=== PATIENT | female | born 1980 | race Caucasian/White ===

== ENCOUNTER 2020-11-20 11:30 | Outpatient (RCR) | payer OTHER, SELFPAY ==
[2020-09-23 09:41] VITALS: BMI 31.5
[2020-10-14 12:40] VITALS: BMI 31.3
[2020-11-20 11:38] VITALS: BMI 30.8
[2020-11-20 11:39] VITALS: BMI 30.8
== END 2020-12-09 15:52 | disposition home or self-care (01) ==
LOC: ANHDMC 11:30
PROVIDERS: Visit Provider Obstetrics & Gynecology
DX: R63.5 Abnormal weight gain (principal); Z71.3 Dietary counseling and surveillance
CPT/HCPCS: 97802; 97803

== ENCOUNTER 2022-12-20 17:42 | Outpatient (CLI) | payer OTHER, SELFPAY ==
[2022-12-24 06:07] LABS: FSH 11.2 mIU/mL (***)
[2022-12-27 10:20] LABS: Estradiol, Ultrasensitive 106 pg/mL
== END 2022-12-20 17:43 | disposition home or self-care (01) ==
LOC: ANHLAB 17:44
PROVIDERS: Visit Provider Student in an Organized Health Care Education/Training Program
DX: N95.1 Menopausal and female climacteric states (principal)
CPT/HCPCS: 36415; 82670; 83001; 84443

== ENCOUNTER 2023-11-28 16:14 | Outpatient (CLI) | payer OTHER, SELFPAY ==
--- NOTE | ~2023-11-28 | XR_ITS ---
XR chest 2V 11/28/2023 16:29 Indication: Acute bronchitis Procedure: 2 view chest Comparison: 03/01/2007 Findings: There is left basilar atelectasis/scarring. No focal pneumonia, edema, pleural effusion or pneumothorax. No acute osseous abnormality. Impression: 1: Left basilar atelectasis/scarring. Reviewed, dictated and finalized at location B. Impression: 1: Left basilar atelectasis/scarring.
== END 2023-11-28 16:15 | disposition home or self-care (01) ==
LOC: ANHIMG 16:16
PROVIDERS: Visit Provider Internal Medicine
DX: J20.9 Acute bronchitis, unspecified (principal); R91.8 Other nonspecific abnormal finding of lung field
CPT/HCPCS: 71046

== ENCOUNTER 2024-07-24 17:06 | Outpatient (CLI) | payer OTHER, SELFPAY ==
--- OUTSIDE RECORDS SUMMARY | 2024-07-24 17:13 | XMS_ITS | Data Portability ---
Author Organization [facility] Address [address] [place] [address] Care Team Providers Care Supercalender Operator Name Role Phone DUNG DAY Primary Care Provider [phone] Assessment Encounter Date Assessment Date Assessment LastModified by Organization Details LastModified Time 08/25/2023 08/25/2023 Migraines stable hypothyroid stable dyslipidemia continue with atorvastatin I will see her back in October we will hold off on any blood work just yet we can get some of that later she will follow-up with her breast [email or web address] Not available 09/18/2023 18:33:42 11/03/2023 11/03/2023 healthy lifestyle care instructions continue current therapy atorvastatin levothyroxine and sumatriptan as needed Zyrtec buol-flv-xwstydu they are discussing with oncology what next step is for therapy for breast cancer follow up with me in 4 months. [email or web address] Not available 11/13/2023 19:28:34 11/28/2023 11/28/2023 obtain chest x-ray doxycycline 100 b.i.d. for 7 days she can continue with the Mucinex and we will give her a few days off work [email or web address] Not available 12/03/2023 13:41:20 04/02/2024 04/02/2024 healthy lifestyle care instructions continue current therapy atorvastatin levothyroxine and sumatriptan as needed Zyrtec [id number] they are discussing with oncology what next step is for therapy for breast cancer follow up with me in 4 months. we will try to obtain her Pap smear results also recommended to stay up-to-date on immunizations follow up with me in 4 months we will continue current therapy all questions have been answered and Oncology note has been reviewed [email or web address] Not available 04/15/2024 12:45:14 05/25/2024 05/25/2024 swabs in the office today for flu and COVID are negative push fluids Tylenol for aches and pains doxycycline 100 b.i.d. 1 week call if not improved [email or web address] Not available 05/26/2024 13:28:12 Plan of Treatment Reminders Order Date Submit Date Provider Last Modified By Organization Details Last Modified Time Details Appointments ANY 15 2024 03:15P Quique Day MD Not available Not available Not available Lab influenza virus A + B + SARS-CoV- 2 (COVID19) Ag panel, rapid IA, upper respirato ry specimen 2024 025 In-Office Order, Internal Use Only DO Not Attach Compendium DO Not Attach Compendium, Do Not Delete/merge, [id number] 05/25/2024 16:27:38 Referral None recorded. Procedures None recorded. Surgeries None recorded. Imaging XR, chest 2023 024 [email or web address] Not available 11/30/2023 18:08:44 Medication Orders doxycycli ne hyclate 100 mg capsule 2024 025 [email or web address] [id number], [address] [place], [address], 05/25/2024 16:27:38 doxycycli ne hyclate 100 mg capsule 2023 024 CYNDI [facility] #[id number], [address] [place], [address], 04/02/2024 11:37:40 Patient TargetsNo targets recorded. Patient Instructions Encounter Date Encounter Id Patient Instructions Last Modified By Organization Details Last Modified Time 11/03/2023 [id number] A healthy lifestyle: care instructions [email or web address] Not available 11/13/2023 19:28:52 04/02/2024 [id number] A healthy lifestyle: care instructions [email or web address] Not available 04/02/2024 12:11:22 05/25/2024 [id number] A healthy lifestyle: care instructions [email or web address] Not available 05/25/2024 16:27:38 Reason for Referral None Reported. Results Created Date Observation Date Name Description Value Unit Range Abnormal Flag Note LastModifiedBy Organization Detail LastModifiedTime 05/25/19 25 05/25/2024 influ alesia virus A + B + SARS- CoV-2 (COVI D19) Ag panel , rapid IA, upper respi rator y speci men Flu A negati ve Not Available In-Office Order Internal Use Only DO Not Attach Compendium DO Not Attach Compendium, Do Not Delete/merge, [id number] 05/25/2024 16:02:46 05/25/19 25 05/25/2024 influ alesia virus A + B + SARS- CoV-2 (COVI D19) Ag panel , rapid IA, upper respi rator y speci men Flu B negati ve Not Available In-Office Order Internal Use Only DO Not Attach Compendium DO Not Attach Compendium, Do Not Delete/merge, [id number] 05/25/2024 16:02:46 05/25/19 25 05/25/2024 influ alesia virus A + B + SARS- CoV-2 (COVI D19) Ag panel , rapid IA, upper respi rator y speci men Rapid SARS CoV 2 Ag, QL IA, respiratory specimen negati ve Not Available In-Office Order Internal Use Only DO Not Attach Compendium DO Not Attach Compendium, Do Not Delete/merge, [id number] 05/25/2024 16:02:46 11/29/19 24 11/28/2023 XR, chest No observ ation record ed. [facility] [address], [place], [address], 12/04/2023 15:12:16 Result Notes None recorded. Problems Name Problem SNOMED Code Status Onset Date Resolution Date Notes Provider Name and Address Organization Details Recorded Time Acute bronchitis 80546172 Active 2023 Ramírez Rahman MA null, [place] - [facility] 4 16:43:37 Migraine 94161647 Active 2024 Dung Day MD Attn: Tom amin,[address] [facility], [place], [address], [facility] - [facility] 5 12:36:09 Hypothyroidism 72337587 Active 2024 Dung Day MD Attn: Tom amin,[address] [facility], [place], [address], [facility] - [facility] 5 12:36:10 Obesity 292182602 Active 2024 Dung Day MD Attn: Tom amin,[address] [facility], [place], [address], [facility] - [facility] 5 12:36:11 Hyperlipidemia 73434181 Active 2024 Dung Day MD Attn: Tom amin,[address] [facility], [place], [address], [facility] - [facility] 5 12:36:12 History of malignant neoplasm of breast 268440096 Active 2024 Dung Day MD Attn: Tom amin,[address] [facility], [place], [address], [facility] - [facility] 5 12:36:26 Problem Notes None recorded. Procedures Surgical History Date Name Laterality Status Provider Name and Address Organization Details Recorded Time Breast Surgery completed Kandi De Santiago MA [facility] 08/25/2023 12:24:47 Mastectomy completed Kandi De Santiago MA [facility] 08/25/2023 12:25:10 Imaging Results Imaging Date Name Status LastModified by Organiz ation Details LastModified Time 11/28/2023 XR, chest completed [facility] [address], [place], [address], 12/04/2023 15:12:16 Procedure Notes None recorded. Medical Equipment None Reported. Allergies Allergen ID Allergen Name Allergen Category Reaction Reaction Severity Criticality Documentation Date Start Date Code Code System Note Provider Name and Address Organization Details Recorded Time 815441 Substance with sulfonami de structure and antibacte rial mechanism of action (substanc e) medicatio n hives swelling Not available Not available Not available 08/25/2023 18031 8003 SNOMED Not Available Not Available Not Available 833751 Product containin g penicilli n (product) medicatio n hives swelling Not available Not available Not available 08/25/2023 55640 8001 SNOMED Not Available Not Available Not Available 526408 Macrobid medicatio n hives swelling Not available Not available Not available 08/25/2023 70237 1 RxNorm Not Available Not Available Not Available 792098 nitrofura ntoin medicatio n hives swelling Not available Not available high 05/25/2024 7454 RxNorm Throa t swell ing Not Available Not Available Not Available Medications Name Sig Start Date Stop Date Status Note LastModified by Organization Details LastModified Time anastrozole 1 mg tablet TAKE 1 TABLET (1 MG TOTAL) BY MOUTH DAILY START 11/30/23 active Not Available Not Available No t Available doxycycline hyclate 100 mg capsule TAKE 1 CAPSULE BY MOUTH TWICE A DAY FOR 10 DAYS active Not Available Not Available No t Available atorvastati n 10 mg tablet TAKE 1 TABLET BY MOUTH EVERY DAY active Not Available Not Available No t Available sumatriptan 50 mg tablet TAKE 1 TABLET BY MOUTH AT ONSET OF HEADACHE. MAY REPEAT IN 2 HOURS. MAX 2 TABS/12 HOURS 2024 active Not Available Not Available Not Avai lable levothyroxi ne 75 mcg tablet TAKE 1 TABLET BY MOUTH EVERY DAY active Not Available Not Available No t Available ferrous sulfate 325 mg (65 mg iron) tablet TAKE 1 TABLET BY MOUTH 3 TIMES A DAY WITH MEALS. 11/27 completed Not Available Not Available Not Available prednisone 50 mg tablet PLEASE SEE ATTACHED FOR DETAILED DIRECTION S 04/02 completed Not Available Not Available Not Available norethindro ne (contracept juany) 0.35 mg tablet 0.35 MG ORALLY DAILY 08/24 completed Not Available Not Available Not Available cefdinir 300 mg capsule TAKE 1 CAPSULE BY MOUTH EVERY 12 HOURS FOR 7 DAYS 08/24 completed Not Available Not Available Not Available oxycodone 5 mg tablet 08/24 completed Not Available Not Available Not Available Lupron Depot once a month active Not Available Not Available No t Available Vitals Date Recorded Body weight Body mass index (BMI) Body height Heart rate Oxygen saturation Oxygen saturation in Arterial blood by Pulse oximetry Systolic blood pressure Diastolic blood pressure Provider Name and Address Organization Details Last Updated DateTime 40281.9 2 g 31.3 kg/m2 167.64 cm 65 /min 99 % 99 % 124 mm[Hg] 80 mm[Hg] Kandi Anyi, MA [facility] 4 12:40:29 Date Recorded Body height Body mass index (BMI) Body weight Heart rate Oxygen saturation Oxygen saturation in Arterial blood by Pulse oximetry Systolic blood pressure Diastolic blood pressure Provider Name and Address Organization Details Last Updated DateTime 4 167.64 cm 33.2 kg/m2 44245.8 7 g 66 /min 99 % 99 % 140 mm[Hg] 80 mm[Hg] Roxana Wynn MA [facility] 4 16:29:29 Date Recorded Body height Body mass index (BMI) Body weight Heart rate Oxygen saturation Oxygen saturation in Arterial blood by Pulse oximetry Systolic blood pressure Diastolic blood pressure Provider Name and Address Organization Details Last Updated DateTime 4 167.64 cm 32.1 kg/m2 93137.1 7 g 76 /min 98 % 98 % 132 mm[Hg] 68 mm[Hg] Ely Locke MA [facility] 4 16:13:17 Date Recorded Body height Body mass index (BMI) Body weight Heart rate Oxygen saturation Oxygen saturation in Arterial blood by Pulse oximetry Systolic blood pressure Diastolic blood pressure Provider Name and Address Organization Details Last Updated DateTime 4 167.64 cm 32.8 kg/m2 77996.2 5 g 63 /min 98 % 98 % 130 mm[Hg] 76 mm[Hg] Lyric Abdi MA [facility] 4 11:36:58 Date Recorded Body height Body mass index (BMI) Body weight Heart rate Oxygen saturation Oxygen saturation in Arterial blood by Pulse oximetry Systolic blood pressure Diastolic blood pressure Provider Name and Address Organization Details Last Updated DateTime 5 167.64 cm 32.8 kg/m2 85719.2 5 g 99 /min 100 % 100 % 124 mm[Hg] 80 mm[Hg] Lyric Abdi MA [facility] 5 15:08:51 Social History Question Answer Notes LastModified by Organizat ion Details LastModified Time Tobacco Smoking Status Never Smoker Kandi De Santiago MA null, [facility] 08/25/2023 12:27:27 What Is Your Level Of Alcohol Consumption? Occasional Information not available 08/25/2023 Are You Blind Or Do You Have Difficulty Seeing? No Information n ot available 08/25/2023 In The 14 Days Before Symptom Onset, Have You Had Close Contact With A Laboratory-confirm ed COVID-19 While That Case Was Ill? No Information n ot available 11/03/2023 In The 14 Days Before Symptom Onset, Have You Had Close Contact With A Person Who Is Under Investigation For COVID-19 While That Person Was Ill? No Information not available 11/03/2023 Have You Been To An Area Known To Be High Risk For COVID-19? No Information not available 11/03/2023 Are You Currently Employed? Yes Information not available 11/03/2023 Are You Deaf Or Do You Have Serious Difficulty Hearing? No Information not available 08/25/2023 What Type Of Diet Are You Following? REGULAR Information n ot available 11/03/2023 Are There Any Guns Present In Your Home? No Information not available 11/03/2023 What Was The Date Of Your Most Recent Tobacco Screening? 05/25/2024 [email or web address] Information not available 05/25/2024 What Is Your Relationship Status? Information not available 08/25/2023 Do You Use Your Seat Belt Or Car Seat Routinely? Yes Information not available 08/25/2023 Do You Have Smoke And Carbon Monoxide Detectors In Your Home? Yes Information not available 11/03/2023 Do You Feel Stressed (tense, Restless, Nervous, Or Anxious, Or Unable To Sleep At Night)? [id number] Information not available 08/25/2023 Do You Use Any Illicit Or Recreational Drugs? No Information not available 11/03/2023 Do You Use Sunscreen Routinely? Yes Information not available 11/03/2023 Has Tobacco Cessation Counseling Been Provided? No Information not available 11/03/2023 Sex: Female Functional Status Question Answer Note LastModified by Organization D etails LastModified Time Are you able to care for yourself? Yes Information n ot available 08/25/2023 What is your exercise level? None Information not available 11/03/2023 Mental Status None recorded. Family History Relationship Description Onset Age of this Age Resolved Age Notes LastModified by Organization Details LastModified Time Mother Disorder of thyroid gland [email or web address] Not available 2023 12:26:02 Sister Disorder of thyroid gland [email or web address] Not available 2023 12:26:02 Sister Migraine [email or web address] Not availabl e 08/25/2023 12:27:06 Medical History Condition Response Cancer Y Headaches Y Thyroid Problems Y High Cholesterol Y Gynecological History Statement/Question Response If Post Menopausal, Age at Menopause 43 Obstetrics History GPAL:G 1 P 1 0 0 1 Type Value Full Term 1 Living 1 Total 1 Past Encounters Encounter ID Performer Location Encounter Start Date Encounter Closed Date Diagnosis/Indication Diagnosis SNOMED-CT Code Diagnosis ICD10 Code Diagnosis Note [id number] Dung Day MD [facility] [employer]: [facility] [employer] [facility] [facility] [place] [address] [place] [address] 08/25/2023 12:08:18 08/25/2023 13:04:56 Migraine 85041200 G43.909 Hypothyroidism 36282077 E03.9 Malignant tumor of breast 645575601 C50.165 [id number] Dung Day MD [facility] [employer]: [facility] [employer] [facility] [place] [address] [place] [address] 11/03/2023 16:06:16 11/03/2023 17:14:48 Obesity 668472321 E66.8 Hyperlipidemia 95968007 E78.5 Hypothyroidism 26559822 E03.9 Migraine 13704719 G43.90 9 [id number] Dung Day MD [facility] [employer] [facility] [place] [address] [place] [address] 11/28/2023 15:52:17 11/28/2023 16:47:06 Acute bronchitis 22616864 J20.9 [id number] Dung Day MD [facility] [employer]: [facility] [employer] [facility] [place] [address] [place] [address] 04/02/2024 11:19:22 04/02/2024 12:37:44 Body mass index 30+ - obesity 874750049 Z68.32 Overweight 921166846 E66 .3 Hyperlipidemia 61091236 E78.5 Obesity 199554584 E66.81 1 Hypothyroidism 59560694 E03.9 Migraine 31501466 G43.90 9 History of malignant neoplasm of breast 950757266 Z85.3 [id number] [facility] [address] [place] [address] 05/25/2024 14:47:42 05/25/2024 15:54:09 Body mass index 30+ - obesity 204001256 Z68.32 Obesity 894715212 E66.9 Bronchitis 04715887 J40 Upper resp iratory infection 99256193 J06.9 Health Concerns Section Related Observation LastModified by Organization Detai ls LastModified Time None Recorded Concern Status LastModified by Organization Details LastModified Time None Recorded Advance Directives Directive None Recorded Payers Encounter Date Sequence Insurance Name Policy Number Policy Ndiaye Covered Member ID Ndiaye Member ID Guarantor Name 08/25/2023 1 [facility] [id number] Beverly Allen [id number] Beverly Allen 08/25/2023 2 [facility] [id number] Dylon Allen [id number] Beverly Allen 11/03/2023 1 [facility] [id number] Beverly Allen [id number] Beverly Allen 11/03/2023 2 [employer] [id number] Dylon Allen [id number] Beverly Allen 11/28/2023 1 [facility] [id number] Beverly Allen [id number] Beverly Allen 11/28/2023 2 [facility] [id number] Dylon Allen [id number] Beverly Allen 04/02/2024 1 [facility] [id number] Beverly Allen [id number] Beverly Allen 04/02/2024 2 [facility] [id number] Dylon Allen [id number] Beverly Allen 05/25/2024 1 [facility] [id number] Beverly Allen [id number] Beverly Allen 05/25/2024 2 [facility] [id number] Dylon Allen [id number] Beverly Allen Notes Date Note Type Note Provider Name and Address Organization Details Recorded Time text/html 44 for follow-up of medical problems migraines have been doing fine hypothyroid she is a little bit tired and dyslipidemia does take her atorvastatinBiggest issue right now is invasive lobular carcinoma the right breast she underwent mastectomy with subsequent postop hematoma requiring evacuation and drainage. Slow steady improvement in today says that she is feeling pretty good Dung Day MD Attn: Accounting,[address] [facility], [place], [address], [place] [facility] 09/18/2023 18:35:23 4 text/html 1. Headache stable. 2. Hypothyroid no heat or cold intolerance. 3. Dyslipidemia takes her atorvastatin trying to watch diet. 4. Breast cancer working through issues with her specialists. 5. Zyrte for her allergies Dung Day MD Attn: Accounting,[address] [facility], [place], [address], [place] [facility] 11/13/2023 19:28:54 4 text/html 2 weeks of some cough and now getting a little bit yellow sputum no fever no chills she has tried some Mucinex she has had some fatigue but she has not been short of breath Dung Day MD Attn: Accounting,[address] [facility], [place], [address], [place] [facility] 12/03/2023 13:41:36 4 text/html follow up of medical problems hypothyroid no heat or cold intolerance dyslipidemia she was trying to follow a low-fat diet migraines have been stable she is following up with Oncology for her breath breast cancer Dung Day MD Attn: Accounting,[address] [facility], [place], [address], [place] [facility] 04/15/2024 12:45:33 5 text/html 2 days sinus congestion now that is turning a little bit yellow she is going to lot of drainage that is developed into a little bit of a cough no fever or chills but maybe low-grade temp has not had any myalgias. This morning she started coughing a fair amount of yellow sputum up Dung Day MD Attn: Accounting,[address] [facility], [place], [address], [place] [facility] 05/26/2024 13:28:43 OBGyn Episode No OBEpisode recorded.
--- OUTSIDE RECORDS SUMMARY | 2024-07-24 17:14 | XMS_ITS | Clinical Summary ---
Author Organization [facility] [address] [facility] nya Address [address] [facility] [place] [address] Care Team Providers Care Metal Fabricator Helper Name Role Phone Israel Day MD Primary Care Provider [phone] Alhaji Guerrero MD Unavailable [phone] Celi Rodríguez MD Unavailable [phone] Yony Iverson DO Unavailable [phone] Allergies Active Allergy Reactions Criticality Noted Date Comments Nitrofurantoin Hives,Swelling Medium Throat swelling Penicillins Other (See comments) Low Was informed of this in childhood, unsure of reaction Sulfa (Sulfonamide Antibiotics) Hives,Swelling Medium Throat swelling Medications atorvastatin (LIPITOR) 10 mg tablet Take 1 tablet (10 mg total) by mouth nightly 01/20/20 21 Active cetirizine (ZyrTEC) 10 mg tablet Take 1 tablet every day by oral route as needed. 05/08/19 21 Active levothyroxine (SYNTHROID) 75 mcg tablet Take 1 tablet (75 mcg total) by mouth daily Active SUMAtriptan (IMITREX) 50 mg tablet TAKE 1 TABLET BY MOUTH AT ONSET OF HEADACHE. MAY REPEAT IN 2 HOURS, ONLY 2 PILLS IN 12 HOUR SPAN Active acetaminophen-asp irin-caffeine (EXCEDRIN MIGRAINE) 250-250-65 mg per tablet Take 2 tablets by mouth every 6 (six) hours as needed for headaches Active BLACK COHOSH ORAL Take 1 tablet by mouth 2 (two) times a day Active evening primrose oil 500 mg capsule Take 2 capsules (1,000 mg total) by mouth daily Active predniSONE (DELTASONE) 50 mg tablet Take 1 tablet (50 mg) by mouth as needed (Prior to CT) TAKE 13 HRS, 7 HRS, AND [address] SCAN. TAKE WITH OTC BENADRYL 50 MG 1 HR PRIOR 3 tablet 03/12/20 24 Active anastrozole (ARIMIDEX) 1 mg tabletIndications :Early Breast Cancer HR Positive and Postmenopausal Take 1 tablet (1 mg total) by mouth daily 30 tablet 5 07/21/19 25 025 Active azithromycin (Zithromax Z-Dimitrios) 250 mg tablet Take 2 tablets (500 mg total) by mouth daily for 1 day, THEN 1 tablet (250 mg total) daily for 4 days. 6 tablet 07/25/19 25 025 Active anastrozole (ARIMIDEX) 1 mg tabletIndications :Early Breast Cancer HR Positive and Postmenopausal Take 1 tablet (1 mg total) by mouth daily Start 11/30/23 90 tablet 1 01/05/20 24 025 Discontinued Active Problems Problem Noted Date Diagnosed Date Personal history of radiation therapy 12/07/2023 Anxiety disorder 07/18/2023 Hyperlipidemia 07/18/2023 Invasive lobular carcinoma of breast, stage 1, r ight 06/28/2023 Cancer Staging:Pathologic stage from 09/27/2023:Stage IB(pT3, pN1(sn), cM0, G1, ER+, ND+, HER2-) - Signed by Celi Rodríguez MD on 09/27/2023 Breast mass 02/08/2021 Mastodynia 02/08/2021 Hypothyroidism 01/19/2021 Knee pain 10/08/2013 Resolved Problems Problem Noted Date Diagnosed Date Resolved Date Invasive ductal carcinoma of breast, female, right 06/28/2023 06/28/2023 Encounters Date Type Department Care Team Description 07/24/2024 Orders Only [facility] Oncology [address] [facility] [address] [place] [phone] Yony Iverson DO 07/19/2024 4:30 PM CDT Infusion [facility] at [address] [place] [address] Invasive lobular carcinoma of breast, stage 1, right (HCC) (Primary Dx) 07/18/2024 Orders Only [facility] [address] [place] [phone] Yony Iverson DO 06/21/2024 4:00 PM CDT Office Visit [facility] Medical Office Building 2 Radiation Oncology [address] [place] [phone] Melissa Flor PA Invasive lobular carcinoma of breast, stage 1, right (HCC) (Primary Dx); Personal history of radiation therapy 06/21/2024 1:45 PM CDT Infusion [facility] at [address] [phone] Invasive lobular carcinoma of breast, stage 1, right (HCC) (Primary Dx) 06/21/2024 1:15 PM CDT Office Visit [facility] [address] [place] [phone] Yony Iverson, Invasive lobular carcinoma of breast, stage 1, right (HCC) (Primary Dx); Malignant neoplasm of female breast, unspecified estrogen receptor status, unspecified laterality, unspecified site of breast (HCC) 06/21/2024 12:30 PM CDT Lab [address] [address] Invasive lobular carcinoma of breast, stage 1, right (HCC) 06/21/2024 Orders Only [facility] [address] [place] [phone] Yony Iverson DO 05/24/2024 3:45 PM PROJECT MANAGER SENIOR Infusion [facility] at [address] [phone] Invasive lobular carcinoma of breast, stage 1, right (HCC) (Primary Dx) 05/24/2024 Orders Only [facility] [address] [place] [phone] Yony Iverson DO 04/26/2024 3:45 PM PROJECT MANAGER SENIOR Infusion [facility] at [facility] [address] [place] [address] Invasive lobular carcinoma of breast, stage 1, right (HCC) (Primary Dx) 04/25/2024 Orders Only [facility] [address] [facility] [address] [place] [address] Yony Iverson DO from Last 3 Months Surgical History Surgery Date Site/Laterality Comments BREAST BIOPSY 06/21/2023 Right local in office MASTECTOMY Bilateral Medical History Medical History Date Comments Headache Overweight Hypercholesteremia Thyroid disease Anxiety Heart murmur informed of this as a child. Allergic rhinitis Asthma as a child Family History Medical History Relation Name Comments Bone cancer Father Ovarian cancer Father's Sister Heart attack Maternal Grandfather Colon cancer Maternal Grandmother Bone cancer Mother Liver cancer Mother Throat cancer Mother No Known Problems Paternal Grandfather Ovarian cancer Paternal Grandmother Relation Name Status Comments Father Father's Sister Maternal Grandfather Maternal Grandmother Mother Paternal Grandfather Paternal Grandmother Social History Tobacco Use Types Packs/Day Years Used Date Smoking Tobacco: Never Passive Smoke Exposure: Past Smokeless Tobacco: Never Tobacco Cessation:Counseling Given: Not Answered Passive Exposure Comments:as a child [facility] Utilities Answer Date Recorded In the past 12 months has th e electric, gas, oil, or water company threatened to shut off services in your home? No 08/12/2023 Social Connection and Isolat ion Panel [NHANES] Answer Date Recorded In a typical week, how many times do you talk on the phone with family, friends, or neighbors? More than three times a week 08/12/2023 How often do you get togethe r with friends or relatives? More than three times a week 08/12/2023 How often do you attend chur ch or pentecostal services? Never 08/12/2023 Do you belong to any clubs o r organizations such as yazidi groups, unions, fraternal or athletic groups, or school groups? No 08/12/2023 How often do you attend meet ings of the clubs or organizations you belong to? Never 08/12/2023 Are you , , di vorced, , never , or living with a partner? 08/12/2023 AUDIT-C Answer Date Recorded Q1: How often do you have a drink containing alc ohol? Monthly or less 08/10/2023 Q2: How many drinks containi ng alcohol do you have on a typical day when you are drinking? 1 or 2 08/10/2023 Q3: How often do you have si x or more drinks on one occasion? Never 08/10/2023 Overall Financial Resource Strain (CARDIA) Answe r Date Recorded How hard is it for you to pa y for the very basics like food, housing, medical care, and heating? Not very hard 08/12/2023 Hunger Vital Sign Answer Date Recorded Within the past 12 months, y ou worried that your food would run out before you got the money to buy more. Never true 08/12/19 24 Within the past 12 months, t he food you bought just didn't last and you didn't have money to get more. Never true 08/12/2023 PRAPARE - Transportation Answer Date Re corded In the past 12 months, has l ack of transportation kept you from medical appointments or from getting medications? No 06/2023 In the past 12 months, has l ack of transportation kept you from meetings, work, or from getting things needed for daily living? No 08/12/2023 Housing Stability Vital Sign Answer Corby e Recorded In the last 12 months, was t here a time when you were not able to pay the mortgage or rent on time? No 08/12/2023 In the last 12 months, how many places have you lived? 1 08/12/2023 In the last 12 months, was t here a time when you did not have a steady place to sleep or slept in a alf (including now)? No 08/12/2023 Personal Safety Answer Date Recorded Have you ever been in or are you currently in a harmful physical or emotional relationship or is someone making you feel afraid or unsafe? 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 Not on file Not on file Not on maría e Obstetrics History Para Term AB IAB SAB Ectopic Multiple Livin g Live Births 1 Date Outcome GA Total Labor Labor/2nd/3rd Weight Sex Type Anes PTL Iris A1 A5 Name Clin Last Filed Vital Signs Vital Sign Reading Time Taken Comments Blood Pressure 155/90 07/19/2024 3:50 PM CDT Pulse 69 07/19/2024 3:50 PM CDT Temperature 36.7 C (98 F) 07/19/2024 3:50 PM CDT Respiratory Rate 18 07/19/2024 3:50 PM CDT Oxygen Saturation 100% 07/19/2024 3:50 PM CDT Inhaled Oxygen Concentration - - Weight 93.6 kg (206 lb 6.4 oz) 07/19/2024 3:50 P M CDT Height 167.6 cm (5' 5.98 ) 08/10/2023 1:50 PM CD T Body Mass Index 33.33 08/10/2023 1:50 PM CDT Plan of Treatment Health Maintenance Due Date Last Done Comments Cervical Cancer Screening 1979 Colon Cancer Screening-Colonoscopy 1979 Depression Screening 1979 Hepatitis C Screening 1979 Regular Well Visit/Exam 18-64 1997 Pneumococcal vaccine <65 (1 of 2 - PCV) 1998 Zoster Vaccine (1 of 2) 1998 DTaP/Tdap/Td Vaccine (1 - Tdap) 12/03/2003 12/02/2003 Covid-19 Vaccine (2 - Vic risk series) 08/13/2020 07/16/2020, 07/10/2020 Breast Cancer Screening-Mammogram 06/07/2024 06/07/2023, 05/03/2022, 01/08/2021, Additional history exists Influenza Vaccine (Season Ended) 2024 Hepatitis B Screening Completed 12/27/2003, 004 HPV Vaccines Aged Out No longer eligi ble based on patient's age to complete this topic Medical Devices Implanted Type Area Dimension Mill Worker Device Identifier Shelf Expiration Date Model / Serial / Lot 480 Biomedical [facility] Eviva 13cm Identifier Biopsy Site [id number] - [id number] Implanted:Qty: 1 on 06/21/2023 by Alhaji Guerrero MD at [facility] [id number] 12/01/2023 SMARK-EVIV A-13 / / [id number] Procedures Procedure Name Priority Date/Time Associated Diagnosis Comments EGFR Routine 06/21/2024 12:30 PM CDT Invasive lobular carcinoma of breast, stage 1, right (HCC) DIFFERENTIAL AUTO Routine 06/21/2024 12: 30 PM CDT Invasive lobular carcinoma of breast, stage 1, right (HCC) CANCER ANTIGEN 15-3 Routine 06/21/2024 1 2:30 PM CDT Invasive lobular carcinoma of breast, stage 1, right (HCC) CBC WITH AUTO DIFFERENTIAL Routine 06/21/2024 12:30 PM CDT Invasive lobular carcinoma of breast, stage 1, right (HCC) COMPREHENSIVE METABOLIC PANEL Routine 06/21/2024 12:30 PM CDT Invasive lobular carcinoma of breast, stage 1, right (HCC) DIAGNOSTIC MAMMOGRAM BILATERAL W LOC Schedule Routine, Read Routine (OP Routine) 06/07/2023 10:49 AM PROJECT MANAGER SENIOR Mastodynia from Last 3 Months or Most Recently Relevant to Health Maintenance Results * eGFR (06/21/2024 12:30 PM CDT) eGFR >90 >=60 mL/min/1. 73 m2 Comment: Interpretive Data Reference Interval Normal >/= 90 mL/min/1.73m2 Mildly decreased* 60 - 89 mL/min/1.73m2 Mildly to moderately decreased 45 - 59 mL/min/1.73m2 Moderately to severely decreased 30 - 44 mL/min/1.73m2 Severely decreased 15 - 29 mL/min/1.73m2 Kidney Failure < 15 mL/min/1.73m2 *Relative to young adult level Estimated glomerular filtration rate is determined by the 2020 CKD-EPI equation recommended by the National Kidney Foundation (A Unifying Approach to GFR Estimation: Recommendations of the NKF-ASK Task Force on Reassessing the Inclusion of Race in Diagnosing Kidney Disease, JASN 2020). The CKD-EPI equation should not be used for patients with unstable renal function and has not been validated in children and those over 70. Current interpretive data was last reviewed 2021. Testing performed by: [address] [address] Blood 06/21/2024 12:3 0 PM CDT 06/21/2024 12:31 PM CDT us Yony Iverson DO LAB BLOOD ORDERABLES Final R esult [facility] [address] [facility] Department of Laboratories [place], [place] [id number] * Differential, auto (06/21/2024 12:30 PM CDT) Neutrophil abs 5.9 1.5 - 6.5 K/cumm Comment:Testing performed by : [address] [address] Imm gran abs 0.1 0.0 - 0.1 K/cumm RHINA Comment:Testing performed by : [address] [address] Lymphocyte abs 1.0 0.8 - 3.3 K/cumm RHINA Comment:Testing performed by : [address] [address] Monocyte abs 0.5 0.2 - 0.8 K/cumm RHINA Comment:Testing performed by : [address] [address] Eosinophil abs 0.2 0.0 - 0.5 K/cumm RHINA Comment:Testing performed by : [address] [address] Basophil abs 0.0 0.0 - 0.1 K/cumm RHINA Comment:Testing performed by : [address] [address] Neutrophil pct 76.3 % RHINA Comment: Interpretive Data Percent cell count reference ranges are not reported, since discordance with absolute values may lead to misinterpretation of CBC data. Current Interpretive Data was last revised on 2017. Testing performed by: [address] [address] Imm gran pct 0.8 % [facility] Comment: Interpretive Data Percent cell count reference ranges are not reported, since discordance with absolute values may lead to misinterpretation of CBC data. Current Interpretive Data was last revised on 2017. Testing performed by: [address] [address] Lymphocyte pct 13.2 % [facility] Comment: Interpretive Data Percent cell count reference ranges are not reported, since discordance with absolute values may lead to misinterpretation of CBC data. Current Interpretive Data was last revised on 2017. Testing performed by: [address] [address] Monocyte pct 6.6 % [facility] Comment: Interpretive Data Percent cell count reference ranges are not reported, since discordance with absolute values may lead to misinterpretation of CBC data. Current Interpretive Data was last revised on 2017. Testing performed by: [address] [address] Eosinophil pct 2.8 % [facility] Comment: Interpretive Data Percent cell count reference ranges are not reported, since discordance with absolute values may lead to misinterpretation of CBC data. Current Interpretive Data was last revised on 2017. Testing performed by: [address] [address] Basophil pct 0.3 % [facility] Comment: Interpretive Data Percent cell count reference ranges are not reported, since discordance with absolute values may lead to misinterpretation of CBC data. Current Interpretive Data was last revised on 2017. Testing performed by: [address] [address] Blood 06/21/2024 12:3 0 PM CDT 06/21/2024 12:31 PM CDT us Yony Iverson DO LAB BLOOD ORDERABLES Final R esult [facility] [address] [facility] [place] [address] * CBC with auto differential (06/21/2024 12:30 PM CDT) [facility] WBC 7.7 3.8 - 9.9 K/cumm Comment:Testing performed by : [address] [address] Hgb 12.7 11.9 - 15.5 g/dL RHINA Comment:Testing performed by : [address] [address] Hct 39.1 35.6 - 45.5 % RHINA Comment:Testing performed by : [address] [address] Plt 265 150 - 400 K/cumm RHINA Comment:Testing performed by : [address] [address] MPV 9.3 9.1 - 12.3 fL RHINA Comment:Testing performed by : [address] [address] RBC 4.64 3.90 - 5.20 M/cumm RHINA Comment:Testing performed by : [address] [address] MCV 84.3 81.3 - 96.4 fL RHINA Comment:Testing performed by : [address] [address] MCH 27.4 27.1 - 33.3 pg RHINA Comment:Testing performed by : [address] [address] MCHC 32.5 32.3 - 35.7 g/dL RHINA Comment:Testing performed by : [address] [address] RDW CV 13.9 11.1 - 14.9 % [facility] Comment:Testing performed by : [address] [address] RDW SD 42.9 35.7 - 48.1 fL [facility]INA Comment:Testing performed by : [address] [address] NRBC abs 0.00 0.00 - 0.01 K/cumm RHINA Comment:Testing performed by : [address] [address] Blood 06/21/2024 12:3 0 PM CDT 06/21/2024 12:31 PM CDT Yony DominguezFrandy Kishor [facility] BLOOD ORDERABLES Final R [facility] Performing Organization Address [facility] [address] [facility] de Phone Number [address] [address] * Cancer antigen 15-3 (06/21/2024 12:30 PM CDT) [facility] CA 15-3 ag 15.8 0.0 - 25.0 units/mL Comment: Interpretive Data The Annmarie CA 15-3 assay procedure was used. Results from different manufacturers or methods may not be comparable. Serial testing should be performed using the same method. Testing performed by: [address] [address] Blood 06/21/2024 12:3 0 PM CDT 06/21/2024 1:36 PM CDT Yony DominguezFrandy Kishor [facility] BLOOD ORDERABLES Final RUST Performing Organization Address [facility] [address]/[facility] de Phone Number [address] [address] * Comprehensive metabolic panel (06/21/2024 12:30 PM CDT) [facility] Sodium 142 135 - 145 mmol/L Comment:Testing performed by : [address] [address] Potassium, pl 4.3 3.3 - 4.9 mmol/L RHINA LEOS Comment:Testing performed by : [address] [address] Chloride 107 97 - 110 mmol/L RHINA Comment:Testing performed by : [address] [address] CO2 25 22 - 32 mmol/L RHINA Comment:Testing performed by : [address] [address] Anion gap 10 2 - 15 mmol/L RHINA Comment:Testing performed by : [address] [address] BUN 25 6 - 25 mg/dL RHINA Comment:Testing performed by : [address] [address] Creatinine 0.80 0.60 - 1.10 mg/dL RHINA Comment:Testing performed by : [address] [address] Glucose 88 70 - 199 mg/dL RHINA Comment: Interpretive Data Fasting glucose >/= 126 mg/dl is diagnostic for diabetes. Fasting is defined as no caloric intake for at least 8 hours. Fasting glucose between 100 mg/dl to 125 mg/dl is diagnostic of prediabetes. In a patient with classic symptoms of hyperglycemia or hyperglycemic crisis, a random glucose >/= 200 mg/dl is diagnostic for diabetes. In the absence of unequivocal hyperglycemia, results should be confirmed by repeat testing. The classification and Diagnosis of Diabetes Diabetes Care 2021; 46: S19-S40. Current interpretive data was last revised 2022. Testing performed by: [address] [address] Calcium 9.9 8.5 - 10.3 mg/dL RHINA Comment:Testing performed by : [address] [address] Bilirubin, total 0.2 0.1 - 1.2 mg/dL RHINA Comment:Testing performed by : [address] [address] Protein, pl 7.4 6.5 - 8.5 g/dL RHINA Comment:Testing performed by : [address] [address] Albumin 4.5 3.5 - 5.0 g/dL RHINA Comment:Testing performed by : [address] [address] Alk phos 104 40 - 130 Units/L RHINA Comment:Testing performed by : [facility], [address] [place] [address]., [address] ALT 25 7 - 45 Units/L RHINA LEOS Comment:Testing performed by : [address] [address] AST 23 10 - 45 Units/L RHINA LEOS Comment:Testing performed by : [address] [address] Blood 06/21/2024 12:3 0 PM CDT 06/21/2024 12:31 PM CDT us Yony Iverson DO LAB BLOOD ORDERABLES Final R esult [facility] LE[facility] [address] [facility] [place] [address] * (ABNORMAL) Diagnostic Mammogram Bilateral W Loc (06/07/2023 10:49 AM PROJECT MANAGER SENIOR) Anatomical Region Laterality Modality Breast Bilateral Mammography 06/07/2023 12:2 2 PM PROJECT MANAGER SENIOR Narrative 06/07/2023 12:30 PM PROJECT MANAGER SENIOR EXAM DESCRIPTION: US BREAST BILATERAL LIMITED; DIAGNOSTIC MAMMOGRAM BILATERAL W LOC REASON FOR STUDY: Pain and palpable concern of the right breast. COMPARISON: 05/03/2022, 01/08/2021, 12/05/2019, 11/19/2019 FINDINGS: Full field digital mammographic views with digital breast tomosynthesis of both breasts were performed. Targeted sonographic examination of the bilateral breast was also performed with real-time grayscale images and color Doppler. FINDINGS: MAMMOGRAPHIC FINDINGS: DENSITY: The breasts are heterogeneously dense, which may obscure small masses. BREASTS: There is a skin marker overlying the area of concern in the right breast. Subjacent to the marker in the upper-outer mid right breast are multiple masses with obscured margins. There is new architectural distortion in the central right breast 12 cm behind the nipple. There is a group of masses in the central left breast 10-13 cm behind the nipple with obscured margins. There are additional similar-appearing masses in the bilateral breasts with circumscribed margins. Findings are benign. No suspicious calcifications in either breast. ULTRASOUND FINDINGS: Right breast: Targeted sonogram was performed at the area of concern in the right breast at the 9:30 o'clock position 11 cm from the nipple. There is a 4.8 x 2.8 x 4.2 cm simple cyst. There is no sonographic correlate for the architectural distortion in the central right breast 12 cm behind the nipple. Left breast: There are multiple simple cysts at the 11-11:30 O'clock position 10 cm from the nipple corresponding to the group of masses in the central left breast 10-13 cm behind the nipple measuring 3.1 cm as a conglomerate. IMPRESSION: 1. Targeted sonogram was performed at the area of concern in the right breast at the 9:30 o'clock position 11 cm from the nipple. There is a 4.8 x 2.8 x 4.2 cm simple cyst. This finding is benign. 2. New architectural distortion in the central right breast 12 cm behind the nipple without sonographic correlate. Finding is at low suspicion for malignancy. Recommend stereotactic guided biopsy of the right breast. 3. Additional masses in the bilateral breasts are consistent with benign simple cysts. BIRADS: 4a - Suspicious. Low suspicion for malignancy. I discussed the findings and impression with the patient at the time of the examination. We will attempt to contact the referring clinician, and the patient will be notified of the date and time of her biopsy appointment. THIS IS AN ELECTRONICALLY VERIFIED FINAL REPORT 06/07/2023 12:30 PM - Electronically signed by Krystal Ho M.D. QX: QX Report ID: [id number] Reading Location: [facility] [place] Pierce Alvarez MD IMG MAMMO PROCEDURES Fin al Result from Last 3 Months or Most Recently Relevant to Health Maintenance Insurance [facility] CHOICE PLUS [facility] [id number] [facility] [place] [address] [facility] CHOICE PLUS Advance Directives For more information, please contact: [phone] * Full Code (Latest Code Status on File) Date Activated Date Inactivated Comments 08/10/2023 1:46 PM 08/13/2023 1:51 PM Care Teams Metal Fabricator Helper Relationship Specialty Start Date End Date Israel Day MD PCP - General 11/19/19 Alhaji Guerrero MD [address] [place] [address] [address] [place], [place] [id number] Surgeon Surgery 06/24/23 Celi Rodríguez MD [address] [place] [address] [address] [place], [place] [id number] Radiation Oncologist Radiation Oncology 06/24/23 Yony Iverson DO [address] [place] [address] MEDICAL ONCOLOGY, [facility] [address] [place], [place] [address] Medical Oncologist/Sales Outfitter Hematology and Oncology 09/12/23
--- OUTSIDE RECORDS SUMMARY | 2024-07-24 17:14 | XMS_ITS ---
Author Organization [facility] [address] [facility] nya Address [address] [facility] [place] [address] Care Team Providers Care Construction Manager Name Role Phone Israel Day MD Primary Care Provider [phone] Alhaji Guerrero MD Unavailable [phone] Celi Rodríguez MD Unavailable [phone] Yony Iverson DO Unavailable [phone] Active Problems Problem Noted Date Diagnosed Date Personal history of radiation therapy 12/07/2023 Anxiety disorder 07/18/2023 Hyperlipidemia 07/18/2023 Invasive lobular carcinoma of breast, stage 1, r ight 06/28/2023 Cancer Staging:Pathologic stage from 09/27/2023:Stage IB(pT3, pN1(sn), cM0, G1, ER+, MI+, HER2-) - Signed by Celi Rodríguez MD on 09/27/2023 Breast mass 02/08/2021 Mastodynia 02/08/2021 Hypothyroidism 01/19/2021 Knee pain 10/08/2013 Current Treatment and Therapy Plans Leuprolide 28 Day Cycles - Breast* Plan Start Date:07/18/2023 Plan Provider:Yony Iverson DO Linked Problems Invasive lobular carcinoma o f breast, stage 1, right (HCC) Treatment Medications Current Day (Day 1 , Cycle 15 - Planned for 08/16/2024) Next Day (Day 1, Cycle 16 - Planned for 09/13/2024) leuprolide (LUPRON)leuprolid e (monthly) (LUPRON) leuprolide (LUPRON) injection 7.5 mg leuprolide (LUPRON) injection 7.5 mg Past Treatment and Therapy Plans No past plan information found. Radiation Treatments * Course [id number]_CW_202310/11/2023 - 11/02/2023 Treatment Period Energy Fraction Dose Fractions Total Dose Plans Planned RT CW NOBOL 10/12/2023 - 11/02/2023 266 8 / 2,128 RT CW BOLUS 10/11/2023 - 11/01/2023 266 8 / 2,128 Reference Points Delivered PTV_R_CW_eval 10/11/2023 - 11/02/2023 4,256 Resolved Problems Problem Noted Date Diagnosed Date Resolved Date Invasive ductal carcinoma of breast, female, right 06/28/2023 06/28/2023
--- OUTSIDE RECORDS SUMMARY | 2024-07-24 17:14 | XMS_ITS | Encounter Summary ---
Author Organization [facility] Address [address] [place] [address] Phone Care Team Providers Care Process Tank Tender Name Role Phone Israel Day MD Primary Care Provider + [phone] Alhaji Guerrero MD Unavailable [phone] Celi Rodríguez MD Unavailable [phone] Yony Iverson DO Unavailable [phone] Encounter Details Date Type Department Care Team (Late st Contact Info) Description 07/24/2024 Orders Only [facility] Oncology [address] [facility] [address] [place] [address] Yony Iverson DO [address] [address] Social History Tobacco Use Types Packs/Day Years Used Date Smoking Tobacco: Never Passive Smoke Exposure: Past Smokeless Tobacco: Never Passive Exposure Comments:as a child [facility] Utilities Answer Date Recorded In the past 12 months has [employer] electric, gas, oil, or water company threatened [...] often do you attend chur ch or rastafari services? 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 6 tablet 07/24/2024 documented in this encounter Progress Notes * Roxana Ramires RN - 07/24/2024 10:52 AM CDT Z Pack order per MD request. documented in this encounter Plan of Treatment Not on file documented as of this encounter Visit Diagnoses Not on filedocumented in this encounter Care Teams Process Tank Tender Relationship Specialty Start Date End Date Israel Day MD PCP - General 11/19/19 Alhaji Guerrero MD [address] [place] [address] [address] [place], [place] [phone] Surgeon Surgery 06/24/23 Celi Rodríguez MD [address] [place] [address] [address] [place], [place] [phone] Radiation Oncologist Radiation Oncology 06/24/23 Yony Iverson DO [address] [place] [address] MEDICAL ONCOLOGY, PAPI [address] [place], [place] [phone] Medical Oncologist/[employer] Member Hematology and Oncology 09/12/23 documented as of this encounter
--- OUTSIDE RECORDS SUMMARY | 2024-07-24 17:14 | XMS_ITS | Referral Summary ---
Author Organization [facility] [address] [facility] nya Address [address] [facility] [place] [address] Care Team Providers Care Choir Accompanist Name Role Phone Israel Day MD Primary Care Provider + [phone] Alhaji Guerrero MD Unavailable [phone] Celi Rodríguez MD Unavailable [phone] Yony Iverson DO Unavailable [phone] Encounters Date Type Department Care Team Description 07/24/2024 Orders Only [facility] Oncology [address] [facility] [address] [place] [address] Yony Iverson, 07/19/2024 4:30 PM CDT Infusion [address] [place] [phone] Invasive lobular carcinoma of breast, stage 1, right (HCC) (Primary Dx) 07/18/2024 Orders Only [facility] Physicians [facility] Oncology [address] [place] [address] [address] [place] [phone] Yony Iverson, 06/21/2024 Orders Only [facility] Oncology [address] [place] [address] [address] [place] [phone] Yony Iverson, 06/21/2024 1:45 PM CDT Infusion [address] [place] [address] Invasive lobular carcinoma of breast, stage 1, right (HCC) (Primary Dx) 06/21/2024 12:30 PM CDT Lab [facility] at [address] [address] Invasive lobular carcinoma of breast, stage 1, right (HCC) 06/21/2024 1:15 PM CDT Office Visit [facility] Oncology [address] [place] [phone] Yony Iverson DO Invasive lobular carcinoma of breast, stage 1, right (HCC) (Primary Dx); Malignant neoplasm of female breast, unspecified estrogen receptor status, unspecified laterality, unspecified site of breast (HCC) 06/21/2024 4:00 PM CDT Office Visit [facility] Medical Office Building 2 Radiation Oncology [address] [place] [address] Melissa Flor PA Invasive lobular carcinoma of breast, stage 1, right (HCC) (Primary Dx); Personal history of radiation therapy 05/24/2024 Orders Only [facility] Oncology [address] [place] [phone] Yony Iverson DO 05/24/2024 3:45 PM BILL PEDDLER Infusion [address] [phone] Invasive lobular carcinoma of breast, stage 1, right (HCC) (Primary Dx) 04/26/2024 3:45 PM BILL PEDDLER Infusion [facility] at [address] [phone] Invasive lobular carcinoma of breast, stage 1, right (HCC) (Primary Dx) 04/25/2024 Orders Only [facility] Oncology [address] [place] [phone] Yony Iverson DO from Last 3 Months Allergies Active Allergy Reactions Criticality Noted Date Comments Nitrofurantoin Hives,Swelling Medium Throat swelling Penicillins Other (See comments) Low Was informed of this in childhood, unsure of reaction Sulfa (Sulfonamide Antibiotics) Hives,Swelling Medium Throat swelling Medications atorvastatin (LIPITOR) 10 mg tablet Take 1 tablet (10 mg total) by mouth nightly 01/20/20 Active cetirizine (ZyrTEC) 10 mg tablet Take [...] from 09/27/2023:Stage IB(pT3, pN1(sn), cM0, G1, ER+, LA+, HER2-) - Signed by Celi Rodríguez MD on 09/27/2023 Breast mass 02/08/2021 Mastodynia 02/08/2021 Hypothyroidism 01/19/2021 Knee pain 10/08/2013 Resolved Problems Problem Noted Date Diagnosed Date Resolved Date Invasive ductal carcinoma of breast, female, right 06/28/2023 06/28/2023 Social History Tobacco Use Types Packs/Day Years Used Date Smoking Tobacco: Never Passive Smoke Exposure: Past Smokeless Tobacco: Never Tobacco Cessation:Counseling Given: Not Answered Passive Exposure Comments:as a child [facility] Utilities Answer Date Recorded In the past 12 months has e electric, gas, oil, or water company [...] often do you attend chur ch or yazdanism services? Never 08/12/2023 Do you belong to any clubs o r organizations such as adventist groups, unions, fraternal or athletic groups, or [...] place to sleep or slept in a [place] (including now)? No 08/12/2023 Personal Safety Answer Date Recorded Have you ever been in or are you currently in a harmful physical or emotional relationship or is someone making you feel afraid or unsafe? 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.] Read Routine (OP Routine) 06/07/2023 10:49 AM BILL PEDDLER Mastodynia from Last 3 Months or Most [...] was last reviewed 2021. Testing performed by: [address] [address] Blood 06/21/2024 12:3 0 PM CDT 06/21/2024 12:31 PM CDT Yony Iverson DO LAB BLOOD ORDERABLES Final R esult RHINA [address] [facility] [place] [address] * Differential, auto (06/21/2024 12:30 PM CDT) Neutrophil abs 5.9 1.5 - 6.5 K/cumm Comment:Testing performed by : [address] [address] Imm gran abs 0.1 0.0 - 0.1 K/cumm RHINA Comment:Testing performed by : [address] [address] Lymphocyte abs 1.0 0.8 - 3.3 K/cumm RHINA Comment:Testing performed by : [address] [address] Monocyte abs 0.5 0.2 - 0.8 K/cumm RHINA Comment:Testing performed by : [address] [address] Eosinophil abs 0.2 0.0 - 0.5 K/cumm RHINA Comment:Testing performed by : [address] [address] Basophil abs 0.0 0.0 - 0.1 K/cumm RHINA Comment:Testing performed by : [address] [address] Neutrophil pct 76.3 % [facility] Comment: Interpretive Data Percent cell count reference ranges are not reported, since discordance with absolute values may lead to misinterpretation of CBC data. Current Interpretive Data was last revised on 2017. Testing performed by: [address] [address] Imm gran pct 0.8 % [facility] Comment: Interpretive Data Percent cell count reference ranges are not reported, since discordance with absolute values may lead to misinterpretation of CBC data. Current Interpretive Data was last revised on 2017. Testing performed by: [address] [address] Lymphocyte pct 13.2 % [facility] Comment: Interpretive Data Percent cell count reference ranges are not reported, since discordance with absolute values may lead to misinterpretation of CBC data. Current Interpretive Data was last revised on 2017. Testing performed by: [address] [address] Monocyte pct 6.6 % [facility] Comment: Interpretive Data Percent cell count reference ranges are not reported, since discordance with absolute values may lead to misinterpretation of CBC data. Current Interpretive Data was last revised on 2017. Testing performed by: [address] [address] Eosinophil pct 2.8 % [facility] Comment: Interpretive Data Percent cell count reference ranges are not reported, since discordance with absolute values may lead to misinterpretation of CBC data. Current Interpretive Data was last revised on 2017. Testing performed by: [address] [address] Basophil pct 0.3 % [facility] Comment: Interpretive Data Percent cell count reference ranges are not reported, since discordance with absolute values may lead to misinterpretation of CBC data. Current Interpretive Data was last revised on 2017. Testing performed by: [address] [address] Blood 06/21/2024 12:3 0 PM CDT 06/21/2024 12:31 PM CDT Yony Iverson DO LAB BLOOD ORDERABLES Final R esult [facility] [address] [facility] Department [place] [address] * CBC with auto differential (06/21/2024 12:30 PM CDT) WBC 7.7 3.8 - 9.9 K/cumm Comment:Testing performed by : [address] [address] Hgb 12.7 11.9 - 15.5 g/dL RHINA Comment:Testing performed by : [address] [address] Hct 39.1 35.6 - 45.5 % [facility] Comment:Testing performed by : [address] [address] Plt 265 150 - 400 K/cumm RHINA Comment:Testing performed by : [address] [address] MPV 9.3 9.1 - 12.3 fL [facility] Comment:Testing performed by : [address] [address] RBC 4.64 3.90 - 5.20 M/cumm RHINA Comment:Testing performed by : [address] [address] MCV 84.3 81.3 - 96.4 fL [facility] Comment:Testing performed by : [address] [address] MCH 27.4 27.1 - 33.3 pg [facility]INA LEOS Comment:Testing performed by : [address] [address] MCHC 32.5 32.3 - 35.7 g/dL RHINA Comment:Testing performed by : [address] [address] RDW CV 13.9 11.1 - 14.9 % [facility]INA LEOS Comment:Testing performed by : [address] [address] RDW SD 42.9 35.7 - 48.1 fL RHINA LEOS Comment:Testing performed by : [address] [address] NRBC abs 0.00 0.00 - 0.01 K/cumm RHINA LEOS Comment:Testing performed by : [address] [address] Blood 06/21/2024 12:3 0 PM CDT 06/21/2024 12:31 PM CDT Yony Iverson DO LAB BLOOD ORDERABLES Final R [facility] Performing Organization Address [facility] Co de Phone Number [address] [place] [place] [address] * Cancer antigen 15-3 (06/21/2024 12:30 PM CDT) CA 15-3 ag 15.8 0.0 - 25.0 units/mL Comment: Interpretive Data The Annmarie CA 15-3 assay procedure was used. Results from different manufacturers or methods may not be comparable. Serial testing should be performed using the same method. Testing performed by: [address] [address] Blood 06/21/2024 12:3 0 PM CDT 06/21/2024 1:36 PM CDT Yony Iverson DO LAB BLOOD ORDERABLES Final R [facility] Performing Organization Address City/[facility] Co de Phone Number [address] [place] [employer] [place] [address] * Comprehensive metabolic panel (06/21/2024 12:30 PM CDT) Sodium 142 135 - 145 mmol/L Comment:Testing performed by : [address] [address] Potassium, pl 4.3 3.3 - 4.9 mmol/L RHINA Comment:Testing performed by : [address] [address] Chloride 107 97 - 110 mmol/L [facility] Comment:Testing performed by : [address], [place]., [address] CO2 25 22 - 32 mmol/L [facility] Comment:Testing performed by : [address], [place]., [address] Anion gap 10 2 - 15 mmol/L [facility] Comment:Testing performed by : [address], [place]., [address] BUN 25 6 - 25 mg/dL [facility] Comment:Testing performed by : [address], [place]., [address] Creatinine 0.80 0.60 - 1.10 mg/dL [facility]INA Comment:Testing performed by : [address] [address] Glucose 88 70 - 199 mg/dL [facility] Comment: Interpretive Data Fasting glucose >/= 126 [...] was last revised 2022. Testing performed by: [address] [address] Calcium 9.9 8.5 - 10.3 mg/dL [facility] Comment:Testing performed by : [address] [address] Bilirubin, total 0.2 0.1 - 1.2 mg/dL [facility] Comment:Testing performed by : [address] [address] Protein, pl 7.4 6.5 - 8.5 g/dL [facility] Comment:Testing performed by : [address] [address] Albumin 4.5 3.5 - 5.0 g/dL [facility] Comment:Testing performed by : [address] [address] Alk phos 104 40 - 130 Units/L [facility] Comment:Testing performed by : [address] [address] ALT 25 7 - 45 Units/L [facility] Comment:Testing performed by : [address] [address] AST 23 10 - 45 Units/L [facility] Comment:Testing performed by : [address] [address] Blood 06/21/2024 12:3 0 PM CDT 06/21/2024 12:31 PM CDT us Yony Iverson DO LAB BLOOD ORDERABLES Final R esult [facility]3 [facility] [place] [address] * (ABNORMAL) Diagnostic Mammogram Bilateral W Loc (06/07/2023 10:49 AM BILL PEDDLER) Anatomical Region Laterality Modality Breast Bilateral Mammography 06/07/2023 12:2 2 PM BILL PEDDLER Narrative 06/07/2023 12:30 PM BILL PEDDLER EXAM DESCRIPTION: US BREAST BILATERAL LIMITED; DIAGNOSTIC [...] Krystal Ho M.D. QX: QX Report ID: [id number] Reading Location: [facility] Pierce Alvarez MD IM MAMMO PROCEDURES Fin al Result from Last 3 Months or Most Recently Relevant to Health Maintenance Insurance [facility] CHOICE PLUS [facility] CHOICE PLUS [facility] CHOICE PLUS Advance Directives For more information, please contact: [phone] * Full Code (Latest Code Status on File) Date Activated Date Inactivated Comments 08/10/2023 1:46 PM 08/13/2023 1:51 PM Care Teams Choir Accompanist Relationship Specialty Start Date End Date Israel Day MD PCP - General 11/19/19 Alhaji Guerrero MD [address] [place] [address] Surgeon Surgery 06/24/23 Celi Rodríguez MD 1418 [facility] [address] [place] [address] Radiation Oncologist Radiation Oncology 06/24/23 Yony Iverson DO 1418 [facility] MEDICAL ONCOLOGY, [facility] [address] [place] [address] Medical Oncologist/Counterintelligence Analyst Hematology and Oncology 09/12/23
--- OUTSIDE RECORDS SUMMARY | 2024-07-24 17:14 | XMS_ITS | Data Portability ---
Author Organization [facility] [employer], Main Office Address [address] [place] [address] Assessment Encounter Date Assessment Date Assessment LastModified by Organization Details LastModified Time 07/19/2022 07/19/2022 will try wegovy no personal or family history of cancer or anything to suggest any in side effects discussed in detail other medical problems have been discussed blood work ordered follow-up in 4 weeks if starts injectable 4 months if not [email or web address] Not available 07/19/2022 14:44:10 Plan of Treatment Reminders Order Date Submit Date Provider Last Modified By Organization Details Last Modified Time Details Appointments None recorded. Lab T3, free, serum or plasma 2022 023 [facility] (Lab), [address] [place], [address], 3 16:11:06 TSH, serum or plasma 2022 023 [facility] (Lab), [address] [place], [address], 3 16:22:07 T4, free, serum 2022 023 [facility] (Lab), [address] [place], [address], 3 16:11:07 lipid panel, serum 2022 023 [facility] (Lab), [address] [place], [address], 3 16:05:50 CBC w/ auto diff 04/10/ 2023 04/10/2 023 [id number] [facility] (Lab), [address] [place], [address], 3 16:05:50 CMP, serum or plasma [address] (Lab), [address] [place], [address], 3 16:05:50 Referral None recorded. Procedures None recorded. Surgeries None recorded. Imaging None recorded. Medication Orders Wegovy 0.25 mg/0.5 mL subcutaneou s pen injector [address]/[id number], [address] [place], [address], 3 16:05:50 Patient TargetsNo targets recorded. Patient InstructionsNo instructions recorded. Reason for Referral None Reported. Results Created Date Observation Date Name Description Value Unit Range Abnormal Flag Note LastModifiedBy Organization Detail LastModifiedTime 07/15/19 22 07/14/2021 TSH thyroid-stim ulating hormone 2.940 uIU/m L 0.465- 4.680 Not Available [facility] (Lab) [address] [place], [address], 07/14/2021 19:12:12 07/15/19 22 07/14/2021 T4 FREE free T4 1.02 NG/dL 0.78-2 .19 Not Available [facility] (Lab) [address] [place], [address], 07/14/2021 18:53:43 07/15/19 22 07/14/2021 T3 FREE free T3 3.0 pg/mL 2.77-5 .27 Not Available [facility] (Lab) [address] [place], [address], 07/14/2021 18:53:38 07/15/19 22 07/14/2021 COMPR EHENS DAYANA METAB OLIC PANEL carbon dioxide 21 mmol/ L 22-30 low Not Available [facility] (Lab) [address] [place], [address], 07/14/2021 18:42:32 07/15/19 22 07/14/2021 COMPR EHENS DAYANA METAB OLIC PANEL sodium 136 mmol/ L 137-14 5 low Not Available [facility] (Lab) [address] [place], [address], 07/14/2021 18:42:32 07/15/19 22 07/14/2021 COMPR EHENS DAYANA METAB OLIC PANEL potassium 4.7 mmol/ L 3.5-5. 1 Not Available [facility] (Lab) [address] [place], [address], 07/14/2021 18:42:32 07/15/19 22 07/14/2021 COMPR EHENS DAYANA METAB OLIC PANEL chloride 104 mmol/ L 98-107 Not Available [facility] (Lab) [address] [place], [address], 07/14/2021 18:42:32 07/15/19 22 07/14/2021 COMPR EHENS DAYANA METAB OLIC PANEL agap 15.7 mmol/ L 14-22 Not Available [facility] (Lab) [address] [place], [address], 07/14/2021 18:42:32 07/15/19 22 07/14/2021 COMPR EHENS DAYANA METAB OLIC PANEL glucose 88 mg/dL 70-99 Not Available [facility] (Lab) [address] [place], [address], 07/14/2021 18:42:32 07/15/19 22 07/14/2021 COMPR EHENS DAYANA METAB OLIC PANEL BUN 20 mg/dL 8-19 high Not Available [facility] (Lab) [address] [place], [address], 07/14/2021 18:42:32 07/15/19 22 07/14/2021 COMPR EHENS DAYANA METAB OLIC PANEL creatinine 0.76 mg/dL 0.66-1 .25 Not Available [facility] (Lab) [address] [place], [address], 07/14/2021 18:42:32 07/15/19 22 07/14/2021 COMPR EHENS DAYANA METAB OLIC PANEL GFR >60 Refer ence Range : [place] ge GFR Healt hy Adult : >60 mL/mi n/1.7 3 m2 Chron ic Kidne y Disea se: 15-60 mL/mi n/1.7 3 m2 Kidne y Failu re: <15/m L/min /1.73 m2 www.n iddk. nih.g ov The MDRD study equat ion has not been valid ated in child margo <18 years of age; pregn ant women ; the elder ly >85 years of age; or in some racia l or ethni c subgr oups, such as Hisjenny nics. Outsi de the valid ated angelo eters , estim ated GFR is less accur ate, requi ring clini gene judgm ent on a case- by-ca se basis . Clini gene inter preta tion for other races and ages must be made by the clini daniela. The MDRD study equat ion has not been valid ated for the evalu ation of serum creat inine relat ed to nutri stefanie l statu s or medic ation usage . For perso ns <18 years of age, a pedia tric GFR calcu lator is avail able on the F websi te: https ://angelica w.juice khan.o rg/pr ofess ional s/kdo qi/gf r_cal culat or Not Available [facility] (Lab) [address] [place], [address], 07/14/2021 18:42:32 07/15/19 22 07/14/2021 COMPR EHENS DAYANA METAB OLIC PANEL alkaline phosphatase 91 U/L 38-126 Not Available [facility] (Lab) [address] [place], [address], 07/14/2021 18:42:32 07/15/19 22 07/14/2021 COMPR EHENS DAYANA METAB OLIC PANEL alanine aminotransfe rase 20 U/L 0-[address] [facility] (Lab) [address] [place], [address], 07/14/2021 18:42:32 07/15/19 22 07/14/2021 COMPR EHENS DAYANA METAB OLIC PANEL aspartate aminotransfe rase 28 U/L 15-[address] [facility] (Lab) [address] [place], [address], 07/14/2021 18:42:32 07/15/19 22 07/14/2021 COMPR EHENS DAYANA METAB OLIC PANEL bilirubin, total 0.40 mg/dL 0.20-1 .30 Not Available [facility] (Lab) [address] [place], [address], 07/14/2021 18:42:32 07/15/19 22 07/14/2021 COMPR EHENS DAYANA METAB OLIC PANEL calcium 10.1 mg/dL 8.4-10 .2 Not Available [facility] (Lab) [address] [place], [address], 07/14/2021 18:42:32 07/15/19 22 07/14/2021 COMPR EHENS DAYANA METAB OLIC PANEL total protein 8.0 g/dL 6.3-8. 2 Not Available [facility] (Lab) [address] [place], [address], 07/14/2021 18:42:32 07/15/19 22 07/14/2021 COMPR EHENS DAYANA METAB OLIC PANEL albumin 4.8 g/dL 3.4-5. 0 Not Available [facility] (Lab) [address] [place], [address], 07/14/2021 18:42:32 07/15/19 22 07/14/2021 COMPR EHENS DAYANA METAB OLIC PANEL globulin 3.2 g/dL 2.6-4. 2 Not Available [facility] (Lab) [address] [place], [address], 07/14/2021 18:42:32 07/15/19 22 07/14/2021 COMPR EHENS DAYANA METAB OLIC PANEL A/G ratio 1.5 ratio 1.0-2. 0 Not Available [facility] (Lab) [address] [place], [address], 07/14/2021 18:42:32 07/15/19 22 07/14/2021 LIPID PANEL cholesterol 183 mg/dL 140-19 9 NIH ETHAN NSUS RECOM MENDA TION FOR RENETTA STERO L: ADULT CHILD LOW RISK: <200 <170 BORDE RLINE : <200- 239 ----- HIGH RISK: >240 >200 Not Available [facility] (Lab) [address] [place], [address], 07/14/2021 18:42:26 07/15/19 22 07/14/2021 LIPID PANEL triglyceride s 93 mg/dL 0-150 NIH ETHAN NSUS REPOR T RECOM MENDA TION FOR TRIGL YCERI COOKIE: ADULT CHILD LOW RISK: <150 ----- BODER LINE: 150-1 99 ----- HIGH RISK: >200 ----- Not Available [facility] (Lab) [address] [place], [address], 07/14/2021 18:42:26 07/15/19 22 07/14/2021 LIPID PANEL HDL cholesterol 71 mg/dL 40- Not Available [facility] (Lab) [address] [place], [address], 07/14/2021 18:42:26 07/15/19 22 07/14/2021 LIPID PANEL LDL cholesterol, calculated 93 mg/dL 0-130 NIH ETHAN NSUS REPOR T RECOM MENDA TIONS FOR LDL: ADULT CHILD LOW RISK <130 <110 (OPTI MAL LDL) <100 ----- SADIADE RLINE : 130-1 59 ----- HIGH RISK: >160 >130 A TRIGL YCERI DE RESUL T >400 INVAL IDATE S THE CALCU LATIO N FOR LDL FRACT IONAT ION - THE LDL RESUL T WILL NOT BE REPOR BLESSING. Not Available [facility] (Lab) [address] [place], [address], 07/14/2021 18:42:26 07/15/19 22 07/14/2021 CBC/C OMPLE TE BLD COUNT W/DIF F hematocrit 42.8 % 35.7-4 5.7 Not Available [facility] (Lab) [address] [place], [address], 07/14/2021 18:16:10 07/15/19 22 07/14/2021 CBC/C OMPLE TE BLD COUNT W/DIF F white blood cells 10.2 x10'3 /uL 4.2-10 .8 Not Available [facility] (Lab) [address] [place], [address], 07/14/2021 18:16:10 07/15/19 22 07/14/2021 CBC/C OMPLE TE BLD COUNT W/DIF F red blood cells 4.88 x10'6 /uL 3.80-5 .20 Not Available [facility] (Lab) [address] [place], [address], 07/14/2021 18:16:10 07/15/19 22 07/14/2021 CBC/C OMPLE TE BLD COUNT W/DIF F hemoglobin 13.8 g/dL 12.0-1 5.6 Not Available [facility] (Lab) [address] [place], [address], 07/14/2021 18:16:10 07/15/19 22 07/14/2021 CBC/C OMPLE TE BLD COUNT W/DIF F mean red cell volume 87.7 fL 82.0-9 9.0 Not Available [facility] (Lab) [address] [place], [address], 07/14/2021 18:16:10 07/15/19 22 07/14/2021 CBC/C OMPLE TE BLD COUNT W/DIF F mean red cell hemoglobin 28.3 pg 27.0-3 3.0 Not Available [facility] (Lab) [address] [place], [address], 07/14/2021 18:16:10 07/15/19 22 07/14/2021 CBC/C OMPLE TE BLD COUNT W/DIF F mean RBC HGB concentratio n 32.2 g/dL 31.0-3 6.0 Not Available [facility] (Lab) [address] [place], [address], 07/14/2021 18:16:10 07/15/19 22 07/14/2021 CBC/C OMPLE TE BLD COUNT W/DIF F red cell distribution width 14.2 % 11.8-1 5.5 Not Available [facility] (Lab) [address] [place], [address], 07/14/2021 18:16:10 07/15/19 22 07/14/2021 CBC/C OMPLE TE BLD COUNT W/DIF F platelets 248 x10'3 /uL 150-40 0 Not Available [facility] (Lab) [address] [place], [address], 07/14/2021 18:16:10 07/15/19 22 07/14/2021 CBC/C OMPLE TE BLD COUNT W/DIF F mean platelet volume 10.8 fL 9.0-12 .4 Not Available [facility] (Lab) [address] [place], [address], 07/14/2021 18:16:10 07/15/19 22 07/14/2021 CBC/C OMPLE TE BLD COUNT W/DIF F neutrophils 72.8 % 39.0-7 2.0 high Not Available [facility] (Lab) [address] [place], [address], 07/14/2021 18:16:10 07/15/19 22 07/14/2021 CBC/C OMPLE TE BLD COUNT W/DIF F lymphocytes 17.1 % 16.0-4 7.0 Not Available [facility] (Lab) [address] [place], [address], 07/14/2021 18:16:10 07/15/19 22 07/14/2021 CBC/C OMPLE TE BLD COUNT W/DIF F monocytes 7.8 % 5.0-12 .0 Not Available [facility] (Lab) [address] [place], [address], 07/14/2021 18:16:10 07/15/19 22 07/14/2021 CBC/C OMPLE TE BLD COUNT W/DIF F eosinophils 2.2 % 1.0-7. 0 Not Available [facility] (Lab) [address] [place], [address], 07/14/2021 18:16:10 07/15/19 22 07/14/2021 CBC/C OMPLE TE BLD COUNT W/DIF F basophils 0.1 % 0.0-2. 0 Not Available [facility] (Lab) [address] [place], [address], 07/14/2021 18:16:10 07/15/19 22 07/14/2021 CBC/C OMPLE TE BLD COUNT W/DIF F neutrophils, absolute count 7.45 x10'3 /uL 1.5-8. 0 Not Available [facility] (Lab) [address] [place], [address], 07/14/2021 18:16:10 07/15/19 22 07/14/2021 CBC/C OMPLE TE BLD COUNT W/DIF F basophils, absolute count 0.01 x10'3 /uL 0.01-0 .08 Not Available [facility] (Lab) [address] [place], [address], 07/14/2021 18:16:10 07/15/19 22 07/14/2021 CBC/C OMPLE TE BLD COUNT W/DIF F lymphocytes, absolute count 1.75 x10'3 /uL 1.07-3 .43 Not Available [facility] (Lab) [address] [place], [address], 07/14/2021 18:16:10 07/15/19 22 07/14/2021 CBC/C OMPLE TE BLD COUNT W/DIF F monocytes, absolute count 0.80 x10'3 /uL 0.29-0 .99 Not Available [facility] (Lab) [address] [place], [address], 07/14/2021 18:16:10 07/15/19 22 07/14/2021 CBC/C OMPLE TE BLD COUNT W/DIF F eosinophils, absolute count 0.22 x10'3 /uL 0.02-0 .53 Not Available [facility] (Lab) [address] [place], [address], 07/14/2021 18:16:10 07/20/19 23 07/19/2022 CBC/C OMPLE TE BLD COUNT W/DIF F white blood cells 6.8 x10'3 /uL 4.2-10 .8 Not Available [facility] (Lab) [address] [place], [address], 07/19/2022 15:35:59 07/20/19 23 07/19/2022 CBC/C OMPLE TE BLD COUNT W/DIF F red blood cells 4.79 x10'6 /uL 3.80-5 .20 Not Available [facility] (Lab) [address] [place], [address], 07/19/2022 15:35:59 07/20/19 23 07/19/2022 CBC/C OMPLE TE BLD COUNT W/DIF F hemoglobin 13.4 g/dL 12.0-1 5.6 Not Available [facility] (Lab) [address] [place], [address], 07/19/2022 15:35:59 07/20/19 23 07/19/2022 CBC/C OMPLE TE BLD COUNT W/DIF F hematocrit 41.9 % 35.7-4 5.7 Not Available [facility] (Lab) [address] [place], [address], 07/19/2022 15:35:59 07/20/19 23 07/19/2022 CBC/C OMPLE TE BLD COUNT W/DIF F mean red cell volume 87.5 fL 82.0-9 9.0 Not Available [facility] (Lab) [address] [place], [address], 07/19/2022 15:35:59 07/20/19 23 07/19/2022 CBC/C OMPLE TE BLD COUNT W/DIF F mean red cell hemoglobin 28.0 pg 27.0-3 3.0 Not Available [facility] (Lab) [address] [place], [address], 07/19/2022 15:35:59 07/20/19 23 07/19/2022 CBC/C OMPLE TE BLD COUNT W/DIF F mean RBC HGB concentratio n 32.0 g/dL 31.0-3 6.0 Not Available [facility] (Lab) [address] [place], [address], 07/19/2022 15:35:59 07/20/19 23 07/19/2022 CBC/C OMPLE TE BLD COUNT W/DIF F red cell distribution width 13.8 % 11.8-1 5.5 Not Available [facility] (Lab) [address] [place], [address], 07/19/2022 15:35:59 07/20/19 23 07/19/2022 CBC/C OMPLE TE BLD COUNT W/DIF F platelets 266 x10'3 /uL 150-40 0 Not Available [facility] (Lab) [address] [place], [address], 07/19/2022 15:35:59 07/20/19 23 07/19/2022 CBC/C OMPLE TE BLD COUNT W/DIF F mean platelet volume 10.5 fL 9.0-12 .4 Not Available [facility] (Lab) [address] [place], [address], 07/19/2022 15:35:59 07/20/19 23 07/19/2022 CBC/C OMPLE TE BLD COUNT W/DIF F neutrophils 70.1 % 39.0-7 2.0 Not Available [facility] (Lab) [address] [place], [address], 07/19/2022 15:35:59 07/20/19 23 07/19/2022 CBC/C OMPLE TE BLD COUNT W/DIF F lymphocytes 20.7 % 16.0-4 7.0 Not Available [facility] (Lab) [address] [place], [address], 07/19/2022 15:35:59 07/20/19 23 07/19/2022 CBC/C OMPLE TE BLD COUNT W/DIF F monocytes 6.5 % 5.0-12 .0 Not Available [facility] (Lab) [address] [place], [address], 07/19/2022 15:35:59 07/20/19 23 07/19/2022 CBC/C OMPLE TE BLD COUNT W/DIF F eosinophils 2.3 % 1.0-7. 0 Not Available [facility] (Lab) [address] [place], [address], 07/19/2022 15:35:59 07/20/19 23 07/19/2022 CBC/C OMPLE TE BLD COUNT W/DIF F basophils 0.3 % 0.0-2. 0 Not Available [facility] (Lab) [address] [place], [address], 07/19/2022 15:35:59 07/20/19 23 07/19/2022 CBC/C OMPLE TE BLD COUNT W/DIF F immature granulocytes 0.1 % 0.00-0 .50 Not Available [facility] (Lab) [address] [place], [address], 07/19/2022 15:35:59 07/20/19 23 07/19/2022 CBC/C OMPLE TE BLD COUNT W/DIF F neutrophils, absolute count 4.78 x10'3 /uL 1.5-8. 0 Not Available [facility] (Lab) [address] [place], [address], 07/19/2022 15:35:59 07/20/19 23 07/19/2022 CBC/C OMPLE TE BLD COUNT W/DIF F lymphocytes, absolute count 1.41 x10'3 /uL 1.07-3 .43 Not Available [facility] (Lab) [address] [place], [address], 07/19/2022 15:35:59 07/20/19 23 07/19/2022 CBC/C OMPLE TE BLD COUNT W/DIF F monocytes, absolute count 0.44 x10'3 /uL 0.29-0 .99 Not Available [facility] (Lab) [address] [place], [address], 07/19/2022 15:35:59 07/20/19 23 07/19/2022 CBC/C OMPLE TE BLD COUNT W/DIF F eosinophils, absolute count 0.16 x10'3 /uL 0.02-0 .53 Not Available [facility] (Lab) [address] [place], [address], 07/19/2022 15:35:59 07/20/19 23 07/19/2022 CBC/C OMPLE TE BLD COUNT W/DIF F basophils, absolute count 0.02 x10'3 /uL 0.01-0 .08 Not Available [facility] (Lab) [address] [place], [address], 07/19/2022 15:35:59 07/20/19 23 07/19/2022 CBC/C OMPLE TE BLD COUNT W/DIF F immature granulocytes ,absolute 0.01 x10'3 /uL 0.00-0 .05 Not Available [facility] (Lab) [address] [place], [address], 07/19/2022 15:35:59 07/20/19 23 07/19/2022 CBC/C OMPLE TE BLD COUNT W/DIF F nucleated red blood cells 0.0 % -[address] [facility] (Lab) [address] [place], [address], 07/19/2022 15:35:59 07/20/19 23 07/19/2022 CBC/C OMPLE TE BLD COUNT W/DIF F NRBC# 0.00 x10'3 /uL Not Available [facility] (Lab) [address] [place], [address], 07/19/2022 15:35:59 07/20/19 23 07/19/2022 LIPID PANEL cholesterol 165 mg/dL 140-19 9 NIH ETHAN NSUS RECOM MENDA TION FOR RENETTA STERO L: ADULT CHILD LOW RISK: <200 <170 BORDE RLINE : <200- 239 ----- HIGH RISK: >240 >200 Not Available [facility] (Lab) [address] [place], [address], 07/19/2022 15:55:18 07/20/19 23 07/19/2022 LIPID PANEL triglyceride s 127 mg/dL 0-150 NIH ETHAN NSUS REPOR T RECOM MENDA TION FOR TRIGL YCERI COOKIE: ADULT CHILD LOW RISK: <150 ----- BODER LINE: 150-1 99 ----- HIGH RISK: >200 ----- Not Available [facility] (Lab) [address] [place], [address], 07/19/2022 15:55:18 07/20/19 23 07/19/2022 LIPID PANEL HDL cholesterol 62 mg/dL 40- Not Available [facility] (Lab) [address] [place], [address], 07/19/2022 15:55:18 07/20/19 23 07/19/2022 LIPID PANEL LDL cholesterol, calculated 78 mg/dL 0-130 NIH ETHAN NSUS REPOR T RECOM MENDA TIONS FOR LDL: ADULT CHILD LOW RISK <130 <110 (OPTI MAL LDL) <100 ----- BORDE RLINE : 130-1 59 ----- HIGH RISK: >160 >130 A TRIGL YCERI DE RESUL T >400 INVAL IDATE S THE CALCU LATIO N FOR LDL FRACT IONAT ION - THE LDL RESUL T WILL NOT BE REPOR BLESSING. Not Available [facility] (Lab) [address] [place], [address], 07/19/2022 15:55:18 07/20/1907/19/2022 COMPR EHENS DAYANA METAB OLIC PANEL sodium 139 mmol/ L 137-14 5 Not Available [facility] (Lab) [address] [place], [address], 07/19/2022 15:55:22 07/20/19 23 07/19/2022 COMPR EHENS DAYANA METAB OLIC PANEL potassium 4.0 mmol/ L 3.5-5. 1 Not Available [facility] (Lab) [address] [place], [address], 07/19/2022 15:55:22 07/20/19 23 07/19/2022 COMPR EHENS DAYANA METAB OLIC PANEL chloride 105 mmol/ L 98-107 Not Available [facility] (Lab) [address] [place], [address], 07/19/2022 15:55:22 07/20/19 23 07/19/2022 COMPR EHENS DAYANA METAB OLIC PANEL carbon dioxide 27 mmol/ L 22-30 Not Available [facility] (Lab) [address] [place], [address], 07/19/2022 15:55:22 07/20/19 23 07/19/2022 COMPR EHENS DAYANA METAB OLIC PANEL anion gap 11.0 mmol/ L 14-22 low Not Available [facility] (Lab) [address] [place], [address], 07/19/2022 15:55:22 07/20/19 23 07/19/2022 COMPR EHENS DAYANA METAB OLIC PANEL glucose 85 mg/dL 70-99 Not Available [facility] (Lab) [address] [place], [address], 07/19/2022 15:55:22 07/20/19 23 07/19/2022 COMPR EHENS DAYANA METAB OLIC PANEL BUN 15 mg/dL 8-19 Not Available [facility] (Lab) [address] [place], [address], 07/19/2022 15:55:22 07/20/19 23 07/19/2022 COMPR EHENS DAYANA METAB OLIC PANEL creatinine 1.09 mg/dL 0.66-1 .25 Not Available [facility] (Lab) [address] [place], [address], 07/19/2022 15:55:22 07/20/19 23 07/19/2022 COMPR EHENS DAYANA METAB OLIC PANEL GFR 55 Refer ence Range : [place] ge GFR Healt hy Adult : >60 mL/mi n/1.7 3 m2 Chron ic Kidne y Disea se: 15-60 mL/mi n/1.7 3 m2 Kidne y Failu re: <15/m L/min /1.73 m2 www.n iddk. nih.g ov The MDRD study equat ion has not been valid ated in child margo <18 years of age; pregn ant women ; the elder ly >85 years of age; or in some racia l or ethni c subgr oups, such as Hispa nics. Outsi de the valid ated angelo eters , estim ated GFR is less accur ate, requi ring clini gene judgm ent on a case- by-ca se basis . Clini gene inter preta tion for other races and ages must be made by the clini daniela. The MDRD study equat ion has not been valid ated for the evalu ation of serum creat inine relat ed to nutri stefanie l statu s or medic ation usage . For perso ns <18 years of age, a pedia tric GFR calcu lator is avail able on the [facility] websi te: https ://angelica jones.juice khan.o rg/pr ofess ional s/kdo qi/gf r_cal culat or Not Available [facility] (Lab) [address] [place], [address], 07/19/2022 15:55:22 07/20/19 23 07/19/2022 COMPR EHENS DAYANA METAB OLIC PANEL alkaline phosphatase 74 U/L 38-126 Not Available [facility] (Lab) [address] [place], [address], 07/19/2022 15:55:22 07/20/19 23 07/19/2022 COMPR EHENS DAYANA METAB OLIC PANEL alanine aminotransfe rase 19 U/L 0-[address] [facility] (Lab) [address] [place], [address], 07/19/2022 15:55:22 07/20/19 23 07/19/2022 COMPR EHENS DAYANA METAB OLIC PANEL aspartate aminotransfe rase 24 U/L 15-[address] [facility] (Lab) [address] [place], [address], 07/19/2022 15:55:22 07/20/19 23 07/19/2022 COMPR EHENS DAYANA METAB OLIC PANEL bilirubin, total 0.50 mg/dL 0.20-1 .30 Not Available [facility] (Lab) [address] [place], [address], 07/19/2022 15:55:22 07/20/19 23 07/19/2022 COMPR EHENS DAYANA METAB OLIC PANEL calcium 9.8 mg/dL 8.4-10 .2 Not Available [facility] (Lab) [address] [place], [address], 07/19/2022 15:55:22 07/20/19 23 07/19/2022 COMPR EHENS DAYANA METAB OLIC PANEL total protein 7.6 g/dL 6.3-8. 2 Not Available [facility] (Lab) [address] [place], [address], 07/19/2022 15:55:22 07/20/19 23 07/19/2022 COMPR EHENS DAYANA METAB OLIC PANEL albumin 4.6 g/dL 3.4-5. 0 Not Available [facility] (Lab) [address] [place], [address], 07/19/2022 15:55:22 07/20/19 23 07/19/2022 COMPR EHENS DAYANA METAB OLIC PANEL globulin 3.0 g/dL 2.6-4. 2 Not Available [facility] (Lab) [address] [place], [address], 07/19/2022 15:55:22 07/20/19 23 07/19/2022 COMPR EHENS DAYANA METAB OLIC PANEL A/G ratio 1.5 ratio 1.0-2. 0 Not Available [facility] (Lab) [address] [place], [address], 07/19/2022 15:55:22 07/20/19 23 07/19/2022 T3 FREE free T3 2.6 pg/mL 2.77-5 .27 low Not Available [facility] (Lab) [address] [place], [address], 07/19/2022 16:11:06 07/20/19 23 07/19/2022 T4 FREE free T4 1.14 NG/dL 0.78-2 .19 Not Available [facility] (Lab) [address] [place], [address], 07/19/2022 16:11:07 07/20/19 23 07/19/2022 TSH thyroid-stim ulating hormone 3.480 uIU/m L 0.465- 4.680 Not Available [facility] (Lab) [address] [place], [address], 07/19/2022 16:22:07 01/27/20 23 01/26/2023 CBC/C OMPLE TE BLD COUNT W/DIF F white blood cells 9.2 x10'3 /uL 4.2-10 .8 Not Available [facility] (Lab) [address] [place], [address], 01/26/2023 18:01:43 01/27/20 23 01/26/2023 CBC/C OMPLE TE BLD COUNT W/DIF F red blood cells 4.22 x10'6 /uL 3.80-5 .20 Not Available [facility] (Lab) [address] [place], [address], 01/26/2023 18:01:43 01/27/20 23 01/26/2023 CBC/C OMPLE TE BLD COUNT W/DIF F hemoglobin 12.2 g/dL 12.0-1 5.6 Not Available [facility] (Lab) [address] [place], [address], 01/26/2023 18:01:43 01/27/2001/26/2023 CBC/C OMPLE TE BLD COUNT W/DIF F hematocrit 37.5 % 35.7-4 5.7 Not Available [facility] (Lab) [address] [place], [address], 01/26/2023 18:01:43 01/27/2001/26/2023 CBC/C OMPLE TE BLD COUNT W/DIF F mean red cell volume 88.9 fL 82.0-9 9.0 Not Available [facility] (Lab) [address] [place], [address], 01/26/2023 18:01:43 01/27/2001/26/2023 CBC/C OMPLE TE BLD COUNT W/DIF F mean red cell hemoglobin 28.9 pg 27.0-3 3.0 Not Available [facility] (Lab) [address] [place], [address], 01/26/2023 18:01:43 01/27/2001/26/2023 CBC/C OMPLE TE BLD COUNT W/DIF F mean RBC HGB concentratio n 32.5 g/dL 31.0-3 6.0 Not Available [facility] (Lab) [address] [place], [address], 01/26/2023 18:01:43 01/27/2001/26/2023 CBC/C OMPLE TE BLD COUNT W/DIF F red cell distribution width 13.8 % 11.8-1 5.5 Not Available [facility] (Lab) [address] [place], [address], 01/26/2023 18:01:43 01/27/2001/26/2023 CBC/C OMPLE TE BLD COUNT W/DIF F platelets 290 x10'3 /uL 150-40 0 Not Available [facility] (Lab) [address] [place], [address], 01/26/2023 18:01:43 01/27/2001/26/2023 CBC/C OMPLE TE BLD COUNT W/DIF F mean platelet volume 10.1 fL 9.0-12 .4 Not Available [facility] (Lab) [address] [place], [address], 01/26/2023 18:01:43 01/27/2001/26/2023 CBC/C OMPLE TE BLD COUNT W/DIF F neutrophils 67.2 % 39.0-7 2.0 Not Available [facility] (Lab) [address] [place], [address], 01/26/2023 18:01:43 01/27/2001/26/2023 CBC/C OMPLE TE BLD COUNT W/DIF F lymphocytes 22.0 % 16.0-4 7.0 Not Available [facility] (Lab) [address] [place], [address], 01/26/2023 18:01:43 01/27/2001/26/2023 CBC/C OMPLE TE BLD COUNT W/DIF F monocytes 7.3 % 5.0-12 .0 Not Available [facility] (Lab) [address] [place], [address], 01/26/2023 18:01:43 01/27/2001/26/2023 CBC/C OMPLE TE BLD COUNT W/DIF F eosinophils 2.9 % 1.0-7. 0 Not Available [facility] (Lab) [address] [facility] [place], [address], 01/26/2023 18:01:43 01/27/2001/26/2023 CBC/C OMPLE TE BLD COUNT W/DIF F basophils 0.3 % 0.0-2. 0 Not Available [facility] (Lab) [address] [place], [address], 01/26/2023 18:01:43 01/27/2001/26/2023 CBC/C OMPLE TE BLD COUNT W/DIF F immature granulocytes 0.3 % 0.00-0 .50 Not Available [facility] (Lab) [address] [place], [address], 01/26/2023 18:01:43 01/27/2001/26/2023 CBC/C OMPLE TE BLD COUNT W/DIF F neutrophils, absolute count 6.19 x10'3 /uL 1.5-8. 0 Not Available [facility] (Lab) [address] [place], [address], 01/26/2023 18:01:43 01/27/2001/26/2023 CBC/C OMPLE TE BLD COUNT W/DIF F lymphocytes, absolute count 2.03 x10'3 /uL 1.07-3 .43 Not Available [facility] (Lab) [address] [place], [address], 01/26/2023 18:01:43 01/27/2001/26/2023 CBC/C OMPLE TE BLD COUNT W/DIF F monocytes, absolute count 0.67 x10'3 /uL 0.29-0 .99 Not Available [facility] (Lab) [address] [place], [address], 01/26/2023 18:01:43 01/27/2001/26/2023 CBC/C OMPLE TE BLD COUNT W/DIF F eosinophils, absolute count 0.27 x10'3 /uL 0.02-0 .53 Not Available [facility] (Lab) [address] [place], [address], 01/26/2023 18:01:43 01/27/2001/26/2023 CBC/C OMPLE TE BLD COUNT W/DIF F basophils, absolute count 0.03 x10'3 /uL 0.01-0 .08 Not Available [facility] (Lab) [address] [place], [address], 01/26/2023 18:01:43 01/27/2001/26/2023 CBC/C OMPLE TE BLD COUNT W/DIF F immature granulocytes ,absolute 0.03 x10'3 /uL 0.00-0 .05 Not Available [facility] (Lab) [address] [place], [address], 01/26/2023 18:01:43 01/27/2001/26/2023 CBC/C OMPLE TE BLD COUNT W/DIF F nucleated red blood cells 0.0 % -[address] [facility] (Lab) [address] [place], [address], 01/26/2023 18:01:43 01/27/20 23 01/26/2023 CBC/C OMPLE TE BLD COUNT W/DIF F NRBC# 0.00 x10'3 /uL Not Available [facility] (Lab) [address] [place], [address], 01/26/2023 18:01:43 01/27/2001/26/2023 LIPID PANEL cholesterol 155 mg/dL 140-19 9 NIH ETHAN NSUS RECOM MENDA TION FOR RENETTA STERO L: ADULT CHILD LOW RISK: <200 <170 BORDE RLINE : <200- 239 ----- HIGH RISK: >240 >200 Not Available [facility] (Lab) [address] [place], [address], 01/26/2023 18:22:47 01/27/2001/26/2023 LIPID PANEL triglyceride s 123 mg/dL 0-150 NIH ETHAN NSUS REPOR T RECOM MENDA TION FOR TRIGL YCERI COOKIE: ADULT CHILD LOW RISK: <150 ----- BODER LINE: 150-1 99 ----- HIGH RISK: >200 ----- Not Available [facility] (Lab) [address] [place], [address], 01/26/2023 18:22:47 01/27/2001/26/2023 LIPID PANEL HDL cholesterol 52 mg/dL 40- Not Available [facility] (Lab) [address] [place], [address], 01/26/2023 18:22:47 01/27/2001/26/2023 LIPID PANEL LDL cholesterol, calculated 78 mg/dL 0-130 NIH ETHAN NSUS REPOR T RECOM MENDA TIONS FOR LDL: ADULT CHILD LOW RISK <130 <110 (OPTI MAL LDL) <100 ----- BORDE RLINE : 130-1 59 ----- HIGH RISK: >160 >130 A TRIGL YCERI DE RESUL T >400 INVAL IDATE S THE CALCU LATIO N FOR LDL FRACT IONAT ION - THE LDL RESUL T WILL NOT BE REPOR BLESSING. Not Available [facility] (Lab) [address] [place], [address], 01/26/2023 18:22:47 01/27/2001/26/2023 COMPR EHENS DAYANA METAB OLIC PANEL sodium 138 mmol/ L 137-14 5 Not Available [facility] (Lab) [address] [place], [address], 01/26/2023 18:22:53 01/27/2001/26/2023 COMPR EHENS DAYANA METAB OLIC PANEL potassium 4.1 mmol/ L 3.5-5. 1 Not Available [facility] (Lab) [address] [place], [address], 01/26/2023 18:22:53 01/27/2001/26/2023 COMPR EHENS DAYANA METAB OLIC PANEL chloride 103 mmol/ L 98-107 Not Available [facility] (Lab) [address] [place], [address], 01/26/2023 18:22:53 01/27/2001/26/2023 COMPR EHENS DAYANA METAB OLIC PANEL carbon dioxide 27 mmol/ L 22-30 Not Available [facility] (Lab) [address] [place], [address], 01/26/2023 18:22:53 01/27/2001/26/2023 COMPR EHENS DAYANA METAB OLIC PANEL anion gap 12.1 mmol/ L 14-22 low Not Available [facility] (Lab) [address] [place], [address], 01/26/2023 18:22:53 01/27/2001/26/2023 COMPR EHENS DAYANA METAB OLIC PANEL glucose 87 mg/dL 70-99 Not Available [facility] (Lab) [address] [place], [address], 01/26/2023 18:22:53 01/27/2001/26/2023 COMPR EHENS DAYANA METAB OLIC PANEL BUN 15 mg/dL 8-19 Not Available [facility] (Lab) [address] [place], [address], 01/26/2023 18:22:53 01/27/2001/26/2023 COMPR EHENS DAYANA METAB OLIC PANEL creatinine 0.86 mg/dL 0.66-1 .25 Not Available [facility] (Lab) [address] [place], [address], 01/26/2023 18:22:53 01/27/2001/26/2023 COMPR EHENS DAYANA METAB OLIC PANEL GFR >60 Refer ence Range : [place] ge GFR Healt hy Adult : >60 mL/mi n/1.7 3 m2 Chron ic Kidne y Disea se: 15-60 mL/mi n/1.7 3 m2 Kidne y Failu re: <15/m L/min /1.73 m2 www.n iddk. nih.g ov The MDRD study equat ion has not been valid ated in child margo <18 years of age; pregn ant women ; the elder ly >85 years of age; or in some racia l or ethni c subgr oups, such as Hispa nics. Outsi de the valid ated angelo eters , estim ated GFR is less accur ate, requi ring clini gene judgm ent on a case- by-ca se basis . Clini gene inter preta tion for other races and ages must be made by the clini daniela. The MDRD study equat ion has not been valid ated for the evalu ation of serum creat inine relat ed to nutri stefanie l statu s or medic ation usage . For perso ns <18 years of age, a pedia tric GFR calcu lator is avail able on the [facility] websi te: https ://angelica jones.juice khan.o rg/pr silvaess ional s/kdo qi/gf r_cal culat or Not Available [facility] (Lab) [address] [place], [address], 01/26/2023 18:22:53 01/27/2001/26/2023 COMPR EHENS DAYANA METAB OLIC PANEL alkaline phosphatase 76 U/L 38-126 Not Available [facility] (Lab) [address] [place], [address], 01/26/2023 18:22:53 01/27/2001/26/2023 COMPR EHENS DAYANA METAB OLIC PANEL alanine aminotransfe rase 15 U/L 0-[address] [facility] (Lab) [address] [place], [address], 01/26/2023 18:22:53 01/27/2001/26/2023 COMPR EHENS DAYANA METAB OLIC PANEL aspartate aminotransfe rase 20 U/L 15-[address] [facility] (Lab) [address] [facility] [place], [address], 01/26/2023 18:22:53 01/27/2001/26/2023 COMPR EHENS DAYANA METAB OLIC PANEL bilirubin, total 0.30 mg/dL 0.20-1 .30 Not Available [facility] (Lab) [address] [place], [address], 01/26/2023 18:22:53 01/27/2001/26/2023 COMPR EHENS DAYANA METAB OLIC PANEL calcium 9.6 mg/dL 8.4-10 .2 Not Available [facility] (Lab) [address] [place], [address], 01/26/2023 18:22:53 01/27/2001/26/2023 COMPR EHENS DAYANA METAB OLIC PANEL total protein 7.1 g/dL 6.3-8. 2 Not Available [facility] (Lab) [address] [place], [address], 01/26/2023 18:22:53 01/27/2001/26/2023 COMPR EHENS DAYANA METAB OLIC PANEL albumin 4.2 g/dL 3.4-5. 0 Not Available [facility] (Lab) [address] [place], [address], 01/26/2023 18:22:53 01/27/2001/26/2023 COMPR EHENS DAYANA METAB OLIC PANEL globulin 2.9 g/dL 2.6-4. 2 Not Available [facility] (Lab) [address] [place], [address], 01/26/2023 18:22:53 10/18/20 23 01/26/2023 COMPR EHENS DAYANA METAB OLIC PANEL A/G ratio 1.4 ratio 1.0-2. 0 Not Available [facility] (Lab) [address] [place], [address], 01/26/2023 18:22:53 01/27/20 23 01/26/2023 T4 FREE free T4 1.07 NG/dL 0.78-2 .19 Not Available [facility] (Lab) [address] [place], [address], 01/26/2023 20:46:11 01/27/20 23 01/26/2023 TSH thyroid-stim ulating hormone 2.070 uIU/m L 0.465- 4.680 Not Available [facility] (Lab) [address] [place], [address], 01/26/2023 20:46:13 01/27/20 23 01/26/2023 T3 FREE free T3 3.4 pg/mL 2.77-5 .27 Not Available [facility] (Lab) [address] [place], [address], 01/26/2023 20:46:17 Result Notes None recorded. Problems Name Problem SNOMED Code Status Onset Date Resolution Date Notes Provider Name and Address Organization Details Recorded Time Otalgia 80552378 Completed Not Available [facility] 3 02:51:10 Abnormal weight gain 460502119 Active Not Available [facility] 3 06:31:01 Anxiety disorder 865671072 Active Not Available [facility] 3 06:31:01 Headache 42756871 Active Not Available [facility] 3 06:31:01 Vertigo 790471012 Active Not Available [facility] 3 06:31:01 Pharyngiti s 654098351 Completed Not Available [facility] 3 02:51:11 Hypothyroi dism 19715098 Active 2020 Not Available [facility] 3 06:31:01 Perennial allergic rhinitis 994208522 Completed Not Available [facility] 3 02:51:11 Laryngitis 49772826 Completed Not Available [facility] 3 02:51:11 Anxiety 73806667 Active Not Available [facility] 3 06:31:01 Upper respirator y infection 32392706 Completed Not Available [facility] 3 02:51:11 Hyperlipid emia 20349781 Active Not Available [facility] 3 06:31:01 Premenstru al dysphoric disorder 646430 Active Not Available [facility] 3 06:31:01 Rhinitis 27235987 Completed Not Available [facility] 3 02:51:11 Fatigue 16889034 Active Not Available [facility] 3 06:31:01 Overweight 680292141 Active 2022 Not Available [facility] 3 06:31:01 Acute sinusitis 53462528 Active 2022 Not Available [facility] 3 06:31:01 Problem Notes None recorded. Procedures Surgical History Date Name Laterality Status Provider Name and Address Organization Details Recorded Time 1 Most Recent Mammogram completed Not Available [facility] 06/09/2022 02:44:50 0 Date of Last Pap Smear completed Not Available [facility] 06/09/2022 02:44:50 Imaging Results None recorded. Procedure Notes None recorded. Medical Equipment None Reported. Allergies Allergen ID Allergen Name Allergen Category Reaction Reaction Severity Criticality Documentation Date Start Date Code Code System Note Provider Name and Address Organization Details Recorded Time 4560 Substance with sulfonami de structure and antibacte rial mechanism of action (substanc e) medicatio n rash Not available Not available 06/09/2022 88743 8003 SNOMED Not Available [facility] 3 02:59:02 4561 Product containin g penicilli n (product) medicatio n anaphylax is Not available Not available 06/09/2022 97667 8001 SNOMED Not Available [facility] 3 02:59:03 4562 Macrobid medicatio n rash Not available Not available 06/09/2022 23665 1 RxNorm Not Available [facility] 3 02:59:03 Medications Name Sig Start Date Stop Date Status Note LastModified by Organization Details LastModified Time Singulair 10 mg tablet Take 1 tablet every day by oral route. 05/08 completed Not Available Not Available Not Available cetirizin e 10 mg tablet Take 1 tablet every day by oral route as needed. 2020 active AllerZyr Brand Not Available Not Available Not Available atorvasta tin 10 mg tablet TAKE 1 TABLET BY MOUTH EVERY DAY 2022 active Not Available Not Available Not Avai lable azithromy lei 250 mg tablet TK 2 TS PO TODAY THEN 1 T D FOR 4 MORE DAYS 07/16 completed Not Available Not Available Not Available ibuprofen 800 mg tablet 01/06 completed Not Available Not Available Not Available fluconazo le 150 mg tablet Take 1 tablet every day by oral route for 1 day. 12/07 completed Not Available Not Available Not Available hydrocodo ne 5 mg-acetam inophen 325 mg tablet 01/06 completed Not Available Not Available Not Available meloxicam 15 mg tablet Take 1 tablet every day by oral route. 05/14 completed Not Available Not Available Not Available prednison e 20 mg tablet TK 2 TS PO QD FOR 7 DAYS active Not Available Not Available No t Available sumatript an 50 mg tablet TAKE 1 TABLET BY MOUTH AT ONSET OF HEADACHE . MAY REPEAT IN 2 HOURS, ONLY 2 PILLS IN 12 HOUR SPAN active Not Available Not Available No t Available phentermi ne 37.5 mg tablet TK 1 T PO 2 H AFTER IVIS active Not Available Not Available No t Available ciproflox acin 250 mg tablet TAKE 1 TABLET BY MOUTH TWICE DAILY FOR 7 DAYS 09/22 completed Not Available Not Available Not Available ciproflox acin 500 mg tablet Take 1 tablet every 12 hours by oral route for 7 days. 11/13 completed Not Available Not Available Not Available levothyro xine 25 mcg tablet TAKE 1 TABLET BY MOUTH EVERY DAY 01/15 completed Not Available Not Available Not Available levothyro xine 75 mcg tablet TAKE 1 TABLET BY MOUTH EVERY DAY 2022 active Not Available Not Available Not Avai lable meclizine 25 mg tablet take 1 tablet TID PRN vertigo active Not Available Not Available No t Available levothyro xine 50 mcg tablet TAKE 1 TABLET BY MOUTH EVERY DAY active Not Available Not Available No t Available Pepcid 20 mg tablet Take 1 tablet twice a day by oral route for 14 days. active Not Available Not Available No t Available norethind nadya (contrace ptive) 0.35 mg tablet 0.35 MG ORALLY DAILY active Not Available Not Available No t Available cefdinir 300 mg capsule TAKE 1 CAPSULE BY MOUTH EVERY 12 HOURS FOR 7 DAYS active Not Available Not Available No t Available fluticaso ne propionat e 50 mcg/actua tion nasal spray,christine pension Take 2 sprays every day by nasal route. active Not Available Not Available No t Available sertralin e 50 mg tablet TAKE 1 TABLET BY MOUTH EVERY DAY 10/28 completed Not Available Not Available Not Available Sprintec (28) 0.25 mg-0.035 mg tablet TAKE ONE TABLET BY MOUTH ONCE DAILY 01/06 completed Not Available Not Available Not Available Sprintec (28) qd 05/31 completed Not Available Not Available Not Available drospiren one 3 mg-ethiny l estradiol 0.02 mg tablet TAKE 1 TABLET BY MOUTH EVERY DAY 01/19 completed Not Available Not Available Not Available vitamin E (dl, acetate) 180 mg (400 unit) capsule Take 1 capsule every day by oral route. 2020 active Not Available Not Available Not Avai lable Viibryd 10 mg tablet Take 1 tablet by oral route. 05/11 completed Not Available Not Available Not Available Viibryd one tablet daily 2012 active Not Available Not Available Not Avai lable Wegovy 0.25 mg/0.5 mL subcutane ous pen injector Inject by subcutan eous route for 28 days. active Not Available Not Available No t Available Vitals Date Recorded Body height Body mass index (BMI) Body weight Body temperature Heart rate Systolic blood pressure Diastolic blood pressure Provider Name and Address Organization Details Last Updated DateTime 3 165.1 cm 34.3 kg/m2 80466.0 3 g 97.8 [degF] 77 /min 118 mm[Hg] 74 mm[Hg] Dolores kauffman RN [place] - [place] [employer] [facility] 3 14:08:27 Date Recorded Body mass index (BMI) Body height Heart rate Body temperature Body weight Systolic blood pressure Diastolic blood pressure Provider Name and Address Organization Details Last Updated DateTime 1 33.1 kg/m2 165.1 cm 84 /min 96.6 [degF] 75700.8 8 g 122 mm[Hg] 70 mm[Hg] Not Available [facility] 3 02:47:44 Date Recorded Body mass index (BMI) Body height Heart rate Body temperature Body weight Systolic blood pressure Diastolic blood pressure Provider Name and Address Organization Details Last Updated DateTime 2 33.6 kg/m2 165.1 cm 72 /min 98.3 [degF] 83146.6 6 g 124 mm[Hg] 70 mm[Hg] Not Available [facility] 3 02:47:44 Date Recorded Body mass index (BMI) Body height Heart rate Body temperature Body weight Systolic blood pressure Diastolic blood pressure Provider Name and Address Organization Details Last Updated DateTime 2 33.8 kg/m2 165.1 cm 64 /min 97.4 [degF] 51858.2 5 g 120 mm[Hg] 84 mm[Hg] Not Available [facility] 3 02:47:44 Date Recorded Body height Provider Name an d Address Organization Details Last Updated DateTime 04/27/2021 165.1 cm Not Available [facility] 3 02:47:45 Social History Question Answer Notes LastModified by Organization Details LastModified Time Tobacco Smoking Status Never Smoker Not Available [facility] 06/09/2022 02:36:51 Do You Have An Advance Directive? No MIGRATION.0301 [id number] Information not available 06/09/2022 What Is Your Level Of Alcohol Consumption? Occasional MIGRATION.0301 [id number] Information not available 06/09/2022 What Is Your Level Of Caffeine Consumption? Heavy MIGRATION.0301 [id number] Information not available 06/09/2022 How Much Tobacco Do You Chew? None MIGRATION.0301 [id number] Information not available 06/09/2022 In The 14 Days Before Symptom Onset, Have You Had Close Contact With A Laboratory-confi rmed COVID-19 While That Case Was Ill? Yes MIGRATION.0301 [id number] Information not available 06/09/2022 In The 14 Days Before Symptom Onset, Have You Had Close Contact With A Person Who Is Under Investigation For COVID-19 While That Person Was Ill? Yes MIGRATION.0301 [id number] Information not available 06/09/2022 What Type Of Diet Are You Following? REGULAR MIGRATION.0301 107486 Information not available 06/09/2022 Which Illicit Or Recreational Drugs Have You Used? No MIGRATION.0301 [id number] Information not available 06/09/2022 Do You Or Have You Ever Used E-cigarettes Or Vape? Never Used Electronic Cigarettes MIGRATION.030 696147 Information not available 06/09/2022 What Is The Highest Grade Or Level Of School You Have Completed Or The Highest Degree You Have Received? 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 No MIGRATION.0301 757199 Information not available 06/09/2022 What Is The Fluoride Status Of Your Home? Fluoridated MIGRATION.030 253195 Information not available 06/09/2022 Are There Any Guns Present In Your Home? Yes Kept Secured MIGRATION.0301 [id number] Information not available 06/09/2022 Where Do You Live? [place]LevelHouse MIGRATION.0301 [id number] Information not available 06/09/2022 Do You Have A Medical Power Of Blood Bank Attendant? No MIGRATION.0301 773963 Information not available 06/09/2022 What Was The Date Of Your Most Recent Tobacco Screening? 02/16/2022 MIGRATION.0301 621990 Information not available 06/09/2022 Have You Ever Been Counseled For Unhealthy Alcohol Use? No MIGRATION.0301 348379 Information not available 06/09/2022 Do You Have Any Pets? Yes 4 Dogs MIGRATION.0301 737984 Information not available 06/09/2022 What Is Your Relationship Status? MIGRATION.0301 [id number] Information not available 06/09/2022 Do You Use Your Seat Belt Or Car Seat Routinely? Yes MIGRATION.0301 [id number] Information not available 06/09/2022 Do You Have Smoke And Carbon Monoxide Detectors In Your Home? Yes MIGRATION.0301 941146 Information not available 06/09/2022 Are You Passively Exposed To Smoke? No MIGRATION.0301 114194 Information not available 06/09/2022 Do You Or Have You Ever Used Smokeless Tobacco? Never Used Smokeless Tobacco MIGRATION.0301 462361 Information not available 06/09/2022 How Much Tobacco Do You Smoke? No MIGRATION.0301 228722 Information not available 06/09/2022 What Types Of Sporting Activities Do You Participate In? None MIGRATION.0301 898786 Information not available 06/09/2022 Do You Feel Stressed (tense, Restless, Nervous, Or Anxious, Or Unable To Sleep At Night)? [id number] MIGRATION.0301 824849 Information not available 06/09/2022 Do You Use Any Illicit Or Recreational Drugs? No MIGRATION.0301 816039 Information not available 06/09/2022 Do You Use Sunscreen Routinely? Yes MIGRATION.0301 882804 Information not available 06/09/2022 Has Tobacco Cessation Counseling Been Provided? No MIGRATION.0301 846754 Information not available 06/09/2022 Have You Recently Traveled Abroad? No MIGRATION.0301 547862 Information not available 06/09/2022 Do You Have Any Dietary Restrictions? No MIGRATION.0301 609248 Information not available 06/09/2022 Do You Or Have You Ever Used Any Other Forms Of Tobacco Or Nicotine? No MIGRATION.0301 727084 Information not available 06/09/2022 Sex: Female Functional Status Question Answer Note LastModified by Organizat ion Details LastModified Time What is your exercise level? Occasional [id number] 26 Information not available 06/09/2022 Mental Status None recorded. Family History Relationship Description Onset Age of this Age Resolved Age Notes LastModified by Organization Details LastModified Time Father Family history of malignant neoplasm deceas ed MIGRATION.372 [id number] Not available 06/09/2022 02:44:58 Mother Family history of malignant neoplasm deceas ed MIGRATION.423 [id number] Not available 06/09/2022 02:44:58 Sister Hyperlipidem ia MIGRATION.137 [id number] Not available 06/09/2022 02:44:58 Maternal Uncle Diabetes mellitus MIGRATION.806 [id number] Not available 06/09/2022 02:44:58 Paternal Grandmother Family history of malignant neoplasm MIGRATION.342 [id number] Not available 06/09/2022 02:44:58 Medical History Condition Response HYPOTHYROIDISM Y HIGH CHOLESTEROL / HYPERLIPIDEMIA Y Gynecological History Statement/Question Response Abnormal Pap N Date of LMP 10/07/2020 Date of Last Pap Smear 09/27/2019 Current Control Method Partner Vas ectomy Age at Menarche 11 Most Recent Mammogram 01/08/2021 Breast Problems no Obstetrics History GPAL:G 1 P 1 0 0 1 Type Value Full Term 1 Living 1 Total 1 Immunizations Vaccine Type Date Status Note Provider Nam e and Address Organization Details Recorded Time COVID-19 vaccine, vector-nr, rS-Ad26, PF, 0.5 mL 07/16/2020 completed Not Available [facility] 3 06:31:01 Past Encounters Encounter ID Performer Location Encounter Start Date Encounter Closed Date Diagnosis/Indication Diagnosis SNOMED-CT Code Diagnosis ICD10 Code Diagnosis Note [id number] _ATHENA_M IGRATION_ DEFAULT_1 _1 , 06/23/2020 00:00:00 06/23/2020 19:14:29 [id number] _ATHENA_M IGRATION_ DEFAULT_1 _1 , 09/22/2020 00:00:00 09/22/2020 14:34:23 [id number] _ATHENA_M IGRATION_ DEFAULT_1 _1 , 10/20/2020 00:00:00 10/20/2020 17:03:12 [id number] [facility] [address] [address] 01/19/2021 00:00:00 01/19/2021 22:46:08 [id number] [facility] [address] [place] [address] [address] [address] 02/23/2021 00:00:00 03/07/2021 17:13:15 [id number] [facility] [address] [place] [address] Ave[address] [address] 04/27/2021 00:00:00 05/02/2021 18:10:06 [id number] [facility] [address] [place] [address] [address] [address] 07/14/2021 00:00:00 07/14/2021 22:42:00 [id number] [facility] [address] [address] [place] [address] 02/16/2022 00:00:00 02/16/2022 22:03:57 [id number] Israel Day MD [facility] Internal Med [place] [address], [address] [place] [address] 07/19/2022 13:48:10 07/19/2022 14:39:36 Hyperlipidemia 08741872 E78.5 Hypothyroidism 93617035 E03.9 Overweight 532099077 E66 .3 Headache 10187024 R51.9 Anxiety 43800904 F41.9 Health Concerns Section Related Observation LastModified by Organization Detai ls LastModified Time None Recorded Concern Status LastModified by Organization Details LastModified Time None Recorded Advance Directives Directive N: Payers Encounter Date Sequence Insurance Name Policy Number Policy Ndiaye Covered Member ID Ndiaye Member ID Guarantor Name 07/19/2022 1 [facility] [id number] Beverly Allen [id number] Beverly Allen 07/19/2022 2 Fund Recs - OPEN ACCESS Dylon Allen [id number] Beverly Allen Notes Date Note Type Note Provider Name and Address Organization Details Recorded Time 3 text/html migraines seem to be doing fineoverweight nothing helpinghyperlipidemia nothing helping his weightanxiety doing fine Israel Day MD [address] [facility] [address], [address], [place], [address], [place] [facility] 07/19/2022 14:44:28 OBGyn Episode No OBEpisode recorded.
--- OUTSIDE RECORDS SUMMARY | 2024-07-24 17:14 | XMS_ITS | Continuity of Care Document ---
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 Name Role Phone Constantin Gibson Unavailable Unavailable Procedures Procedure Date THERAPEUTIC EXERCISES NEUROMUSCULAR RE-ED MANUAL THERAPY FUNC ACTIVITY HOT/COLD PACK ELECTRIC STIMULATION UNATT THERAPEUTIC EXERCISES NEUROMUSCULAR RE-ED MANUAL THERAPY FUNC ACTIVITY HOT/COLD PACK ELECTRIC STIMULATION UNATT PT EVALUATION THERAPEUTIC EXERCISES FUNC ACTIVITY HOT/COLD PACK ELECTRIC STIMULATION UNATT Advance Directives Directive Yes / No Effective Date File Name No Information Encounters Encounter Description Practice Location Reason(s) For Visit Diagnoses Date Provider Providers Copied on Encounter [facility], [address] [place] [address], [id number], tel:[phone] Frost No Information 3201 4 Mariluz Killian. [address] [facility], [address], [facility], [place]. tel: [phone] [facility], [address] [place] [address], [id number], tel:[phone] [place] No Information 8-201 4 Mariluz Killian. [address] [facility], [facility] [address] [place], [facility], [place]. tel: [phone] Referring Provider: Will Cohen, [address] [facility] Office [facility] [address], [address]. tel:[phone], [id number], [phone] [place] No Information 4 Mariluz Constantin. [address] [facility], [address], [facility], . tel:[phone] Referring Provider: Will Cohen, [address] [facility] [address], [address]. tel:[phone], [id number], tel:[phone] [place] Pain in joint involving lower leg 4 Mariluz Constantin. [address] [facility], [address], [facility], . tel:[phone] Referring Provider: Will Cohen, [address] [facility] [address], [address]. tel:[phone] Family History Family Member Type Diagnosis Age At Onset No Information Payers Payer name Insurance type Covered libertarian ID Authoriza tion(s) No Information Social History Type Description Quantity Date Captured Comments Sex Female Smoking Status No Information Chief Complaint And Reason For Visit No Information Reason For Referral Reason For Referral No Information History Of Present Illness Encounter Date Complaint History Of Prese nt Illness No Information Functional Status Date Functional Assessmen t No Information Instructions Date Instruction Additional Infor mation No Information Assessments Type Assessment Date No Information Patient Care Teams Name Effective Dates (start - stop) Status Members No Information
[2024-07-24 17:31] LABS: Basophils Percent Auto 0.3 % (0.2-1.2); Eosinophils Absolute Auto 0.2 K/mm3 (0-0.3); Eosinophils Percent Auto 2.8 % (0-4.4); Hematocrit 38.7 % (37.0-47.0); Hemoglobin 12.4 g/dL (12.0-15.0); Immature Granulocyte Absolute 0.01 K/mm3 (0.00-0.031); Immature Granulocyte Percent A 0.2 % (0-0.5); Lymphocytes Absolute Auto 1.01 K/mm3 (0.9-3.2); Lymphocytes Percent Auto 15.9 % (18.3-44.2); Mean Corpuscular Hemoglobin 28.1 pg (26-34); Mean Corpuscular Volume 87.8 fl (80-100); Mean Platelet Volume 9.3 fl (7.4-10.4); Monocytes Absolute Auto 0.5 K/mm3 (0.1-0.6); Monocytes Percent Auto 7.1 % (2.6-8.5); Neutrophils Absolute Auto 4.7 K/mm3 (1.3-6.7); Neutrophils Percent Auto 73.7 % (45.5-73.1); Platelet Count Result 259 k/mm3 (150-375); Red Blood Count 4.41 M/mm3 (4.2-5.4); Red Cell Distribution Width 14.2 % (11.5-14.5); White Blood Count 6.4 K/mm3 (4.5-10.0)
[2024-07-24 17:39] LABS: Alanine Aminotransferase 31 U/L (6-35); Albumin Level 4.6 g/dL (3.5-5.1); Alkaline Phosphatase 101 U/L (38-126); Anion Gap 9 mmol/L (4-12); Aspartate Amino Transferase 30 U/L (14-36); Bilirubin,Total 0.3 mg/dL (0.2-1.3); Blood Urea Nitrogen 22 mg/dL (7-17); Calcium 9.4 mg/dL (8.4-10.2); Carbon Dioxide 25 mmol/L (22-30); Chloride 104 mmol/L (98-107); Cholesterol 157 mg/dL (0-200); Estimated Glomerular Filt Rate > 60; Glucose 87 mg/dL (65-110); HDL Direct 57 mg/dL; Sodium 138 mmol/L (137-145); Triglycerides 152 mg/dL (<150)
[2024-07-24 17:50] LABS: LDL Cholesterol Direct 68 mg/dL
[2024-07-24 18:10] LABS: Total Triiodothyronine (T3) 1.12 NG/ML (0.97-1.69)
== END 2024-07-24 17:07 | disposition home or self-care (01) ==
LOC: ANHLAB 17:11
PROVIDERS: PCP Internal Medicine; Visit Provider Internal Medicine
DX: E78.5 Hyperlipidemia, unspecified (principal); E03.9 Hypothyroidism, unspecified
CPT/HCPCS: 36415; 80053; 80061; 84443; 84480; 85025

== ENCOUNTER 2024-10-30 09:06 | Outpatient (CLI) | payer OTHER, SELFPAY ==
--- OUTSIDE RECORDS SUMMARY | 2024-10-30 09:12 | XMS_ITS | Referral Summary ---
Author Organization [facility] [address] [facility] [address] Address [address] [place] [address] Care Team Providers Care Hair Boiler Name Role Phone Israel Day MD Primary Care Provider [phone] Alhaji Guerrero MD Unavailable [phone] Celi Rodríguez MD Unavailable [phone] Yony Iverson DO Unavailable [phone] Encounters Date Type Department Care Team Description 10/11/[address] [facility] Oncology [address] [facility] [address] [place] [phone] Yony Iverson DO 10/11/2024 9:00 AM CDT Infusion [address] [place] [phone] Invasive lobular carcinoma of breast, stage 1, right (HCC) (Primary Dx) 10/02/2024 2:30 PM CDT Office Visit [facility] Surgery [address] [facility] 6th [place] [address] Deshaun Franco MD Invasive lobular carcinoma of breast, stage 1, right (HCC) 09/13/2024 4:30 PM CDT Infusion [facility] at [address] [place] [phone] Invasive lobular carcinoma of breast, stage 1, right (HCC) (Primary Dx) 09/13/2024 3:30 PM CDT Lab [facility] Cancer [place] at [address] [address] Invasive lobular carcinoma of breast, stage 1, right (HCC) 09/13/2024 4:00 PM CDT Office Visit [facility] Oncology [address] [place] [address] [address] [place] [address] Yony Iverson DO Invasive lobular carcinoma of breast, stage 1, right (HCC) (Primary Dx) 09/06/2024 7:43 AM CDT - 09/06/2024 11:59 PM CDT Hospital Encounter [facility] Medical Office Building [address] [place] [address] Invasive lobular carcinoma of breast, stage 1, right (HCC) Discharge Disposition: Discharge to home or self care 08/16/2024 8:15 AM CDT Infusion [facility] at [address] [phone] Invasive lobular carcinoma of breast, stage 1, right (HCC) (Primary Dx) 08/16/2024 Orders Only [facility] Oncology [address] [place] [phone] Yony Iverson DO from Last 3 Months Allergies Active Allergy Reactions Criticality Noted Date Comments Nitrofurantoin Hives,Swelling Medium Throat swelling Penicillins Other (See comments) Low Was informed of this in childhood, unsure of reaction Sulfa (Sulfonamide Antibiotics) Hives,Swelling Medium Throat swelling Medications atorvastatin (LIPITOR) 10 mg tablet Take 1 tablet (10 mg total) by mouth nightly 1 Active cetirizine (ZyrTEC) 10 mg tablet Take 1 tablet every day by oral route as needed. 1 Active SUMAtriptan (IMITREX) 50 mg tablet TAKE 1 TABLET BY MOUTH AT ONSET OF HEADACHE. MAY REPEAT IN 2 HOURS, ONLY 2 PILLS IN 12 HOUR SPAN Active acetaminophen-aspi rin-caffeine (EXCEDRIN MIGRAINE) 250-250-65 mg per tablet Take 2 tablets by mouth every 6 (six) hours as needed for headaches Active levothyroxine (SYNTHROID) 88 mcg tablet Take 1 tablet (88 mcg total) by mouth daily Active anastrozole (ARIMIDEX) 1 mg tabletIndications: Early Breast Cancer HR Positive and Postmenopausal Take 1 tablet (1 mg total) by mouth every other day 45 tablet 1 Active Active Problems Problem Noted Date Diagnosed Date Abnormal weight gain 10/02/2024 Fatigue 10/02/2024 Otalgia 10/02/2024 Perennial allergic rhinitis 10/02/2024 Rhinitis 10/02/2024 Premenstrual dysphoric disorder 10/02/2024 Upper respiratory infection 10/02/2024 Vertigo 10/02/2024 Personal history of radiation therapy 12/07/2023 Anxiety disorder 07/18/2023 Hyperlipidemia 07/18/2023 Invasive lobular carcinoma of breast, stage 1, r ight 06/28/2023 Cancer Staging:Pathologic stage from 09/27/2023:Stage IB(pT3, pN1(sn), cM0, G1, ER+, MD+, HER2-) - Signed by Celi Rodríguez MD on 09/27/2023 Acute sinusitis 12/06/2022 Overweight 07/19/2022 Breast mass 02/08/2021 Mastodynia 02/08/2021 Hypothyroidism 01/19/2021 Knee pain 10/08/2013 Resolved Problems Problem Noted Date Diagnosed Date Resolved Date Invasive ductal carcinoma of breast, female, right 06/28/2023 06/28/2023 Social History Tobacco Use Types Packs/Day Years Used Date Smoking Tobacco: Never Passive Smoke Exposure: Past Smokeless Tobacco: Never Tobacco Cessation:Counseling Given: Not Answered Passive Exposure Comments:as a child [facility] Utilities Answer Date Recorded In the past 12 months has [employer], gas, oil, or water [employer] threatened to shut off services in your [...] often do you attend chur ch or judaism services? Never 08/12/2023 Do you belong to any clubs o r organizations such as mandaeism groups, unions, fraternal or athletic groups, or [...] place to sleep or slept in a correction (including now)? No 08/12/2023 Personal Safety Answer Date Recorded Have you ever been in or are you currently in a harmful physical or emotional relationship or is someone making you feel afraid or unsafe? 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 Not on file Not on file Not on maría e Last Filed Vital Signs Vital Sign Reading Time Taken Comments Blood Pressure 144/91 10/11/2024 9:24 AM CDT Pulse 61 10/11/2024 9:24 AM CDT Temperature 36.8 C (98.2 F) 10/11/2024 9:24 AM CDT Respiratory Rate 18 10/11/2024 9:24 AM CDT Oxygen Saturation 99% 10/11/2024 9:24 AM CDT Inhaled Oxygen Concentration - - Weight 93 kg (205 lb) 10/11/2024 9:24 AM CDT Height 166 cm (5' 5.35) 09/13/2024 4:00 PM CDT no shoes Body Mass Index 33.75 09/13/2024 4:00 PM CDT Plan of Treatment Not on file Medical Devices Implanted Type Area Dive Master Device Identifier Shelf Expiration Date Model / Serial / Lot I [employer] Eviva 13cm Identifier Biopsy Site [id number] - [id number] Implanted:Qty: 1 on 06/21/2023 by Alhaji Guerrero MD at [facility] [employer] [id number] 12/01/2023 [employer]EVIV A-13 / / [id number] Procedures Procedure Name Priority Date/Time Associated Diagnosis Comments EGFR Routine 09/13/2024 3:29 PM CDT Invasive lobular carcinoma of breast, stage 1, right (HCC) DIFFERENTIAL AUTO Routine 09/13/2024 3:2 9 PM CDT Invasive lobular carcinoma of breast, stage 1, right (HCC) CBC WITH AUTO DIFFERENTIAL Routine 09/13/2024 3:29 PM CDT Invasive lobular carcinoma of breast, stage 1, right (HCC) COMPREHENSIVE METABOLIC PANEL Routine 09/13/2024 3:29 PM CDT Invasive lobular carcinoma of breast, stage 1, right (HCC) CANCER ANTIGEN 15-3 Routine 09/13/2024 3 :29 PM CDT Invasive lobular carcinoma of breast, stage 1, right (HCC) CT CHEST ABDOMEN PELVIS W CONTRAST Schedule Routine, Read Routine (OP Routine) 09/06/2024 8:15 AM CDT Invasive lobular carcinoma of breast, stage 1, right (HCC) POCT CREATININE FOR CONTRAST EVALUATION Routine 09/06/2024 8:09 AM CDT DIAGNOSTIC MAMMOGRAM BILATERAL W LOC Schedule Routine, Read Routine (OP Routine) 06/07/2023 10:49 AM AUTOMATION CLERK Mastodynia from Last 3 Months or Most Recently Relevant to Health Maintenance Results * eGFR (09/13/2024 3:29 PM CDT) eGFR 80 >=60 mL/min/1. 73 m2 Comment: Interpretive Data [...] was last reviewed 2021. Testing performed by: [facility], [address] [place] [address]., [id number] Blood 09/13/2024 3:29 PM CDT 09/13/2024 3:31 PM CDT us Yony Iverson DO LAB BLOOD ORDERABLES Final R esult RHINA LEOS [address] [facility] [place] [address] * Differential, auto (09/13/2024 3:29 PM CDT) Neutrophil abs 3.93 1.50 - 6.50 K/cumm Comment:Testing performed by : [address] [address] Imm gran abs 0.02 0.00 - 0.10 K/cumm RHINA Comment:Testing performed by : [address] [address] Lymphocyte abs 1.05 0.80 - 3.30 K/cumm RHINA Comment:Testing performed by : [address] [address] Monocyte abs 0.45 0.20 - 0.80 K/cumm RHINA Comment:Testing performed by : [address] [address] Eosinophil abs 0.17 0.00 - 0.50 K/cumm RHINA Comment:Testing performed by : [address] [address] Basophil abs 0.02 0.00 - 0.10 K/cumm RHINA Comment:Testing performed by : [address] [address] Neutrophil pct 69.6 % RHINA Comment: Interpretive Data Percent cell count reference ranges are not reported, since discordance with absolute values may lead to misinterpretation of CBC data. Current Interpretive Data was last revised on 2017. Testing performed by: [address] [address] Imm gran pct 0.4 % RHINA Comment: Interpretive Data Percent cell count reference ranges are not reported, since discordance with absolute values may lead to misinterpretation of CBC data. Current Interpretive Data was last revised on 2017. Testing performed by: [address] [address] Lymphocyte pct 18.6 % [facility] Comment: Interpretive Data Percent cell count reference ranges are not reported, since discordance with absolute values may lead to misinterpretation of CBC data. Current Interpretive Data was last revised on 2017. Testing performed by: [address] [address] Monocyte pct 8.0 % [facility] Comment: Interpretive Data Percent cell count reference ranges are not reported, since discordance with absolute values may lead to misinterpretation of CBC data. Current Interpretive Data was last revised on 2017. Testing performed by: [address] [address] Eosinophil pct 3.0 % [facility] Comment: Interpretive Data Percent cell count reference ranges are not reported, since discordance with absolute values may lead to misinterpretation of CBC data. Current Interpretive Data was last revised on 2017. Testing performed by: [address] [address] Basophil pct 0.4 % [facility] Comment: Interpretive Data Percent cell count reference ranges are not reported, since discordance with absolute values may lead to misinterpretation of CBC data. Current Interpretive Data was last revised on 2017. Testing performed by: [address] [address] Blood 09/13/2024 3:29 PM CDT 09/13/2024 3:31 PM CDT Yony Iverson DO LAB BLOOD ORDERABLES Final R esult [facility] [address] [facility] [place] [address] * CBC with auto differential (09/13/2024 3:29 PM CDT) WBC 5.64 3.80 - 9.90 K/cumm Comment:Testing performed by : [address] [address] Hgb 13.0 11.9 - 15.5 g/dL RHINA Comment:Testing performed by : [address], [address] Hct 39.1 35.6 - 45.5 % RHINA Comment:Testing performed by : [address] [address] Plt 244 150 - 400 K/cumm RHINA Comment:Testing performed by : [address], [address] MPV 9.6 9.1 - 12.3 fL RHINA Comment:Testing performed by : [address], [address] RBC 4.74 3.90 - 5.20 M/cumm RHINA Comment:Testing performed by : [address], [address] MCV 82.5 81.3 - 96.4 fL RHINA Comment:Testing performed by : [address], [address] MCH 27.4 27.1 - 33.3 pg RHINA Comment:Testing performed by : [address] [address] MCHC 33.2 32.3 - 35.7 g/dL RHINA Comment:Testing performed by : [address], [address] RDW CV 14.0 11.1 - 14.9 % RHINA Comment:Testing performed by : [address], [address] RDW SD 41.7 35.7 - 48.1 fL RHINA Comment:Testing performed by : [address] [address] NRBC abs 0.00 0.00 - 0.01 K/cumm RHINA Comment:Testing performed by : [address] [address] ANC Prelim 3.93 1.50 - 6.50 K/cumm RHINA Comment: Interpretive Data The rapid ANC is a preliminary automated count and may vary from the final ANC (Neut Abs) reported in the WBC differential that follows. Current interpretive data was last revised 2024. Testing performed by: [address] [address] Blood 09/13/2024 3:29 PM CDT 09/13/2024 3:31 PM CDT Yony DominguezFrandy Kishor [facility] BLOOD ORDERABLES Final R [facility] Performing Organization Address [facility] de Phone Number [address] [address] * Cancer antigen 15-3 (09/13/2024 3:29 PM CDT) Pathologist [facility] CA 15-3 ag 14.5 0.0 - 25.0 units/mL Comment: Interpretive Data The Annmarie CA 15-3 assay procedure was used. Results from different manufacturers or methods may not be comparable. Serial testing should be performed using the same method. Testing performed by: [address] [address] Blood 09/13/2024 3:29 PM CDT 09/13/2024 4:26 PM CDT Yony DominguezFrandy Kishor [facility] BLOOD ORDERABLES Final [facility] Performing Organization Address [facility] de Phone Number [address] [address] * Comprehensive metabolic panel (09/13/2024 3:29 PM CDT) Pathologist [facility] Sodium 143 135 - 145 mmol/L Comment:Testing performed by : [address] [address] Potassium, pl 3.9 3.3 - 4.9 mmol/L RHINA Comment:Testing performed by : [address] [address] Chloride 106 97 - 110 mmol/L RHINA Comment:Testing performed by : [address] [address] CO2 25 22 - 32 mmol/L RHINA Comment:Testing performed by : [address] [address] Anion gap 12 2 - 15 mmol/L RHINA Comment:Testing performed by : [address] [address] BUN 16 6 - 25 mg/dL RHINA Comment:Testing performed by : [address] [address] Creatinine 0.90 0.60 - 1.10 mg/dL RHINA Comment:Testing performed by : [address] [address] Glucose 82 70 - 199 mg/dL RHINA Comment: Interpretive [...] classification and Diagnosis of Diabetes Diabetes Care 202; 46: S19-S40. Current interpretive data was last revised 2022. Testing performed by: [address] [address] Calcium 9.8 8.5 - 10.3 mg/dL RHINA Comment:Testing performed by : [address] [address] Bilirubin, total 0.2 0.1 - 1.2 mg/dL RIHNA Comment:Testing performed by : [address] [address] Protein, pl 7.6 6.5 - 8.5 g/dL RHINA Comment:Testing performed by : [address] [address] Albumin 4.7 3.5 - 5.0 g/dL RHINA Comment:Testing performed by : [address] [address] Alk phos 110 40 - 130 Units/L RHINA Comment:Testing performed by : [address] [address] ALT 19 7 - 45 Units/L RHINA LEOS Comment:Testing performed by : [facility], [address] [place] [address]., [address] AST 20 10 - 45 Units/L RHINA LEOS Comment:Testing performed by : [facility], [address] [place] [address]., [address] Blood 09/13/2024 3:29 PM CDT 09/13/2024 3:31 PM CDT us Yony Iverson DO LAB BLOOD ORDERABLES Final R esult [facility]INA LEOS [address] [facility] [place] [address] * CT Chest Abdomen Pelvis W Contrast (09/06/2024 8:15 AM CDT) Anatomical Region Laterality Modality Body N/A Computed Tomogra phy 09/07/2024 1:22 PM CDT Narrative 09/07/2024 1:43 PM CDT EXAM DESCRIPTION: CT CHEST ABDOMEN PELVIS W CONTRAST REASON FOR STUDY: restaging breast cancer 6 month breast cancer f/u. No complaints. Hx of double mastectomy. TECHNIQUE: CT scan of the chest, abdomen, and pelvis performed with intravenous and without oral contrast using helical scanning technique with dynamic intravenous contrast injection. Reconstructed coronal and sagittal MPR images reviewed. All images stored on PACS. Automated exposure control was used as a dose optimization technique for this examination. CONTRAST TYPE/DOSE: 100mL of IOVERSOL 350 MG IODINE/ML INTRAVENOUS SYRINGE injected via intravenous COMPARISON: 03/23/2024, 10/06/2023. FINDINGS: CHEST LUNGS: No consolidation. Mild subsegmental scarring and atelectasis. Mild reticular opacity in the right upper lobe and right middle lobe, consistent with post treatment change. 3 mm nodule at the left apex may be faintly calcified, stable. No new suspicious pulmonary nodule. The central airways are patent. PLEURA: No effusion. No pneumothorax. MEDIASTINUM/RAMIRO: No identified masses or abnormal nodes. HEART: The heart is normal in size, without pericardial effusion. VASCULATURE CHEST: Thoracic aorta is normal in caliber without dissection. Main pulmonary trunk is normal in caliber. 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 AXILLA: No adenopathy. CHEST WALL: Bilateral mastectomy changes are noted. Skin thickening on the right, and mild edema within the subcutaneous tissues, presumably post treatment change, similar to the previous examination. HARDWARE/LINES/TUBES: None. MUSCULOSKELETAL CHEST: Spondylosis and degenerative disc disease greatest in the lower cervical spine. No destructive osseous lesion within the chest. ABDOMEN/PELVIS LIVER: There is a hypodense lesion within the posterior left hepatic lobe measuring 6 mm in size, grossly stable compared to the prior examination. This lesion is too small to characterize. Continued attention on surveillance imaging necessary. No new suspicious hepatic lesion. GALLBLADDER: No stones identified. No wall thickening or inflammatory changes. BILE DUCTS: No intrahepatic or extrahepatic ductal dilatation. SPLEEN: 1.5 cm periphery calcified lesion within the spleen superiorly, stable. No new suspicious lesion. PANCREAS: No identified cystic or solid masses. No significant calcifications. No adjacent inflammation or peripancreatic fluid collections. Pancreatic duct not dilated. ADRENALS: Normal. KIDNEYS/URINARY TRACT: No identified significant cystic or solid masses. No visualized stones. No hydronephrosis or hydroureter. Symmetric enhancement. The urinary bladder is decompressed, limiting evaluation. GI: The stomach is partially decompressed, similar to prior studies. Small bowel loops are within normal limits in caliber. There is no obstruction. There is diverticulosis of the colon. The transverse colon is decompressed. A component of wall thickening is difficult to exclude. Descending and sigmoid colon are also decompressed, limiting evaluation. Diverticulosis, without diverticulitis. PERITONEUM: There is no free intraperitoneal air. There is no free fluid. No mesenteric lymphadenopathy. RETROPERITONEUM: No retroperitoneal mass or adenopathy. REPRODUCTIVE: The uterus is within normal limits in size. No adnexal mass. Ovaries grossly symmetric, not well evaluated by CT. VASCULATURE ABDOMEN: The abdominal aorta is normal in caliber without dissection. MUSCULOSKELETAL ABDOMEN PELVIS: There is no acute osseous abnormality. 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 No destructive osseous lesion. OTHER: No significant abnormality. IMPRESSION: No evidence of metastatic disease within the chest, abdomen or pelvis. Stable post treatment changes within the right chest wall. Stable 6 mm hypodense lesion within the left hepatic lobe, too small to characterize. Continued attention on surveillance imaging recommended. Portions of the colon decompressed. A component of true wall thickening is difficult to entirely exclude. Correlate clinically with regards to infectious or inflammatory colitis. Additional findings as above THIS IS AN ELECTRONICALLY VERIFIED FINAL REPORT 09/07/2024 1:43 PM - Electronically signed by Lin Lock M.D. TW: [facility] Report ID: [id number] Reading Location: [id number] Procedure Note Lin Lock MD - 09/07/2024 EXAM DESCRIPTION: CT CHEST ABDOMEN PELVIS W CONTRAST REASON FOR STUDY: restaging breast cancer 6 month breast cancer f/u. No complaints. Hx of double mastectomy. TECHNIQUE: CT scan of the chest, abdomen, and pelvis performed with intravenous and without oral contrast using helical scanning techniquewith dynamic intravenous contrast injection. Reconstructed coronal and sagittalMPR images reviewed. All images stored on PACS. Automated exposure control was used as a dose optimization technique for this examination. CONTRAST TYPE/DOSE: 100mL of IOVERSOL 350 MG IODINE/ML INTRAVENOUS SYRINGE injected via intravenous COMPARISON: 03/23/2024, 10/06/2023. FINDINGS: CHEST LUNGS: No consolidation. Mild subsegmental scarring and atelectasis.Mild reticular opacity in the right upper lobe and right middle lobe,consistent with post treatment change. 3 mm nodule at the left apex may be faintly calcified, stable. No new suspicious pulmonary nodule. The centralairways are patent. PLEURA: No effusion. No pneumothorax. MEDIASTINUM/RAMIRO: No identified masses or abnormal nodes. HEART: The heart is normal in size, without pericardial effusion. VASCULATURE CHEST: Thoracic aorta is normal in caliber withoutdissection. Main pulmonary trunk is normal in caliber. 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 AXILLA: No adenopathy. CHEST WALL: Bilateral mastectomy changes are noted. Skin thickening onthe right, and mild edema within the subcutaneous tissues, presumably post treatment change, similar to the previous examination. HARDWARE/LINES/TUBES: None. MUSCULOSKELETAL CHEST: Spondylosis and degenerative disc diseasegreatest in the lower cervical spine. No destructive osseous lesion within the chest. ABDOMEN/PELVIS LIVER: There is a hypodense lesion within the posterior left hepaticlobe measuring 6 mm in size, grossly stable compared to the prior examination. This lesion is too small to characterize. Continued attention onsurveillance imaging necessary. No new suspicious hepatic lesion. GALLBLADDER: No stones identified. No wall thickening or inflammatory changes. BILE DUCTS: No intrahepatic or extrahepatic ductal dilatation. SPLEEN: 1.5 cm periphery calcified lesion within the spleen superiorly, stable. No new suspicious lesion. PANCREAS: No identified cystic or solid masses. No significant calcifications. No adjacent inflammation or peripancreatic fluidcollections. Pancreatic duct not dilated. ADRENALS: Normal. KIDNEYS/URINARY TRACT: No identified significant cystic or solid masses.No visualized stones. No hydronephrosis or hydroureter. Symmetricenhancement. The urinary bladder is decompressed, limiting evaluation. GI: The stomach is partially decompressed, similar to prior studies.Small bowel loops are within normal limits in caliber. There is no obstruction. There is diverticulosis of the colon. The transverse colon isdecompressed. A component of wall thickening is difficult to exclude. Descending and sigmoid colon are also decompressed, limiting evaluation. Diverticulosis, without diverticulitis. PERITONEUM: There is no free intraperitoneal air. There is no freefluid. No mesenteric lymphadenopathy. RETROPERITONEUM: No retroperitoneal mass or adenopathy. REPRODUCTIVE: The uterus is within normal limits in size. No adnexalmass. Ovaries grossly symmetric, not well evaluated by CT. VASCULATURE ABDOMEN: The abdominal aorta is normal in caliber without dissection. MUSCULOSKELETAL ABDOMEN PELVIS: There is no acute osseous abnormality. 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 No destructive osseous lesion. OTHER: No significant abnormality. IMPRESSION: No evidence of metastatic disease within the chest, abdomen or pelvis. Stable post treatment changes within the right chest wall. Stable 6 mm hypodense lesion within the left hepatic lobe, too small to characterize. Continued attention on surveillance imaging recommended. Portions of the colon decompressed. A component of true wall thickeningis difficult to entirely exclude. Correlate clinically with regards to infectious or inflammatory colitis. Additional findings as above THIS IS AN ELECTRONICALLY VERIFIED FINAL REPORT 09/07/2024 1:43 PM - Electronically signed by Lin Lock M.D. TW: [facility] Report ID: [id number] Reading Location: [id number] Yony Iverson DO IMG CT PROCEDURES Final Resu lt * POCT creatinine for contrast evaluation (09/06/2024 8:09 AM CDT) Creatinine POC 1.00 0.60 - 1.10 mg/dL Comment:Testing performed by : [facility], [address] [place] [address], [place]., [address] Blood 09/06/2024 8:09 AM CDT 09/06/2024 8:09 AM CDT Yony Iverson DO POINT OF CARE TEST ORDERABLE S Final Result [facility]INA [address] [facility] [place] [address] * (ABNORMAL) Diagnostic Mammogram Bilateral W Loc (06/07/2023 10:49 AM AUTOMATION CLERK) Anatomical Region Laterality Modality Breast Bilateral Mammography 06/07/2023 12:2 2 PM AUTOMATION CLERK Narrative 06/07/2023 12:30 PM AUTOMATION CLERK EXAM DESCRIPTION: US BREAST BILATERAL LIMITED; DIAGNOSTIC [...] Krystal Ho M.D. QX: QX Report ID: [id number] Reading Location: [facility] Pierce Alvarez MD IMG MAMMO PROCEDURES Fin al Result from Last 3 Months or Most Recently Relevant to Health Maintenance Insurance [facility]US [facility] [id number] [facility] [place] [id number] [facility] CHO[facility] PLUS Advance Directives For more information, please contact: [phone] * Full Code (Latest Code Status on File) Date Activated Date Inactivated Comments 08/10/2023 1:46 PM 08/13/2023 1:51 PM Care Teams Hair Boiler Relationship Specialty Start Date End Date Israel Day MD PCP - General 11/19/19 Alhaji Guerrero MD [address] [place] [address] [address] [place] [address] Surgeon Surgery 06/24/23 Celi Rodríguez MD [address] [place] [address] [address] [place], [place] [address] Radiation Oncologist Radiation Oncology 06/24/23 Yony Iverson DO [address] [place] [address] MEDICAL ONCOLOGY, [facility] [address] [place] [address] Medical Oncologist/International Freight Forwarder Hematology and Oncology 09/12/23
--- OUTSIDE RECORDS SUMMARY | 2024-10-30 09:12 | XMS_ITS ---
Author Organization [facility] [address] [facility] nya Address [address] [facility] [address] Care Team Providers Care Cement Loader Name Role Phone Israel Day MD Primary Care Provider Alhaji Guerrero MD Unavailable [phone] Celi Rodríguez MD Unavailable [phone] Yony Iverson DO Unavailable [phone] Active Problems Problem Noted Date Diagnosed Date Abnormal weight gain 10/02/2024 Fatigue 10/02/2024 Otalgia 10/02/2024 Perennial allergic rhinitis 10/02/2024 Rhinitis 10/02/2024 Premenstrual dysphoric disorder 10/02/2024 Upper respiratory infection 10/02/2024 Vertigo 10/02/2024 Personal history of radiation therapy 12/07/2023 Anxiety disorder 07/18/2023 Hyperlipidemia 07/18/2023 Invasive lobular carcinoma of breast, stage 1, r ight 06/28/2023 Cancer Staging:Pathologic stage from 09/27/2023:Stage IB(pT3, pN1(sn), cM0, G1, ER+, AZ+, HER2-) - Signed by Celi Rodríguez MD on 09/27/2023 Acute sinusitis 12/06/2022 Overweight 07/19/2022 Breast mass 02/08/2021 Mastodynia 02/08/2021 Hypothyroidism 01/19/2021 Knee pain 10/08/2013 Current Treatment and Therapy Plans Leuprolide 28 Day Cycles - Breast* Plan Start Date:07/18/2023 Plan Provider:Yony Iverson, DO Linked Problems Invasive lobular carcinoma o f breast, stage 1, right (HCC) Treatment Medications Current Day (Day 1 , Cycle 18 - Planned for 11/08/2024) Next Day (Day 1, Cycle 19 - Planned for 12/06/2024) leuprolide (LUPRON)leuprolid e (monthly) (LUPRON) leuprolide (LUPRON) [...]
--- OUTSIDE RECORDS SUMMARY | 2024-10-30 09:13 | XMS_ITS | Clinical Summary ---
Author Organization [facility] [address] [facility] nya Address [address] [facility] [place] [address] Care Team Providers Care Book Canvasser Name Role Phone Israel Day MD Primary Care Provider [phone] Alhaji Guerrero MD Unavailable [phone] Celi Rodríguez MD Unavailable [phone] Yony Iverson DO Unavailable [phone] Allergies Active Allergy Reactions Criticality Noted Date [...] tablet (88 mcg total) by mouth daily 5 Active anastrozole (ARIMIDEX) 1 mg tabletIndications: Early [...] from 09/27/2023:Stage IB(pT3, pN1(sn), cM0, G1, ER+, IA+, HER2-) - Signed by Celi Rodríguez MD on 09/27/2023 Acute sinusitis 12/06/2022 Overweight 07/19/2022 Breast mass 02/08/2021 Mastodynia 02/08/2021 Hypothyroidism 01/19/2021 Knee pain 10/08/2013 Resolved Problems Problem Noted Date Diagnosed Date Resolved Date Invasive ductal carcinoma of breast, female, right 06/28/2023 06/28/2023 Encounters Date Type Department Care Team Description 10/11/2024 9:00 AM CDT Infusion [address] [phone] Invasive lobular carcinoma of breast, stage 1, right (HCC) (Primary Dx) 10/11/2024 Orders Only [facility] Physicians [facility] [address] [place] [address] [place] [phone] Yony Iverson DO 10/02/2024 2:30 PM CDT Office Visit [facility] Surgery [facility] 6th [place] [address] Deshaun Franco MD Invasive lobular carcinoma of breast, stage 1, right (HCC) 09/13/2024 4:30 PM CDT Infusion [address] [place] [phone] Invasive lobular carcinoma of breast, stage 1, right (HCC) (Primary Dx) 09/13/2024 4:00 PM CDT Office Visit [facility] [address] [place] [phone] Yony Iverson DO Invasive lobular carcinoma of breast, stage 1, right (HCC) (Primary Dx) 09/13/2024 3:30 PM CDT Lab [facility] at [address] [address] Invasive lobular carcinoma of breast, stage 1, right (HCC) 09/06/2024 7:43 AM CDT - 09/06/2024 11:59 PM CDT Hospital Encounter [facility] Medical Office Building [address] [place] [address] Invasive lobular carcinoma of breast, stage 1, right (HCC) Discharge Disposition: Discharge to home or self care 08/16/2024 8:15 AM CDT Infusion [facility] at [address] [phone] Invasive lobular carcinoma of breast, stage 1, right (HCC) (Primary Dx) 08/16/2024 Orders Only [facility]icians [facility] [address] [place] [phone] Yony Iverson DO from Last 3 Months Surgical History Surgery Date Site/Laterality Comments BREAST BIOPSY 06/21/2023 Right local in office MASTECTOMY Bilateral Medical History Medical History Date Comments Headache Overweight Hypercholesteremia Thyroid disease Anxiety Heart murmur informed of this as a child. Allergic rhinitis Asthma as a child Cancer (HCC) Family History Medical History Relation Name Comments [...] Not Answered Passive Exposure Comments:as a child [facility] Utilities Answer Date Recorded In the [...] often do you attend chur ch or scientologist services? 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 Gender Identity Not on file Sexual [...] 09/13/2024 4:00 PM CDT Plan of Treatment Health Maintenance [...] 05/03/2022, 01/08/2021, Additional history exists Influenza Vaccine (#1) 2024 Hepatitis B Screening Completed 12/27/2003, 004 HPV Vaccines Aged Out No longer eligi ble based on patient's age to complete this topic Medical Devices Implanted Type Area Oil Plant Operator Device Identifier Shelf Expiration Date Model / Serial / Lot [employer] Eviva 13cm Identifier Biopsy Site [id number] - [id number] Implanted:Qty: 1 on 06/21/2023 by Alhaji Guerrero MD at [facility] [employer] [id number] 12/01/2023 [facility] / / [id number] Procedures Procedure Name Priority Date/Time Associated Diagnosis [...] Read Routine (OP Routine) 06/07/2023 10:49 AM STAMP PRESS OPERATOR Mastodynia from Last 3 Months or Most [...] was last reviewed 2021. Testing performed by: [facility], [address] [place] [address]., [address] Blood 09/13/2024 3:29 PM CDT 09/13/2024 3:31 PM CDT us Yony Iverson DO LAB BLOOD ORDERABLES Final R esult [facility] [address] [facility] Department [place] [address] * Differential, auto (09/13/2024 3:29 PM CDT) Neutrophil abs 3.93 1.50 - 6.50 K/cumm Comment:Testing performed by : [address] [address] Imm gran abs 0.02 0.00 - 0.10 K/cumm [facility] Comment:Testing performed by : [address], [place]., [address] Lymphocyte abs 1.05 0.80 - 3.30 K/cumm [facility] Comment:Testing performed by : [address], [place]., [address] Monocyte abs 0.45 0.20 - 0.80 K/cumm [facility] Comment:Testing performed by : [address] [address] Eosinophil abs 0.17 0.00 - 0.50 K/cumm [facility] Comment:Testing performed by : [address] [address] Basophil abs 0.02 0.00 - 0.10 K/cumm [facility] Comment:Testing performed by : [address] [address] Neutrophil pct 69.6 % [facility] Comment: Interpretive Data Percent cell count reference ranges are not reported, since discordance with absolute values may lead to misinterpretation of CBC data. Current Interpretive Data was last revised on 2017. Testing performed by: [address] [address] Imm gran pct 0.4 % [facility] Comment: Interpretive Data Percent cell count reference ranges are not reported, since discordance with absolute values may lead to misinterpretation of CBC data. Current Interpretive Data was last revised on 2017. Testing performed by: [address] [address] Lymphocyte pct 18.6 % [facility] Comment: Interpretive Data Percent cell count reference ranges are not reported, since discordance with absolute values may lead to misinterpretation of CBC data. Current Interpretive Data was last revised on 2017. Testing performed by: [address] [address] Monocyte pct 8.0 % [facility] Comment: Interpretive Data Percent cell count reference ranges are not reported, since discordance with absolute values may lead to misinterpretation of CBC data. Current Interpretive Data was last revised on 2017. Testing performed by: [address] [address] Eosinophil pct 3.0 % [facility] Comment: Interpretive Data Percent cell count reference ranges are not reported, since discordance with absolute values may lead to misinterpretation of CBC data. Current Interpretive Data was last revised on 2017. Testing performed by: [address] [address] Basophil pct 0.4 % [facility] Comment: Interpretive Data Percent cell count reference ranges are not reported, since discordance with absolute values may lead to misinterpretation of CBC data. Current Interpretive Data was last revised on 2017. Testing performed by: [address] [address] Blood 09/13/2024 3:29 PM CDT 09/13/2024 3:31 PM CDT us Yony Iverson DO LAB BLOOD ORDERABLES Final R esult [facility] [address] [facility] Department [place] [address] * CBC with auto differential (09/13/2024 3:29 PM CDT) WBC 5.64 3.80 - 9.90 K/cumm Comment:Testing performed by : [address] [address] Hgb 13.0 11.9 - 15.5 g/dL [facility] Comment:Testing performed by : [address] [address] Hct 39.1 35.6 - 45.5 % [facility] Comment:Testing performed by : [address] [address] Plt 244 150 - 400 K/cumm [facility] Comment:Testing performed by : [address] [address] MPV 9.6 9.1 - 12.3 fL [facility] Comment:Testing performed by : [address] [address] RBC 4.74 3.90 - 5.20 M/cumm [facility] Comment:Testing performed by : [address] [address] MCV 82.5 81.3 - 96.4 fL [facility] Comment:Testing performed by : [address] [address] MCH 27.4 27.1 - 33.3 pg [facility] Comment:Testing performed by : [address] [address] MCHC 33.2 32.3 - 35.7 g/dL [facility] Comment:Testing performed by : [address] [address] RDW CV 14.0 11.1 - 14.9 % [facility] Comment:Testing performed by : [address], [address] RDW SD 41.7 35.7 - 48.1 fL [facility] Comment:Testing performed by : [address] [address] NRBC abs 0.00 0.00 - 0.01 K/cumm [facility] Comment:Testing performed by : [address] [address] ANC Prelim 3.93 1.50 - 6.50 K/cumm [facility] Comment: Interpretive Data The rapid ANC is a preliminary automated count and may vary from the final ANC (Neut Abs) reported in the WBC differential that follows. Current interpretive data was last revised 2024. Testing performed by: [address] [address] Blood 09/13/2024 3:29 PM CDT 09/13/2024 3:31 PM CDT Yony Iverson DO LAB BLOOD ORDERABLES Final R esult Performing Organization Address City/State/[facility] de Phone Number [facility] [address] [place] [address] * Cancer antigen 15-3 (09/13/2024 3:29 PM CDT) Pathologist [facility] CA 15-3 ag 14.5 0.0 - 25.0 units/mL Comment: Interpretive Data The Annmarie CA 15-3 assay procedure was used. Results from different manufacturers or methods may not be comparable. Serial testing should be performed using the same method. Testing performed by: [address] [address] Blood 09/13/2024 3:29 PM CDT 09/13/2024 4:26 PM CDT Yony Iverson DO LAB BLOOD ORDERABLES Final R esult Performing Organization Address [facility] de Phone Number RHINA [address] [place] [address] * Comprehensive metabolic panel (09/13/2024 3:29 PM CDT) [facility] Sodium 143 135 - 145 mmol/L Comment:Testing performed by : [address] [address] Potassium, pl 3.9 3.3 - 4.9 mmol/L [facility] Comment:Testing performed by : [address] [address] Chloride 106 97 - 110 mmol/L [facility] Comment:Testing performed by : [address] [address] CO2 25 22 - 32 mmol/L [facility] Comment:Testing performed by : [address] [address] Anion gap 12 2 - 15 mmol/L [facility] Comment:Testing performed by : [address] [address] BUN 16 6 - 25 mg/dL [facility] Comment:Testing performed by : [address] [address] Creatinine 0.90 0.60 - 1.10 mg/dL [facility] Comment:Testing performed by : [address] [address] Glucose 82 70 - 199 mg/dL RHINA [...] was last revised 2022. Testing performed by: [address] [address] Calcium 9.8 8.5 - 10.3 mg/dL [facility] Comment:Testing performed by : [address] [address] Bilirubin, total 0.2 0.1 - 1.2 mg/dL [facility] Comment:Testing performed by : [address] [address] Protein, pl 7.6 6.5 - 8.5 g/dL [facility] Comment:Testing performed by : [address] [address] Albumin 4.7 3.5 - 5.0 g/dL [facility] Comment:Testing performed by : [address] [address] Alk phos 110 40 - 130 Units/L [facility] Comment:Testing performed by : [address] [address] ALT 19 7 - 45 Units/L [facility] Comment:Testing performed by : [address] [address] AST 20 10 - 45 Units/L [facility] Comment:Testing performed by : [address] [address] Blood 09/13/2024 3:29 PM CDT 09/13/2024 3:31 PM CDT us Yony Iverson DO LAB BLOOD ORDERABLES Final R esult [facility] [address] [facility] Department [place] [address] * CT Chest Abdomen Pelvis W Contrast [...] Electronically signed by Lin Lock M.D. TW: TW Report ID: [id number] Reading Location: [id number] Procedure Note Lock, Lin Zarate MD - 09/07/2024 EXAM DESCRIPTION: CT CHEST [...] Lin Lock M.D. TW: [facility] Report ID: [id number] Reading Location: [id number] us Yony Iverson DO IMG CT PROCEDURES Final Resu lt * POCT creatinine for contrast evaluation (09/06/2024 8:09 AM CDT) Creatinine POC 1.00 0.60 - 1.10 mg/dL Comment:Testing performed by : [facility], [address] [place] [address]., [address] Blood 09/06/2024 8:09 AM CDT 09/06/2024 8:09 AM CDT us Yony Iverson DO POINT OF CARE TEST ORDERABLE S Final Result [facility] [address] [facility] [place] [address] * (ABNORMAL) Diagnostic Mammogram Bilateral W Loc (06/07/2023 10:49 AM STAMP PRESS OPERATOR) Anatomical Region Laterality Modality Breast Bilateral Mammography 06/07/2023 12:2 2 PM STAMP PRESS OPERATOR Narrative 06/07/2023 12:30 PM STAMP PRESS OPERATOR EXAM DESCRIPTION: US BREAST BILATERAL LIMITED; DIAGNOSTIC [...] Krystal Ho M.D. QX: QX Report ID: [id number] Reading Location: [facility] Pierce Alvarez MD IMG MAMMO PROCEDURES Fin al Result from Last 3 Months or Most Recently Relevant to Health Maintenance Insurance [facility] CHO[facility] PLUS [place] [id number] [facility] [id number] [facility] PL[facility] Advance Directives For more information, please contact: [phone] * Full Code (Latest Code Status on File) Date Activated Date Inactivated Comments 08/10/2023 1:46 PM 08/13/2023 1:51 PM Care Teams Book Canvasser Relationship Specialty Start Date End Date Israel Day MD PCP - General 11/19/19 Alhaji Guerrero MD [facility] [address] [place] [address] Surgeon Surgery 06/24/23 Celi Rodríguez MD [address] [place] [address] [address] [place], [place] [address] Radiation Oncologist Radiation Oncology 06/24/23 Yony Iverson DO [facility], [place] [address] [place] [address] Medical Oncologist/Animal Shelter Worker Hematology and Oncology 09/12/23
--- OUTSIDE RECORDS SUMMARY | 2024-10-30 09:13 | XMS_ITS | Data Portability ---
Author Organization [facility] [email or web address], Main Office Address [address] [place] [address] Assessment Encounter Date Assessment Date Assessment LastModified by Organization Details LastModified Time 07/19/2022 07/19/2022 will try wegovy no personal or family history of cancer or anything to suggest any in side effects discussed in detail other medical problems have been discussed blood work ordered follow-up in 4 weeks if starts injectable 4 months if not [id number] Not available 07/19/2022 14:44:10 Plan of Treatment Reminders Order Date Submit Date Provider Last Modified By Organization Details Last Modified Time Details Appointments None recorded. Lab T3, free, serum or plasma 2022 023 [facility] (Lab), [address] [place], [address], 3 16:11:06 TSH, serum or plasma 2022 023 [facility] (Lab), [address] [place], [address], 3 16:22:07 T4, free, serum 2022 023 [facility] (Lab), [address] [place], [address], 3 16:11:07 lipid panel, serum 2022 023 [facility] (Lab), [address] [place], [address], 3 16:05:50 CBC w/ auto diff 2022 023 [email or web address] [facility] (Lab), [address] [place], [address], 3 16:05:50 CMP, serum or plasma 2022 023 [facility] (Lab), [address] [place], [address], 3 16:05:50 Referral None recorded. Procedures None recorded. Surgeries None recorded. Imaging None recorded. Medication Orders Wegovy 0.25 mg/0.5 mL subcutaneou s pen injector 2022 023 [email or web address] [id number], [address] [place], [address], 3 16:05:50 Patient TargetsNo targets recorded. Patient InstructionsNo instructions recorded. Reason for Referral None Reported. Results Created Date Observation Date Name Description Value Unit Range Abnormal Flag Note LastModifiedBy Organization Detail LastModifiedTime 07/15/1907/14/2021 TSH thyroid-stim ulating hormone 2.940 uIU/m L 0.465- 4.680 Not Available [facility] (Lab) [address] [place], [address], 07/14/2021 19:12:12 07/15/19 22 07/14/2021 T4 FREE free T4 1.02 NG/dL 0.78-2 .19 Not Available [facility] (Lab) [address] [place], [address], 07/14/2021 18:53:43 07/15/19 22 07/14/2021 T3 FREE free T3 3.0 pg/mL 2.77-5 .27 Not Available [facility] (Lab) [address] [place], [address], 07/14/2021 18:53:38 07/15/19 22 07/14/2021 COMPR EHENS DAYANA METAB OLIC PANEL carbon dioxide 21 mmol/ L 22-30 low Not Available [facility] (Lab) [address] [place], [address], 07/14/2021 18:42:32 07/15/19 22 07/14/2021 COMPR EHENS DAYANA METAB OLIC PANEL sodium 136 mmol/ L 137-14 5 low Not Available [facility] (Lab) [address] [place], [address], 07/14/2021 18:42:32 07/15/19 22 07/14/2021 COMPR EHENS DAYANA METAB OLIC PANEL potassium 4.7 mmol/ L 3.5-5. 1 Not Available [facility] (Lab) [address] [place], [address], 07/14/2021 18:42:32 07/15/19 22 07/14/2021 COMPR EHENS DAYANA METAB OLIC PANEL chloride 104 mmol/ L 98-107 Not Available [facility] (Lab) [address] [place], [address], 07/14/2021 18:42:32 07/15/19 22 07/14/2021 COMPR EHENS DAYANA METAB OLIC PANEL agap 15.7 mmol/ L 14-22 Not Available [facility] (Lab) [address] [place], [address], 07/14/2021 18:42:32 07/15/19 22 07/14/2021 COMPR EHENS DAYANA METAB OLIC PANEL glucose 88 mg/dL 70-99 Not Available [facility] (Lab) [address] [place], [address], 07/14/2021 18:42:32 07/15/19 22 07/14/2021 COMPR EHENS DAYANA METAB OLIC PANEL BUN 20 mg/dL 8-19 high Not Available [facility] (Lab) [address] [place], [address], 07/14/2021 18:42:32 07/15/1907/14/2021 COMPR EHENS DAYANA METAB OLIC PANEL creatinine 0.76 mg/dL 0.66-1 .25 Not Available [facility] (Lab) [address] [place], [address], 07/14/2021 18:42:32 07/15/19 22 07/14/2021 COMPR EHENS DAYANA METAB OLIC PANEL GFR >60 Refer ence Range : Phelps ge GFR Healt hy Adult : >60 [...] or ethni c subgr oups, such as [facility] nics. Outsi de the valid ated angelo [...] on the F websi te: https :[email or web address] [email or web address].juice [email or web address] ailyn/pr silvaess ional s/kdo qi/gf r_cal culat or Not Available [facility] (Lab) [address] [place], [address], 07/14/2021 18:42:32 07/15/19 22 07/14/2021 COMPR EHENS DAYANA METAB OLIC PANEL alkaline phosphatase 91 U/L 38-126 Not Available [facility] (Lab) [address] [place], [address], 07/14/2021 18:42:32 07/15/19 22 07/14/2021 COMPR EHENS DAYANA METAB OLIC PANEL alanine aminotransfe rase 20 U/L 0-35 Not Available [facility] (Lab) [address] [place], [address], 07/14/2021 18:42:32 07/15/19 22 07/14/2021 COMPR EHENS DAYANA METAB OLIC PANEL aspartate aminotransfe rase 28 U/L 15-37 Not Available [facility] (Lab) [address] [place], [address], 07/14/2021 18:42:32 07/15/19 22 07/14/2021 COMPR EHENS DAYANA METAB OLIC PANEL bilirubin, total 0.40 mg/dL 0.20-1 .30 Not Available [facility] (Lab) [address] [place], [address], 07/14/2021 18:42:32 07/15/19 22 07/14/2021 COMPR EHENS DAYANA METAB OLIC PANEL calcium 10.1 mg/dL 8.4-10 .2 Not Available [facility] (Lab) [address] [place], [address], 07/14/2021 18:42:32 07/15/19 22 07/14/2021 COMPR EHENS DAYANA METAB OLIC PANEL total protein 8.0 g/dL 6.3-8. 2 Not Available [facility] (Lab) [address] [place], [address], 07/14/2021 18:42:32 07/15/19 22 07/14/2021 COMPR EHENS DAYANA METAB OLIC PANEL albumin 4.8 g/dL 3.4-5. 0 Not Available [facility] (Lab) [address] [place], [address], 07/14/2021 18:42:32 07/15/19 22 07/14/2021 COMPR EHENS DAYANA METAB OLIC PANEL globulin 3.2 g/dL 2.6-4. 2 Not Available [facility] (Lab) [address] [place], [address], 07/14/2021 18:42:32 07/15/19 22 07/14/2021 COMPR EHENS DAYANA METAB OLIC PANEL A/G ratio 1.5 ratio 1.0-2. 0 Not Available [facility] (Lab) [address] [place], [address], 07/14/2021 18:42:32 07/15/19 22 07/14/2021 LIPID PANEL cholesterol 183 mg/dL 140-19 9 NIH ETHAN NSUS RECOM MENDA TION FOR RENETTA STERO L: ADULT CHILD LOW RISK: <200 <170 BORDE RLINE : <200- 239 ----- HIGH RISK: >240 >200 Not Available [facility] (Lab) [address] [place], [address], 07/14/2021 18:42:26 07/15/19 22 07/14/2021 LIPID PANEL triglyceride s 93 mg/dL 0-150 NIH ETHAN NSUS REPOR T RECOM MENDA TION FOR TRIGL YCERI COOKIE: ADULT CHILD LOW RISK: <150 ----- BODER LINE: 150-1 99 ----- HIGH RISK: >200 ----- Not Available [facility] (Lab) [address] [place], [address], 07/14/2021 18:42:26 07/15/19 22 07/14/2021 LIPID PANEL HDL cholesterol 71 mg/dL 40- Not Available [facility] (Lab) [address] [place], [address], 07/14/2021 18:42:26 07/15/19 22 07/14/2021 LIPID PANEL [...] WILL NOT BE REPOR BLESSING. Not Available [facility] (Lab) [address] [place], [address], 07/14/2021 18:42:26 07/15/19 22 07/14/2021 CBC/C OMPLE TE BLD COUNT W/DIF F hematocrit 42.8 % 35.7-4 5.7 Not Available [facility] (Lab) [address] [place], [address], 07/14/2021 18:16:10 07/15/19 22 07/14/2021 CBC/C OMPLE TE BLD COUNT W/DIF F white blood cells 10.2 x10'3 /uL 4.2-10 .8 Not Available [facility] (Lab) [address] [place], [address], 07/14/2021 18:16:10 07/15/19 22 07/14/2021 CBC/C OMPLE TE BLD COUNT W/DIF F red blood cells 4.88 x10'6 /uL 3.80-5 .20 Not Available [facility] (Lab) [address] [place], [address], 07/14/2021 18:16:10 07/15/19 22 07/14/2021 CBC/C OMPLE TE BLD COUNT W/DIF F hemoglobin 13.8 g/dL 12.0-1 5.6 Not Available [facility] (Lab) [address] [place], [address], 07/14/2021 18:16:10 07/15/19 22 07/14/2021 CBC/C OMPLE TE BLD COUNT W/DIF F mean red cell volume 87.7 fL 82.0-9 9.0 Not Available [facility] (Lab) [address] [place], [address], 07/14/2021 18:16:10 07/15/19 22 07/14/2021 CBC/C OMPLE TE BLD COUNT W/DIF F mean red cell hemoglobin 28.3 pg 27.0-3 3.0 Not Available [facility] (Lab) [address] [place], [address], 07/14/2021 18:16:10 07/15/19 22 07/14/2021 CBC/C OMPLE TE BLD COUNT W/DIF F mean RBC HGB concentratio n 32.2 g/dL 31.0-3 6.0 Not Available [facility] (Lab) [address] [place], [address], 07/14/2021 18:16:10 07/15/19 22 07/14/2021 CBC/C OMPLE TE BLD COUNT W/DIF F red cell distribution width 14.2 % 11.8-1 5.5 Not Available [facility] (Lab) [address] [place], [address], 07/14/2021 18:16:10 07/15/19 22 07/14/2021 CBC/C OMPLE TE BLD COUNT W/DIF F platelets 248 x10'3 /uL 150-40 0 Not Available [facility] (Lab) [address] [place], [address], 07/14/2021 18:16:10 07/15/19 22 07/14/2021 CBC/C OMPLE TE BLD COUNT W/DIF F mean platelet volume 10.8 fL 9.0-12 .4 Not Available [facility] (Lab) [address] [place], [address], 07/14/2021 18:16:10 07/15/19 22 07/14/2021 CBC/C OMPLE TE BLD COUNT W/DIF F neutrophils 72.8 % 39.0-7 2.0 high Not Available [facility] (Lab) [address] [place], [address], 07/14/2021 18:16:10 07/15/19 22 07/14/2021 CBC/C OMPLE TE BLD COUNT W/DIF F lymphocytes 17.1 % 16.0-4 7.0 Not Available [facility] (Lab) [address] [place], [address], 07/14/2021 18:16:10 07/15/19 22 07/14/2021 CBC/C OMPLE TE BLD COUNT W/DIF F monocytes 7.8 % 5.0-12 .0 Not Available [facility] (Lab) [address] [place], [address], 07/14/2021 18:16:10 07/15/19 22 07/14/2021 CBC/C OMPLE TE BLD COUNT W/DIF F eosinophils 2.2 % 1.0-7. 0 Not Available [facility] (Lab) [address] [place], [address], 07/14/2021 18:16:10 07/15/19 22 07/14/2021 CBC/C OMPLE TE BLD COUNT W/DIF F basophils 0.1 % 0.0-2. 0 Not Available [facility] (Lab) [address] [place], [address], 07/14/2021 18:16:10 07/15/19 22 07/14/2021 CBC/C OMPLE TE BLD COUNT W/DIF F neutrophils, absolute count 7.45 x10'3 /uL 1.5-8. 0 Not Available [facility] (Lab) [address] [place], [address], 07/14/2021 18:16:10 07/15/19 22 07/14/2021 CBC/C OMPLE TE BLD COUNT W/DIF F basophils, absolute count 0.01 x10'3 /uL 0.01-0 .08 Not Available [facility] (Lab) [address] [place], [address], 07/14/2021 18:16:10 07/15/19 22 07/14/2021 CBC/C OMPLE TE BLD COUNT W/DIF F lymphocytes, absolute count 1.75 x10'3 /uL 1.07-3 .43 Not Available [facility] (Lab) [address] [place], [address], 07/14/2021 18:16:10 07/15/19 22 07/14/2021 CBC/C OMPLE TE BLD COUNT W/DIF F monocytes, absolute count 0.80 x10'3 /uL 0.29-0 .99 Not Available [facility] (Lab) [address] [place], [address], 07/14/2021 18:16:10 07/15/19 22 07/14/2021 CBC/C OMPLE TE BLD COUNT W/DIF F eosinophils, absolute count 0.22 x10'3 /uL 0.02-0 .53 Not Available [facility] (Lab) [address] [place], [address], 07/14/2021 18:16:10 07/20/19 23 07/19/2022 CBC/C OMPLE TE BLD COUNT W/DIF F white blood cells 6.8 x10'3 /uL 4.2-10 .8 Not Available [facility] (Lab) [address] [place], [address], 07/19/2022 15:35:59 07/20/19 23 07/19/2022 CBC/C OMPLE TE BLD COUNT W/DIF F red blood cells 4.79 x10'6 /uL 3.80-5 .20 Not Available [facility] (Lab) [address] [place], [address], 07/19/2022 15:35:59 07/20/19 23 07/19/2022 CBC/C OMPLE TE BLD COUNT W/DIF F hemoglobin 13.4 g/dL 12.0-1 5.6 Not Available [facility] (Lab) [address] [place], [address], 07/19/2022 15:35:59 07/20/19 23 07/19/2022 CBC/C OMPLE TE BLD COUNT W/DIF F hematocrit 41.9 % 35.7-4 5.7 Not Available [facility] (Lab) [address] [place], [address], 07/19/2022 15:35:59 07/20/19 23 07/19/2022 CBC/C OMPLE TE BLD COUNT W/DIF F mean red cell volume 87.5 fL 82.0-9 9.0 Not Available [facility] (Lab) [address] [place], [address], 07/19/2022 15:35:59 07/20/19 23 07/19/2022 CBC/C OMPLE TE BLD COUNT W/DIF F mean red cell hemoglobin 28.0 pg 27.0-3 3.0 Not Available [facility] (Lab) [address] [place], [address], 07/19/2022 15:35:59 07/20/19 23 07/19/2022 CBC/C OMPLE TE BLD COUNT W/DIF F mean RBC HGB concentratio n 32.0 g/dL 31.0-3 6.0 Not Available [facility] (Lab) [address] [place], [address], 07/19/2022 15:35:59 07/20/19 23 07/19/2022 CBC/C OMPLE TE BLD COUNT W/DIF F red cell distribution width 13.8 % 11.8-1 5.5 Not Available [facility] (Lab) [address] [place], [address], 07/19/2022 15:35:59 07/20/19 23 07/19/2022 CBC/C OMPLE TE BLD COUNT W/DIF F platelets 266 x10'3 /uL 150-40 0 Not Available [facility] (Lab) [address] [place], [address], 07/19/2022 15:35:59 07/20/19 23 07/19/2022 CBC/C OMPLE TE BLD COUNT W/DIF F mean platelet volume 10.5 fL 9.0-12 .4 Not Available [facility] (Lab) [address] [place], [address], 07/19/2022 15:35:59 07/20/19 23 07/19/2022 CBC/C OMPLE TE BLD COUNT W/DIF F neutrophils 70.1 % 39.0-7 2.0 Not Available [facility] (Lab) [address] [place], [address], 07/19/2022 15:35:59 07/20/19 23 07/19/2022 CBC/C OMPLE TE BLD COUNT W/DIF F lymphocytes 20.7 % 16.0-4 7.0 Not Available [facility] (Lab) [address] [place], [address], 07/19/2022 15:35:59 07/20/19 23 07/19/2022 CBC/C OMPLE TE BLD COUNT W/DIF F monocytes 6.5 % 5.0-12 .0 Not Available [facility] (Lab) [address] [place], [address], 07/19/2022 15:35:59 07/20/19 23 07/19/2022 CBC/C OMPLE TE BLD COUNT W/DIF F eosinophils 2.3 % 1.0-7. 0 Not Available [facility] (Lab) [address] [place], [address], 07/19/2022 15:35:59 07/20/19 23 07/19/2022 CBC/C OMPLE TE BLD COUNT W/DIF F basophils 0.3 % 0.0-2. 0 Not Available [facility] (Lab) [address] [place], [address], 07/19/2022 15:35:59 07/20/19 23 07/19/2022 CBC/C OMPLE TE BLD COUNT W/DIF F immature granulocytes 0.1 % 0.00-0 .50 Not Available [facility] (Lab) [address] [place], [address], 07/19/2022 15:35:59 07/20/19 23 07/19/2022 CBC/C OMPLE TE BLD COUNT W/DIF F neutrophils, absolute count 4.78 x10'3 /uL 1.5-8. 0 Not Available [facility] (Lab) [address] [place], [address], 07/19/2022 15:35:59 07/20/19 23 07/19/2022 CBC/C OMPLE TE BLD COUNT W/DIF F lymphocytes, absolute count 1.41 x10'3 /uL 1.07-3 .43 Not Available [facility] (Lab) [address] [place], [address], 07/19/2022 15:35:59 07/20/19 23 07/19/2022 CBC/C OMPLE TE BLD COUNT W/DIF F monocytes, absolute count 0.44 x10'3 /uL 0.29-0 .99 Not Available [facility] (Lab) [address] [place], [address], 07/19/2022 15:35:59 07/20/19 23 07/19/2022 CBC/C OMPLE TE BLD COUNT W/DIF F eosinophils, absolute count 0.16 x10'3 /uL 0.02-0 .53 Not Available [facility] (Lab) [address] [place], [address], 07/19/2022 15:35:59 07/20/19 23 07/19/2022 CBC/C OMPLE TE BLD COUNT W/DIF F basophils, absolute count 0.02 x10'3 /uL 0.01-0 .08 Not Available [facility] (Lab) [address] [place], [address], 07/19/2022 15:35:59 07/20/19 23 07/19/2022 CBC/C OMPLE TE BLD COUNT W/DIF F immature granulocytes ,absolute 0.01 x10'3 /uL 0.00-0 .05 Not Available [facility] (Lab) [address] [place], [address], 07/19/2022 15:35:59 07/20/19 23 07/19/2022 CBC/C OMPLE TE BLD COUNT W/DIF F nucleated red blood cells 0.0 % -0 Not Available [facility] (Lab) [address] [place], [address], 07/19/2022 15:35:59 07/20/19 23 07/19/2022 CBC/C OMPLE TE BLD COUNT W/DIF F NRBC# 0.00 x10'3 /uL Not Available [facility] (Lab) [address] [place], [address], 07/19/2022 15:35:59 07/20/19 23 07/19/2022 LIPID PANEL cholesterol 165 mg/dL 140-19 9 NIH ETHAN NSUS RECOM MENDA TION FOR RENETTA STERO L: ADULT CHILD LOW RISK: <200 <170 BORDE RLINE : <200- 239 ----- HIGH RISK: >240 >200 Not Available [facility] (Lab) [address] [place], [address], 07/19/2022 15:55:18 07/20/19 23 07/19/2022 LIPID PANEL triglyceride s 127 mg/dL 0-150 NIH ETHAN NSUS REPOR T RECOM MENDA TION FOR TRIGL YCERI COOKIE: ADULT CHILD LOW RISK: <150 ----- BODER LINE: 150-1 99 ----- HIGH RISK: >200 ----- Not Available [facility] (Lab) [address] [place], [address], 07/19/2022 15:55:18 07/20/19 23 07/19/2022 LIPID PANEL HDL cholesterol 62 mg/dL 40- Not Available [facility] (Lab) [address] [place], [address], 07/19/2022 15:55:18 07/20/19 23 07/19/2022 LIPID PANEL [...] WILL NOT BE REPOR BLESSING. Not Available [facility] (Lab) [address] [place], [address], 07/19/2022 15:55:18 07/20/1907/19/2022 COMPR EHENS DAYANA METAB OLIC PANEL sodium 139 mmol/ L 137-14 5 Not Available [facility] (Lab) [address] [place], [address], 07/19/2022 15:55:22 07/20/19 23 07/19/2022 COMPR EHENS DAYANA METAB OLIC PANEL potassium 4.0 mmol/ L 3.5-5. 1 Not Available [facility] (Lab) [address] [place], [address], 07/19/2022 15:55:22 07/20/19 23 07/19/2022 COMPR EHENS DAYANA METAB OLIC PANEL chloride 105 mmol/ L 98-107 Not Available [facility] (Lab) [address] [place], [address], 07/19/2022 15:55:22 07/20/19 23 07/19/2022 COMPR EHENS DAYANA METAB OLIC PANEL carbon dioxide 27 mmol/ L 22-30 Not Available [facility] (Lab) [address] [place], [address], 07/19/2022 15:55:22 07/20/19 23 07/19/2022 COMPR EHENS DAYANA METAB OLIC PANEL anion gap 11.0 mmol/ L 14-22 low Not Available [facility] (Lab) [address] [place], [address], 07/19/2022 15:55:22 07/20/19 23 07/19/2022 COMPR EHENS DAYANA METAB OLIC PANEL glucose 85 mg/dL 70-99 Not Available [facility] (Lab) [address] [place], [address], 07/19/2022 15:55:22 07/20/19 23 07/19/2022 COMPR EHENS DAYANA METAB OLIC PANEL BUN 15 mg/dL 8-19 Not Available [facility] (Lab) [address] [place], [address], 07/19/2022 15:55:22 07/20/19 23 07/19/2022 COMPR EHENS DAYANA METAB OLIC PANEL creatinine 1.09 mg/dL 0.66-1 .25 Not Available [facility] (Lab) [address] [place], [address], 07/19/2022 15:55:22 07/20/19 23 07/19/2022 COMPR EHENS DAYANA METAB OLIC PANEL GFR 55 Refer ence Range : Phelps ge GFR Healt hy Adult : >60 mL/mi n/1.7 3 m2 Chron ic Kidne y Disea se: 15-60 mL/mi n/1.7 3 m2 Kidne y Failu re: <15/m L/min /1.73 m2 www.n iddk. [facility].g ov The MDRD study equat ion has [...] calcu lator is avail able on the [facility] websi te: https :[email or web address] [email or web address] [email or web address] rg/pr ofess ional s/kdo qi/gf r_cal culat or Not Available [facility] (Lab) [address] [place], [address], 07/19/2022 15:55:22 07/20/19 23 07/19/2022 COMPR EHENS DAYANA METAB OLIC PANEL alkaline phosphatase 74 U/L 38-126 Not Available [facility] (Lab) [address] [place], [address], 07/19/2022 15:55:22 07/20/19 23 07/19/2022 COMPR EHENS DAYANA METAB OLIC PANEL alanine aminotransfe rase 19 U/L 0-35 Not Available [facility] (Lab) [address] [place], [address], 07/19/2022 15:55:22 07/20/19 23 07/19/2022 COMPR EHENS DAYANA METAB OLIC PANEL aspartate aminotransfe rase 24 U/L 15-37 Not Available [facility] (Lab) [address] [place], [address], 07/19/2022 15:55:22 07/20/19 23 07/19/2022 COMPR EHENS DAYANA METAB OLIC PANEL bilirubin, total 0.50 mg/dL 0.20-1 .30 Not Available [facility] (Lab) [address] [place], [address], 07/19/2022 15:55:22 07/20/19 23 07/19/2022 COMPR EHENS DAYANA METAB OLIC PANEL calcium 9.8 mg/dL 8.4-10 .2 Not Available [facility] (Lab) [address] [place], [address], 07/19/2022 15:55:22 07/20/19 23 07/19/2022 COMPR EHENS DAYANA METAB OLIC PANEL total protein 7.6 g/dL 6.3-8. 2 Not Available [facility] (Lab) [address] [place], [address], 07/19/2022 15:55:22 07/20/19 23 07/19/2022 COMPR EHENS DAYANA METAB OLIC PANEL albumin 4.6 g/dL 3.4-5. 0 Not Available [facility] (Lab) [address] [facility] [place], [address], 07/19/2022 15:55:22 07/20/19 23 07/19/2022 COMPR EHENS DAYANA METAB OLIC PANEL globulin 3.0 g/dL 2.6-4. 2 Not Available [facility] (Lab) [address] [place], [address], 07/19/2022 15:55:22 07/20/19 23 07/19/2022 COMPR EHENS DAYANA METAB OLIC PANEL A/G ratio 1.5 ratio 1.0-2. 0 Not Available [facility] (Lab) [address] [place], [address], 07/19/2022 15:55:22 07/20/19 23 07/19/2022 T3 FREE free T3 2.6 pg/mL 2.77-5 .27 low Not Available [facility] (Lab) [address] [place], [address], 07/19/2022 16:11:06 07/20/19 23 07/19/2022 T4 FREE free T4 1.14 NG/dL 0.78-2 .19 Not Available [facility] (Lab) [address] [place], [address], 07/19/2022 16:11:07 07/20/19 23 07/19/2022 TSH thyroid-stim ulating hormone 3.480 uIU/m L 0.465- 4.680 Not Available [facility] (Lab) [address] [place], [address], 07/19/2022 16:22:07 01/27/20 23 01/26/2023 CBC/C OMPLE TE BLD COUNT W/DIF F white blood cells 9.2 x10'3 /uL 4.2-10 .8 Not Available [facility] (Lab) [address] [place], [address], 01/26/2023 18:01:43 01/27/20 23 01/26/2023 CBC/C OMPLE TE BLD COUNT W/DIF F red blood cells 4.22 x10'6 /uL 3.80-5 .20 Not Available [facility] (Lab) [address] [place], [address], 01/26/2023 18:01:43 01/27/2001/26/2023 CBC/C OMPLE TE BLD COUNT W/DIF F hemoglobin 12.2 g/dL 12.0-1 5.6 Not Available [facility] (Lab) [address] [place], [address], 01/26/2023 18:01:43 01/27/2001/26/2023 CBC/C OMPLE TE BLD COUNT W/DIF F hematocrit 37.5 % 35.7-4 5.7 Not Available [facility] (Lab) [address] [place], [address], 01/26/2023 18:01:43 01/27/2001/26/2023 CBC/C OMPLE TE BLD COUNT W/DIF F mean red cell volume 88.9 fL 82.0-9 9.0 Not Available [facility] (Lab) [address] [place], [address], 01/26/2023 18:01:43 01/27/2001/26/2023 CBC/C OMPLE TE BLD COUNT W/DIF F mean red cell hemoglobin 28.9 pg 27.0-3 3.0 Not Available [facility] (Lab) [address] [place], [address], 01/26/2023 18:01:43 01/27/2001/26/2023 CBC/C OMPLE TE BLD COUNT W/DIF F mean RBC HGB concentratio n 32.5 g/dL 31.0-3 6.0 Not Available [facility] (Lab) [address] [place], [address], 01/26/2023 18:01:43 01/27/2001/26/2023 CBC/C OMPLE TE BLD COUNT W/DIF F red cell distribution width 13.8 % 11.8-1 5.5 Not Available [facility] (Lab) [address] [place], [address], 01/26/2023 18:01:43 01/27/2001/26/2023 CBC/C OMPLE TE BLD COUNT W/DIF F platelets 290 x10'3 /uL 150-40 0 Not Available [facility] (Lab) [address] [facility] [place], [address], 01/26/2023 18:01:43 01/27/2001/26/2023 CBC/C OMPLE TE BLD COUNT W/DIF F mean platelet volume 10.1 fL 9.0-12 .4 Not Available [facility] (Lab) [address] [place], [address], 01/26/2023 18:01:43 01/27/2001/26/2023 CBC/C OMPLE TE BLD COUNT W/DIF F neutrophils 67.2 % 39.0-7 2.0 Not Available [facility] (Lab) [address] [place], [address], 01/26/2023 18:01:43 01/27/2001/26/2023 CBC/C OMPLE TE BLD COUNT W/DIF F lymphocytes 22.0 % 16.0-4 7.0 Not Available [facility] (Lab) [address] [place], [address], 01/26/2023 18:01:43 01/27/2001/26/2023 CBC/C OMPLE TE BLD COUNT W/DIF F monocytes 7.3 % 5.0-12 .0 Not Available [facility] (Lab) [address] [place], [address], 01/26/2023 18:01:43 01/27/20 23 01/26/2023 CBC/C OMPLE TE BLD COUNT W/DIF F eosinophils 2.9 % 1.0-7. 0 Not Available [facility] (Lab) [address] [place], [address], 01/26/2023 18:01:43 01/27/2001/26/2023 CBC/C OMPLE TE BLD COUNT W/DIF F basophils 0.3 % 0.0-2. 0 Not Available [facility] (Lab) [address] [place], [address], 01/26/2023 18:01:43 01/27/2001/26/2023 CBC/C OMPLE TE BLD COUNT W/DIF F immature granulocytes 0.3 % 0.00-0 .50 Not Available [facility] (Lab) [address] [place], [address], 01/26/2023 18:01:43 01/27/2001/26/2023 CBC/C OMPLE TE BLD COUNT W/DIF F neutrophils, absolute count 6.19 x10'3 /uL 1.5-8. 0 Not Available [facility] (Lab) [address] [place], [address], 01/26/2023 18:01:43 01/27/2001/26/2023 CBC/C OMPLE TE BLD COUNT W/DIF F lymphocytes, absolute count 2.03 x10'3 /uL 1.07-3 .43 Not Available [facility] (Lab) [address] [place], [address], 01/26/2023 18:01:43 01/27/2001/26/2023 CBC/C OMPLE TE BLD COUNT W/DIF F monocytes, absolute count 0.67 x10'3 /uL 0.29-0 .99 Not Available [facility] (Lab) [address] [place], [address], 01/26/2023 18:01:43 01/27/2001/26/2023 CBC/C OMPLE TE BLD COUNT W/DIF F eosinophils, absolute count 0.27 x10'3 /uL 0.02-0 .53 Not Available [facility] (Lab) [address] [place], [address], 01/26/2023 18:01:43 01/27/2001/26/2023 CBC/C OMPLE TE BLD COUNT W/DIF F basophils, absolute count 0.03 x10'3 /uL 0.01-0 .08 Not Available [facility] (Lab) [address] [place], [address], 01/26/2023 18:01:43 01/27/2001/26/2023 CBC/C OMPLE TE BLD COUNT W/DIF F immature granulocytes ,absolute 0.03 x10'3 /uL 0.00-0 .05 Not Available [facility] (Lab) [address] [place], [address], 01/26/2023 18:01:43 01/27/2001/26/2023 CBC/C OMPLE TE BLD COUNT W/DIF F nucleated red blood cells 0.0 % -0 Not Available [facility] (Lab) [address] [place], [address], 01/26/2023 18:01:43 01/27/20 23 01/26/2023 CBC/C OMPLE TE BLD COUNT W/DIF F NRBC# 0.00 x10'3 /uL Not Available [facility] (Lab) [address] [place], [address], 01/26/2023 18:01:43 01/27/2001/26/2023 LIPID PANEL cholesterol 155 mg/dL 140-19 9 NIH ETHAN NSUS RECOM MENDA TION FOR RENETTA STERO L: ADULT CHILD LOW RISK: <200 <170 BORDE RLINE : <200- 239 ----- HIGH RISK: >240 >200 Not Available [facility] (Lab) [address] [place], [address], 01/26/2023 18:22:47 01/27/2001/26/2023 LIPID PANEL triglyceride s 123 mg/dL 0-150 NIH ETHAN NSUS REPOR T RECOM MENDA TION FOR TRIGL YCERI COOKIE: ADULT CHILD LOW RISK: <150 ----- BODER LINE: 150-1 99 ----- HIGH RISK: >200 ----- Not Available [facility] (Lab) [address] [place], [address], 01/26/2023 18:22:47 01/27/2001/26/2023 LIPID PANEL HDL cholesterol 52 mg/dL 40- Not Available [facility] (Lab) [address] [place], [address], 01/26/2023 18:22:47 01/27/2001/26/2023 LIPID PANEL LDL cholesterol, [...] WILL NOT BE REPOR BLESSING. Not Available [facility] (Lab) [address] [place], [address], 01/26/2023 18:22:47 01/27/2001/26/2023 COMPR EHENS DAYANA METAB OLIC PANEL sodium 138 mmol/ L 137-14 5 Not Available [facility] (Lab) [address] [place], [address], 01/26/2023 18:22:53 01/27/2001/26/2023 COMPR EHENS DAYANA METAB OLIC PANEL potassium 4.1 mmol/ L 3.5-5. 1 Not Available [facility] (Lab) [address] [place], [address], 01/26/2023 18:22:53 01/27/2001/26/2023 COMPR EHENS DAYANA METAB OLIC PANEL chloride 103 mmol/ L 98-107 Not Available [facility] (Lab) [address] [facility] [place], [address], 01/26/2023 18:22:53 01/27/2001/26/2023 COMPR EHENS DAYANA METAB OLIC PANEL carbon dioxide 27 mmol/ L 22-30 Not Available [facility] (Lab) [address] [place], [address], 01/26/2023 18:22:53 01/27/2001/26/2023 COMPR EHENS DAYANA METAB OLIC PANEL anion gap 12.1 mmol/ L 14-22 low Not Available [facility] (Lab) [address] [place], [address], 01/26/2023 18:22:53 01/27/2001/26/2023 COMPR EHENS DAYANA METAB OLIC PANEL glucose 87 mg/dL 70-99 Not Available [facility] (Lab) [address] [place], [address], 01/26/2023 18:22:53 01/27/2001/26/2023 COMPR EHENS DAYANA METAB OLIC PANEL BUN 15 mg/dL 8-19 Not Available [facility] (Lab) [address] [place], [address], 01/26/2023 18:22:53 01/27/2001/26/2023 COMPR EHENS DAYANA METAB OLIC PANEL creatinine 0.86 mg/dL 0.66-1 .25 Not Available [facility] (Lab) [address] [place], [address], 01/26/2023 18:22:53 01/27/2001/26/2023 COMPR EHENS DAYANA METAB OLIC PANEL GFR >60 Refer ence Range : Phelps ge GFR Healt hy Adult : >60 [...] calcu lator is avail able on the [facility] websi te: [email or web address] :[email or web address] culat or Not Available [facility] (Lab) [address] [place], [address], 01/26/2023 18:22:53 01/27/2001/26/2023 COMPR EHENS DAYANA METAB OLIC PANEL alkaline phosphatase 76 U/L 38-126 Not Available [facility] (Lab) [address] [place], [address], 01/26/2023 18:22:53 01/27/2001/26/2023 COMPR EHENS DAYANA METAB OLIC PANEL alanine aminotransfe rase 15 U/L 0-35 Not Available [facility] (Lab) [address] [place], [address], 01/26/2023 18:22:53 01/27/2001/26/2023 COMPR EHENS DAYANA METAB OLIC PANEL aspartate aminotransfe rase 20 U/L 15-37 Not Available [facility] (Lab) [address] [place], [address], 01/26/2023 18:22:53 01/27/2001/26/2023 COMPR EHENS DAYANA METAB OLIC PANEL bilirubin, total 0.30 mg/dL 0.20-1 .30 Not Available [facility] (Lab) [address] [place], [address], 01/26/2023 18:22:53 01/27/2001/26/2023 COMPR EHENS DAYANA METAB OLIC PANEL calcium 9.6 mg/dL 8.4-10 .2 Not Available [facility] (Lab) [address] [place], [address], 01/26/2023 18:22:53 01/27/2001/26/2023 COMPR EHENS DAYANA METAB OLIC PANEL total protein 7.1 g/dL 6.3-8. 2 Not Available [facility] (Lab) [address] [place], [address], 01/26/2023 18:22:53 01/27/2001/26/2023 COMPR EHENS DAYANA METAB OLIC PANEL albumin 4.2 g/dL 3.4-5. 0 Not Available [facility] (Lab) [address] [place], [address], 01/26/2023 18:22:53 01/27/2001/26/2023 COMPR EHENS DAYANA METAB OLIC PANEL globulin 2.9 g/dL 2.6-4. 2 Not Available [facility] (Lab) [address] [place], [address], 01/26/2023 18:22:53 01/27/2001/26/2023 COMPR EHENS DAYANA METAB OLIC PANEL A/G ratio 1.4 ratio 1.0-2. 0 Not Available [facility] (Lab) [address] [place], [address], 01/26/2023 18:22:53 01/27/20 23 01/26/2023 T4 FREE free T4 1.07 NG/dL 0.78-2 .19 Not Available [facility] (Lab) [address] [place], [address], 01/26/2023 20:46:11 01/27/20 23 01/26/2023 TSH thyroid-stim ulating hormone 2.070 uIU/m L 0.465- 4.680 Not Available [facility] (Lab) [address] [place], [address], 01/26/2023 20:46:13 01/27/2001/26/2023 T3 FREE free T3 3.4 pg/mL 2.77-5 .27 Not Available [facility] (Lab) [address] [place], [address], 01/26/2023 20:46:17 Result Notes None recorded. Problems Name Problem SNOMED Code Status Onset Date Resolution Date Notes Provider Name and Address Organization Details Recorded Time Otalgia 91913661 Completed Not Available [facility] 3 02:51:10 Abnormal weight gain 633986405 Active Not Available [facility] 3 06:31:01 Anxiety disorder 154184420 Active Not Available [facility] 3 06:31:01 Headache 25315947 Active Not Available [facility] 3 06:31:01 Vertigo 152740905 Active Not Available [facility] 3 06:31:01 Pharyngiti s 615195577 Completed Not Available [facility] 3 02:51:11 Perennial allergic rhinitis 122207999 Completed Not Available [facility] 3 02:51:11 Laryngitis 81823869 Completed Not Available [facility] 3 02:51:11 Anxiety 64563758 Active Not Available [facility] 3 06:31:01 Upper respirator y infection 28798624 Completed Not Available [facility] 3 02:51:11 Hyperlipid emia 53673928 Active Not Available [facility] 3 06:31:01 Premenstru al dysphoric disorder 672127 Active Not Available [facility] 3 06:31:01 Rhinitis 70060683 Completed Not Available [facility] 3 02:51:11 Fatigue 25285718 Active Not Available [facility] 3 06:31:01 Hypothyroi dism 08904093 Active 2020 Not Available [facility] 3 06:31:01 Overweight 712490343 Active 2022 Not Available [facility] 3 06:31:01 Acute sinusitis 31928935 Active 2022 Not Available [facility] 3 06:31:01 Problem Notes None recorded. Procedures Surgical History Date Name Laterality Status Provider Name and Address Organization Details Recorded Time 1 Most Recent Mammogram completed Not Available [facility] 06/09/2022 02:44:50 0 Date of Last Pap Smear completed Not Available [facility] 06/09/2022 02:44:50 Imaging Results None recorded. Procedure Notes None recorded. Medical Equipment None Reported. Allergies Allergen ID Allergen Name Allergen Category Reaction Reaction Severity Criticality Documentation Date Start Date Code Code System Note Provider Name and Address Organization Details Recorded Time 4560 Substance with sulfonami de structure and antibacte rial mechanism of action (substanc e) medicatio n rash Not available Not available 06/09/2022 43238 8003 SNOMED Not Available [facility] 3 02:59:02 4561 Product containin g penicilli n (product) medicatio n anaphylax is Not available Not available 06/09/2022 10939 8001 SNOMED Not Available [facility] 3 02:59:03 4562 Macrobid medicatio n rash Not available Not available 06/09/2022 90236 1 RxNorm Not Available [facility] 3 02:59:03 Medications Name Sig Start [...] t Available Vitals Date Recorded Body height Provider Name an d Address Organization Details Last Updated DateTime 04/27/2021 165.1 cm Not Available [facility] 3 02:47:45 Date Recorded Body mass index (BMI) Body height Heart rate Body temperature Body weight Systolic And Diastolic Provider Name and Address Organization Details Last Updated DateTime 2 33.6 kg/m2 165.1 cm 72 /min 98.3 [degF] 54869.6 6 g 124/70 mm[Hg] Not Available [facility] 3 02:47:44 Date Recorded Body height Body mass index (BMI) Body weight Body temperature Heart rate Systolic And Diastolic Provider Name and Address Organization Details Last Updated DateTime 3 165.1 cm 34.3 kg/m2 01265.0 3 g 97.8 [degF] 77 /min 118/74 mm[Hg] Dolores kauffman RN [place] [facility] [place] [facility] 3 14:08:27 Date Recorded Body mass index (BMI) Body height Heart rate Body temperature Body weight Systolic And Diastolic Provider Name and Address Organization Details Last Updated DateTime 2 33.8 kg/m2 165.1 cm 64 /min 97.4 [degF] 91933.2 5 g 120/84 mm[Hg] Not Available [facility] 3 02:47:44 Date Recorded Body mass index (BMI) Body height Heart rate Body temperature Body weight Systolic And Diastolic Provider Name and Address Organization Details Last Updated DateTime 1 33.1 kg/m2 165.1 cm 84 /min 96.6 [degF] 31450.8 8 g 122/70 mm[Hg] Not Available [facility] 3 02:47:44 Social History Question Answer Notes LastModified by Organization Details LastModified Time Tobacco Smoking Status Never Smoker Not Available [facility] 06/09/2022 02:36:51 Do You Have An Advance Directive? No MIGRATION.030 [id number] Information not available 06/09/2022 What Is Your Level Of Caffeine Consumption? Heavy MIGRATION.030 939975 Information not available 06/09/2022 How Much Tobacco Do You Chew? None MIGRATION.030 276723 Information not available 06/09/2022 In The 14 Days Before Symptom Onset, Have You Had Close Contact With A Laboratory-confi rmed COVID-19 While That Case Was Ill? Yes MIGRATION.030 105262 Information not available 06/09/2022 In The 14 Days Before Symptom Onset, Have You Had Close Contact With A Person Who Is Under Investigation For COVID-19 While That Person Was Ill? Yes MIGRATION.030 486581 Information not available 06/09/2022 What Type Of Diet Are You Following? REGULAR MIGRATION.030 112520 Information not available 06/09/2022 Which Illicit Or Recreational Drugs Have You Used? No MIGRATION.0301 [id number] Information not available 06/09/2022 What Is The Highest Grade Or Level Of School You Have Completed Or The Highest Degree You Have Received? [id number] MIGRATION.0301 [id number] Information not available 06/09/2022 Have There Been Any Changes To Your Family Or Social Situation? No MIGRATION.0301 [id number] Information not available 06/09/2022 What Is The Fluoride Status Of Your Home? Fluoridated MIGRATION.0301 025100 Information not available 06/09/2022 Are There Any Guns Present In Your Home? Yes Kept Secured MIGRATION.0301 090964 Information not available 06/09/2022 Where Do You Live? SingleLevelHouse MIGRATION.0301 583661 Information not available 06/09/2022 Do You Have A Medical Power Of Stone Derrickman And Rigger? No MIGRATION.0301 463449 Information not available 06/09/2022 What Was The Date Of Your Most Recent Tobacco Screening? 02/16/2022 MIGRATION.0301 201924 Information not available 06/09/2022 Have You Ever Been Counseled For Unhealthy Alcohol Use? No MIGRATION.0301 103729 Information not available 06/09/2022 Do You Have Any Pets? Yes 4 Dogs MIGRATION.0301 376047 Information not available 06/09/2022 What Is Your Relationship Status? MIGRATION.0301 370306 Information not available 06/09/2022 Do You Use Your Seat Belt Or Car Seat Routinely? Yes MIGRATION.0301 374070 Information not available 06/09/2022 Do You Have Smoke And Carbon Monoxide Detectors In Your Home? Yes MIGRATION.0301 060844 Information not available 06/09/2022 Are You Passively Exposed To Smoke? No MIGRATION.0301 008720 Information not available 06/09/2022 How Much Tobacco Do You Smoke? No MIGRATION.0301 222392 Information not available 06/09/2022 What Types Of Sporting Activities Do You Participate In? None MIGRATION.0301 040385 Information not available 06/09/2022 Do You Use Sunscreen Routinely? Yes MIGRATION.0301 045688 Information not available 06/09/2022 Has Tobacco Cessation Counseling Been Provided? No MIGRATION.0301 309762 Information not available 06/09/2022 Have You Recently Traveled Abroad? No MIGRATION.0301 062922 Information not available 06/09/2022 Do You Have Any Dietary Restrictions? No MIGRATION.0301 861549 Information not available 06/09/2022 Sex: Female Functional Status Question Answer Note LastModified by [facility] Details LastModified Time Do you use any illicit or recreational drugs? No MIGRATION.677208 9294 Information not available 06/09/2022 Do you or have you ever used any other forms of tobacco or nicotine? No MIGRATION.774068 9189 Information not available 06/09/2022 What is your level of alcohol consumption? Occasional MIGRATION.550213 0770 Information not available 06/09/2022 Do you or have you ever used smokeless tobacco? 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 Never used electronic cigarettes MIGRATION.639288 5224 Information not available 06/09/2022 What is your exercise level? Occasional MIGRATION.070309 7793 Information not available 06/09/2022 Mental Status Question Answer Note LastModified by Organizat ion Details LastModified Time Do you feel stressed (tense, restless, nervous, or anxious, or unable to sleep at night)? PA71848-1 MIGRATION.203888220 6 Information not available 06/09/2022 Family History Relationship Description Onset Age of this Age Resolved Age Notes LastModified by Organization Details LastModified Time Father Family history of malignant neoplasm deceas ed MIGRATION.968 [id number] Not available 06/09/2022 02:44:58 Mother Family history of malignant neoplasm deceas ed MIGRATION.461 [id number] Not available 06/09/2022 02:44:58 Sister Hyperlipidem ia MIGRATION.092 3265539 Not available 06/09/2022 02:44:58 Maternal Uncle Diabetes mellitus MIGRATION.656 [id number] Not available 06/09/2022 02:44:58 Paternal Grandmother Family history of malignant neoplasm MIGRATION.736 [id number] Not available 06/09/2022 02:44:58 Medical History Condition [...] Immunizations Vaccine Type Date Status Note Provider Wesley tiwari and Address Organization Details Recorded Time COVID-19 vaccine, vector-nr, rS-Ad26, PF, 0.5 mL 07/16/2020 completed Not Available [facility] 06:31:01 Past Encounters Encounter ID Performer Location Encounter Start Date Encounter Closed Date Diagnosis/Indication Diagnosis SNOMED-CT Code Diagnosis ICD10 Code Diagnosis Note [id number] [facility]_M IGR[facility]_ DEFAULT_1 _1 , 06/23/2020 00:00:00 06/23/2020 19:14:29 [id number] [facility] _[facility]NA_M IGRATION_ DEFAULT_1 _1 , 09/22/2020 00:00:00 09/22/2020 14:34:23 [id number] [facility] _[facility]HENA_M IGRATION_ DEFAULT_1 _1 , 10/20/2020 00:00:00 10/20/2020 17:03:12 [id number] Israel Day MD [facility] Internal Med [facility] [address] [address] 01/19/2021 00:00:00 01/19/2021 22:46:08 [id number] Israel Day MD [facility] Internal Med [facility] [address] [address] 02/23/2021 00:00:00 03/07/2021 17:13:15 [id number] Israel Day MD [facility] Internal Med [facility] [address] [facility] [address] 04/27/2021 00:00:00 05/02/2021 18:10:06 [id number] Israel Day MD [facility] Internal Med [facility] [address] [facility] [address] 07/14/2021 00:00:00 07/14/2021 22:42:00 [id number] Israel Day MD [facility] Internal Med [facility] [address] [facility] , [facility] [place] [address] 02/16/2022 00:00:00 02/16/2022 22:03:57 [id number] Israel Day MD [facility] Internal Med [facility] [address] [facility], [facility] [address] [place] [address] 07/19/2022 13:48:10 07/19/2022 14:39:36 Hyperlipidemia 87034155 E78.5 Hypothyroidism 95498352 E03.9 Overweight 569501241 E66 .3 Headache 61543391 R51.9 Anxiety 19279900 F41.9 Health Concerns Section Related Observation LastModified by Organization Detai ls LastModified Time None Recorded Concern Status LastModified by Organization Details LastModified Time None Recorded Advance Directives Directive N: Payers Insurance Date Sequence Insurance Name Policy Number Policy Ndiaye Covered Member ID Ndiaye Member ID Guarantor Name 02/27/2023 1 [facility] [id number] Beverly Allen [id number] Beverly Allen 02/27/2023 2 [employer] OPEN ACCESS Dylon Allen [id number] Beverly Allen Notes Date Note Type Note Provider Name and Address Organization Details Recorded Time 3 text/html migraines seem to be doing fineoverweight nothing helpinghyperlipidemia nothing helping his weightanxiety doing fine Israel Day MD [address] [facility] [address], [place], [address], [facility] [employer] 07/19/2022 14:44:28 OBGyn Episode No OBEpisode recorded.
[2024-10-30 10:19] LABS: Free T3 3.03 pg/mL (2.71-6.16); Free T4 Free Thyroxine 1.20 ng/dL (0.78-2.19)
[2024-10-30 10:29] LABS: Thyroid Stimulating Hormone 5.310 uIU/mL (0.465-4.680)
== END 2024-10-30 09:07 | disposition home or self-care (01) ==
PROVIDERS: PCP Internal Medicine; Visit Provider Internal Medicine
DX: E03.9 Hypothyroidism, unspecified (principal)
CPT/HCPCS: 36415; 84439; 84443; 84481